=== PATIENT | male | born 1970 ===

== ENCOUNTER 2020-06-19 08:18 | Outpatient (REF) | payer OTHER, SELFPAY ==
[2020-06-19 12:02] LABS: Estimated Average Glucose 192 mg/dL; Hemoglobin A1c % 8.3 %
[2020-06-19 12:18] LABS: Microalbum/Creatinine Ratio Ur 29.4 ug/mg cr
[2020-06-19 12:20] LABS: Alanine Aminotransferase 21 U/L (0-40); Albumin Level 4.4 g/dL (3.5-5.0); Alkaline Phosphatase 92 U/L (39-117); Anion Gap 10 (12-20); Aspartate Amino Transferase 16 U/L (5-37); Bilirubin Total 0.7 mg/dL (0.0-1.0); Blood Urea Nitrogen 13 mg/dL (9-16); Calcium 9.4 mg/dL (8.4-10.2); Carbon Dioxide 29 mmol/L (22-29); Chloride 102 mmol/L (96-108); Cholesterol 131 mg/dL; Estimated Glomerular Filt Rate > 60; Glucose Fasting 188 mg/dL (60-99); HDL Cholesterol 41 mg/dL; LDL Cholesterol Calculated 80 mg/dl; Potassium 4.4 mmol/L (3.3-5.1); Sodium 137 mmol/L (135-145); Total Protein 7.8 g/dL (6.5-8.0); Triglycerides 52 mg/dL
[2020-06-20 05:42] LABS: LDL Cholesterol Direct 79 mg/dL (<100)
== END 2020-06-19 08:19 | disposition home or self-care (01) ==
LOC: HO.LAB 08:18
PROVIDERS: Visit Provider Nurse Practitioner Gerontology
DX: E11.65 Type 2 diabetes mellitus with hyperglycemia (principal); E11.42 Type 2 diabetes mellitus with diabetic polyneuropathy; Z79.4 Long term (current) use of insulin; I10 Essential (primary) hypertension; E78.5 Hyperlipidemia, unspecified; E66.09 Other obesity due to excess calories
CPT/HCPCS: 36415; 80053; 80061; 82043; 83036; 83721

== ENCOUNTER → 2020-07-11 12:35 | Outpatient (BNVA) | payer OTHER, SELFPAY | PROVIDERS: PCP Internal Medicine; Visit Provider Internal Medicine Cardiovascular Disease | DX: G47.30 Sleep apnea, unspecified (principal); I25.5 Ischemic cardiomyopathy | CPT/HCPCS: 93005; 99212 ==

== ENCOUNTER → 2020-08-08 10:16 | Outpatient (REF) | payer OTHER, SELFPAY | LOC: HO.SL 10:16 | PROVIDERS: PCP Internal Medicine; Visit Provider Internal Medicine Cardiovascular Disease | DX: G47.30 Sleep apnea, unspecified (principal) | CPT/HCPCS: 95806 ==

== ENCOUNTER → 2020-10-04 13:03 | Outpatient (BNVA) | payer OTHER, SELFPAY | PROVIDERS: PCP Internal Medicine; Visit Provider Nurse Practitioner Gerontology ==

== ENCOUNTER 2021-03-11 12:40 | Outpatient (REF) | payer OTHER, SELFPAY ==
--- NOTE | ~2021-03-11 | XR_ITS ---
EXAMINATION: XR RIBS, LEFT CLINICAL INFORMATION: S20.219A - Contusion of unspecified front wall of thorax COMPARISON: Chest radiographs 06/22/2019 TECHNIQUE: Frontal view chest and 3 views left ribs are obtained for a total of 4 views. FINDINGS: There is no visible rib fracture or rib destructive process. The lungs are clear. There is no pneumothorax or pleural reaction, infiltrate, or effusion. The heart is normal in size. The hilar and mediastinal contours are similar to prior studies. Thoracic spine again show dextrocurvature curvature with degenerative changes. XR/XR ribs LT min 3V w CXR1V IMPRESSION: Unremarkable examination.
== END 2021-03-11 12:41 | disposition home or self-care (01) ==
LOC: HO.HMGCX 12:40
PROVIDERS: PCP Internal Medicine; Visit Provider Internal Medicine
DX: S20.212A Contusion of left front wall of thorax, initial encounter (principal)
CPT/HCPCS: 71101

== ENCOUNTER → 2021-04-23 09:12 | Outpatient (BNVA) | payer OTHER, SELFPAY | PROVIDERS: PCP Internal Medicine; Visit Provider Nurse Practitioner Gerontology ==

== ENCOUNTER 2021-07-01 11:35 | Outpatient (REF) | payer OTHER, SELFPAY ==
[2021-07-01 13:07] LABS: Alanine Aminotransferase 21 U/L (0-40); Albumin Level 4.5 g/dL (3.5-5.0); Alkaline Phosphatase 102 U/L (39-117); Anion Gap 12 (12-20); Aspartate Amino Transferase 16 U/L (5-37); Bilirubin Total 0.6 mg/dL (0.0-1.0); Blood Urea Nitrogen 16 mg/dL (9-16); Calcium 10.3 mg/dL (8.4-10.2); Carbon Dioxide 26 mmol/L (22-29); Chloride 105 mmol/L (96-108); Cholesterol 165 mg/dL; Estimated Glomerular Filt Rate > 60; Glucose Fasting 141 mg/dL (60-99); HDL Cholesterol 41 mg/dL; LDL Cholesterol Calculated 112 mg/dl; Potassium 4.3 mmol/L (3.3-5.1); Sodium 139 mmol/L (135-145); Triglycerides 62 mg/dL
[2021-07-01 14:02] LABS: Estimated Average Glucose 177 mg/dL; Hemoglobin A1c % 7.8 %
[2021-07-01 14:23] LABS: Creatinine Urine 88.02 mg/dL; Microalbum/Creatinine Ratio Ur 12.4 ug/mg cr
[2021-07-02 07:41] LABS: LDL Cholesterol Direct 114 mg/dL (<100)
== END 2021-07-01 11:36 | disposition home or self-care (01) ==
LOC: HO.LAB 11:35
PROVIDERS: PCP Internal Medicine; Visit Provider Nurse Practitioner Gerontology
DX: E11.65 Type 2 diabetes mellitus with hyperglycemia (principal); Z79.4 Long term (current) use of insulin
CPT/HCPCS: 36415; 80053; 80061; 82043; 83036; 83721

== ENCOUNTER → 2021-10-06 13:21 | Outpatient (REF) | payer OTHER, SELFPAY ==
--- NOTE | 2021-10-06 13:25 | CA_ITS ---
Transthoracic Echocardiogram Patient (Last, First, Middle): Jd Li A Gender: Male Date of : 1970 Age: 51 Procedure Date: 10/06/2021 Procedure Type: Transthoracic Echocardiogram Location: OP Height: 187.96 cm Weight: 126.1 kg BSA: 2.50 m2 Heart Rate: bpm BP: 126 / 80 mmHg Restorative Art Embalmer: BECKIE Referring MD: Reggie Guerin MD Symptoms: ISCHEMIC CARDIOMYOPATHY Study Quality: Technically Difficult/contrast Conclusions: - 1. Moderate LV systolic dysfunction with LVEF of 35-40% with regional wall motion abnormality in the LAD territory consistent with ischemic cardiomyopathy with impaired relaxation filling pattern 2. Normal cardiac valvular Dopplers 3. No gross pericardial effusion 4. Normal RV systolic pressure Findings Procedure Information Contrast agent, definity, is being given per protocol without apparent complications. Left Ventricle Normal left ventricular cavity size. There is mildly increased left ventricular wall thickness. The left ventricular systolic function is moderately decreased. The visually estimated ejection fraction is between 35 40%. Spectral Doppler is indicative of an impaired relaxation filling pattern. E/E prime ratio is between 8 and 15 consistent with indeterminate filling pressures. Wall Motion Rest Echo Findings The mid inferoseptal segment is hypokinetic. The apex, apical anterior, apical inferior, mid anterior, apical septum, and mid anteroseptal segments are akinetic. All other scored wall segments showed normal motion. Right Ventricle Normal right ventricular cavity size and systolic function. Atria The left atrium is likely dilated. Interatrial shunt cannot be excluded. The right atrium was not well visualized. Aortic Valve The aortic valve structure and function is likely normal. There is no aortic valve stenosis. There is no aortic valve regurgitation. Mitral Valve Normal mitral valve structure and function. There is trace mitral valve regurgitation. There is no mitral valve stenosis. Pulmonic Valve The pulmonic valve was not well visualized. Tricuspid Valve Likely normal tricuspid valve structure and function. There is trace tricuspid valve regurgitation. The right ventricular systolic pressure is normal. The right ventricular systolic pressure is 18 mmHg. Normal right atrial pressure. There is no evidence of pulmonary hypertension. Great Vessels All visible segments of the aorta are normal in size. The pulmonary artery was not well visualized. Venous The inferior vena cava is normal in size. Pericardium/Pleural There is no evidence of pericardial effusion. Prior Study Comparison No significant change compared to prior study dated: 01/16/2019. Measurements 2D Linear Measurements IVSd: 1.37 0.6-0.9/0.6-1.0 cm LVIDd: 4.81 3.9-5.3/4.2-5.9 cm LVIDd Index: 1.92 2.4-3.2/2.2-3.1 cm/m2 LVIDs: 3.96 2.0-3.6 cm LVPWd: 1.32 0.7-1.1 cm LA Diam: 4.10 2.7-3.8/3.0-4.0 cm LAIDs Index: 1.64 1.5-2.3 cm/m2 LV Mass: 323.01 67-162/88-224 g LV Mass Index: 129.21 43-95/49-115 g/m2 LVOT Diam: 2.60 3.0+(-)1.3 cm 2D Systolic Function EF 4C: 36.40 >55% EF 2C: 43.20 >55% EF BiP: 39.80 >55% Aortic Valve AoV Pk Marek: 1.00 AoV Mn Marek: 0.74 AoV VTI: 0.15 AoV Pk Grad: 4.00 Aov Mn Grad: 2.00 TRISHA Cont.VTI: 4.08 LVOT LVOT Pk Marek: 0.79 LVOT Mn Marek: 0.52 LVOT VTI: 0.11 LVOT Pk Grad: 2.00 LVOT Mn Grad: 1.00 LVOT Diam: 2.60 LVOT Area: 5.31 Right Ventricle TAPSE (mm): 25.70 TVS' Marek: 9.79 Tricuspid Valve TR Pk Marek: 1.95 TR Pk Grad: 15.00 RA Press: 3.00 RVSP: 18.00 Great Vessels Aorta Sinus of Valsalva: 4.41 2.0-3.[address] Ridge: 3.28 1.7-3.4 cm Ao Asc: 3.40 2.1-3.4 cm Ao Arch: 2.60 Updated in Other Vendor System with Status of Final Nikolai Weiss MD electronically signed on 10/07/2021 2:03:28 PM with status of Final
== END ==
LOC: HO.CARD 13:21
PROVIDERS: PCP Internal Medicine; Visit Provider Internal Medicine Cardiovascular Disease
DX: I25.5 Ischemic cardiomyopathy (principal)
CPT/HCPCS: 93306; Q9957

== ENCOUNTER → 2021-10-14 13:32 | Outpatient (BNVA) | payer OTHER, SELFPAY | PROVIDERS: PCP Internal Medicine; Referring Provider Internal Medicine; Visit Provider Nurse Practitioner Family | DX: I25.10 Atherosclerotic heart disease of native coronary artery without angina pectoris (principal); G47.33 Obstructive sleep apnea (adult) (pediatric); I25.5 Ischemic cardiomyopathy; I10 Essential (primary) hypertension; E78.5 Hyperlipidemia, unspecified; E66.09 Other obesity due to excess calories; Z68.36 Body mass index [BMI] 36.0-36.9, adult | CPT/HCPCS: 93005; 99212 ==

== ENCOUNTER 2022-07-29 11:16 | Outpatient (REF) | payer OTHER, SELFPAY ==
[2022-07-29 11:27] LABS: MANUAL DIFF FLAG NO
[2022-07-29 11:43] LABS: Basophils Percent Auto 0.5 % (0-2); Eosinophils Absolute Auto 0.2 X10*3/uL (0.0-0.4); Eosinophils Percent Auto 4.3 % (0-4); Hematocrit 41.1 % (42.0-52.0); Hemoglobin 13.7 g/dl (14.0-18.0); Imm Gran Abs Auto 0.03 X10*3/uL (0.00-0.03); Imm Gran Pct Auto 0.5 % (0.0-0.4); Lymphocytes Absolute Auto 1.4 X10*3/uL (1.2-4.9); Lymphocytes Percent Auto 24.3 % (20-40); Mean Corpuscular HGB Conc 33.3 g/dl (31.0-36.0); Mean Corpuscular Hemoglobin 27.3 pg (27.0-33.0); Monocytes Absolute Auto 0.5 X10*3/uL (0.1-1.2); Monocytes Percent Auto 9.6 % (2-11); Neutrophils Absolute Auto 3.4 x10*3/uL (2.0-8.3); Neutrophils Percent Auto 60.8 % (45-73); Platelet Count 190 X10*3/uL (160-400); Red Blood Count 5.01 X10*6/uL (4.60-5.80); Red Cell Distribution Width 12.8 % (11.0-16.0); White Blood Count 5.6 X10*3/uL (4.8-10.8)
[2022-07-29 12:11] LABS: Estimated Average Glucose 289 mg/dL; Hemoglobin A1c % 11.7 %
[2022-07-29 12:47] LABS: Creatinine Urine 142.23 mg/dL; Microalbum/Creatinine Ratio Ur 35.1 ug/mg cr
[2022-07-29 12:52] LABS: Alanine Aminotransferase 17 U/L (0-40); Albumin Level 4.1 g/dL (3.5-5.0); Alkaline Phosphatase 83 U/L (39-117); Anion Gap 11 (12-20); Aspartate Amino Transferase 16 U/L (5-37); Bilirubin Total 0.7 mg/dL (0.0-1.0); Blood Urea Nitrogen 13 mg/dL (9-16); Calcium 9.1 mg/dL (8.4-10.2); Carbon Dioxide 27 mmol/L (22-29); Chloride 104 mmol/L (96-108); Cholesterol 106 mg/dL; Estimated Glomerular Filt Rate > 60; Glucose Fasting 254 mg/dL (60-99); HDL Cholesterol 33 mg/dL; LDL Cholesterol Calculated 62 mg/dl; Potassium 4.7 mmol/L (3.3-5.1); Sodium 137 mmol/L (135-145); Total Protein 6.8 g/dL (6.5-8.0); Triglycerides 57 mg/dL
== END 2022-07-29 11:17 | disposition home or self-care (01) ==
LOC: HO.LAB 11:16
PROVIDERS: PCP Internal Medicine; Visit Provider Internal Medicine
DX: D64.9 Anemia, unspecified (principal); N28.9 Disorder of kidney and ureter, unspecified; E78.5 Hyperlipidemia, unspecified; E11.69 Type 2 diabetes mellitus with other specified complication; E66.01 Morbid (severe) obesity due to excess calories; E03.9 Hypothyroidism, unspecified; E11.65 Type 2 diabetes mellitus with hyperglycemia
CPT/HCPCS: 36415; 80053; 80061; 82043; 83036; 84443; 85025

== ENCOUNTER → 2022-08-13 15:48 | Outpatient (BNVA) | payer OTHER, SELFPAY | PROVIDERS: PCP Internal Medicine; Referring Provider Internal Medicine; Visit Provider Nurse Practitioner Family | DX: I21.3 ST elevation (STEMI) myocardial infarction of unspecified site (principal); I25.10 Atherosclerotic heart disease of native coronary artery without angina pectoris; I25.5 Ischemic cardiomyopathy; G47.33 Obstructive sleep apnea (adult) (pediatric); Z98.890 Other specified postprocedural states | CPT/HCPCS: 93005; 99212 ==

== ENCOUNTER → 2022-08-25 14:27 | Outpatient (BNVA) | payer OTHER, SELFPAY | PROVIDERS: PCP Internal Medicine; Visit Provider Internal Medicine | DX: G47.33 Obstructive sleep apnea (adult) (pediatric) (principal); G47.34 Idiopathic sleep related nonobstructive alveolar hypoventilation; E11.65 Type 2 diabetes mellitus with hyperglycemia; E11.42 Type 2 diabetes mellitus with diabetic polyneuropathy; I25.10 Atherosclerotic heart disease of native coronary artery without angina pectoris; I10 Essential (primary) hypertension; Z86.74 Personal history of sudden cardiac arrest; Z95.5 Presence of coronary angioplasty implant and graft; Z98.890 Other specified postprocedural states; Z79.82 Long term (current) use of aspirin; Z79.4 Long term (current) use of insulin | CPT/HCPCS: 99202 ==

== ENCOUNTER → 2022-09-03 13:08 | Outpatient (BNVA) | payer OTHER, SELFPAY | PROVIDERS: PCP Internal Medicine; Visit Provider Nurse Practitioner Family | DX: N40.0 Benign prostatic hyperplasia without lower urinary tract symptoms (principal); E11.69 Type 2 diabetes mellitus with other specified complication; N52.1 Erectile dysfunction due to diseases classified elsewhere | CPT/HCPCS: 99202 ==

== ENCOUNTER → 2022-09-15 20:30 | Outpatient (REF) | payer OTHER, SELFPAY | LOC: HO.SL 20:30 | PROVIDERS: PCP Internal Medicine; Visit Provider Internal Medicine | DX: G47.33 Obstructive sleep apnea (adult) (pediatric) (principal); G47.34 Idiopathic sleep related nonobstructive alveolar hypoventilation; Z98.890 Other specified postprocedural states | CPT/HCPCS: 95811 ==

== ENCOUNTER → 2022-09-17 12:35 | Outpatient (REF) | payer OTHER, SELFPAY ==
--- NOTE | 2022-09-17 12:38 | CA_ITS ---
Transthoracic Echocardiogram Patient (Last, First, Middle): Jd Li A Gender: Male Date of : 1970 Age: 52 Procedure Date: 09/17/2022 Procedure Type: Transthoracic Echocardiogram Location: OP Height: 187.96 cm Weight: 126.55 kg BSA: 2.50 m2 Heart Rate: 83 bpm BP: 110 / 68 mmHg Certified Bench Jeweler Technician: KAYLEY Referring MD: Allie Villa EXTRUSION PROCESS OPERATOR-Magali Base Filler: Nikolai Weiss MD Symptoms: I21.3 - ST elevation (STEMI) myocardial infarction of unspecified site Study Quality: Technically Difficult ECG Rhythm: Sinus Conclusions: - 1. Technically limited study despite use of contrast agent 2. Moderately reduced LV systolic function with LVEF of 35-40% with impaired relaxation filling pattern and underlying regional wall motion abnormality suggestive of ischemic cardiomyopathy Findings Procedure Information Contrast agent, definity, is being given per protocol without apparent complications. The quality of the study was despite the use of contrast and endocardial definition remains poor. The study quality is limited by patients body habitus. Left Ventricle Normal left ventricular cavity size. The left ventricular systolic function is moderately decreased. The visually estimated ejection fraction is between 35-40%. Spectral Doppler is indicative of an impaired relaxation filling pattern. E/E prime ratio is between 8 and 15 consistent with indeterminate filling pressures. Wall Motion Rest Echo Findings The mid anterior and apical lateral segments are hypokinetic. The apical anterior, apical inferior, apical septum, mid inferoseptal, and mid anteroseptal segments are akinetic. The apex segment is dyskinetic. All other scored wall segments showed normal motion. Prior Study Comparison No significant change compared to prior study dated: 10/06/2021. Measurements 2D Linear Measurements IVSd: 1.68 0.6-0.9/0.6-1.0 cm LVIDd: 5.24 3.9-5.3/4.2-5.9 cm LVIDd Index: 2.10 2.4-3.2/2.2-3.1 cm/m2 LVIDs: 4.13 2.0-3.6 cm LVPWd: 0.75 0.7-1.1 cm LV Mass: 320.00 67-162/88-224 g LV Mass Index: 128.00 43-95/49-115 g/m2 LVOT Diam: 2.50 3.0+(-)1.3 cm 2D Systolic Function EF 4C: 29.80 >55% Mitral Valve MV Pk E: 0.48 MV PK A: 0.66 MV Decel Time: 153.00 E/A: 0.70 E'Lateral: 3.48 E/E' Lat: 13.90 PHT: 45.00 MVA PHT: 4.89 Decel Clare: 3.17 LVOT LVOT Pk Marek: 0.70 LVOT Mn Marek: 0.51 LVOT VTI: 0.13 LVOT Pk Grad: 2.00 LVOT Mn Grad: 1.00 LVOT Diam: 2.50 LVOT Area: 4.91 Diastolic Function MV Pk E: 0.48 MV Pk A: 0.66 E/A: 0.70 E' Laterial: 3.48 E/E' Lat: 13.90 Right Ventricle TAPSE (mm): 18.40 TVS' Marek: 10.80 Tricuspid Valve RA Press: 8.00 Updated in Other Vendor System with Status of Final Nikolai Weiss MD electronically signed on 09/18/2022 2:20:30 PM with status of Final
== END ==
LOC: HO.CARD 12:35
PROVIDERS: PCP Internal Medicine; Visit Provider Nurse Practitioner Family
DX: I21.3 ST elevation (STEMI) myocardial infarction of unspecified site (principal)
CPT/HCPCS: 93308; Q9957

== ENCOUNTER 2022-11-11 13:15 | Outpatient (AMB) | payer OTHER, SELFPAY ==
--- NOTE | 2022-11-11 13:25 | A.OFFVIS_ITS ---
Intake Vital Signs 11/11/22 13:26 Height 6 ft 2 in Weight 284 lb 6.341 oz BMI 36.5 BP 118/70 Blood Pressure Location Lt brachial Position Sitting Pulse 89 Pulse Source Pulse Oximeter Pulse Oximetry (%) 98 Oxygen Delivery Method Room Air Intake Visit Reasons: Sleep Study Follow Up Intake Note: Patient here today to follow up Sleep Study Results. Supervisor Chassis Assembly Required: No Allergies metoprolol [METOPROLOL] Allergy (Unknown, Verified 11/11/22 14:00) UNKNOWN Medication List - Last Reconciled 11/11/22 by Amalia Beck MD aspirin (Adult Low Dose Aspirin) 81 mg PO DAILY atorvastatin 80 mg PO BEDTIME blood sugar diagnostic (FreeStyle Lite Strips) As directed three times a day blood-glucose meter (FreeStyle Lite Meter kit) As directed to test 3 times per day carvedilol 6.25 mg (2 x 3.125 mg) PO BID dulaglutide (Trulicity) 1.5 mg (0.5 mL) subcut QWEEK ezetimibe 10 mg PO DAILY insulin glargine (Lantus Solostar U-100 Insulin) 45 units (0.45 mL) subcut BID lancets (FreeStyle Lancets) As directed three time a day pen needle, diabetic As directed pen needle, diabetic (Comfort EZ Pen [place]) TWICE A DAY sacubitril-valsartan 24-26 mg 1 tab PO BID spironolactone 25 mg PO DAILY tadalafil (Cialis) 20 mg PO DAILY PRN 90 days ticagrelor 90 mg PO BID Do you need a note to return to daycare/school/sports/work: No HPI Sleep Study Follow Up HPI Details This 52 years old gentleman is grossly obese. His complaint of very poor sleep at night and excessive daytime sleepiness continues. He is not able to work because of this issue. He remains grossly obese. Because of his severe obstructive sleep apnea and hypoxemia he was referred for CPAP titration in the sleep lab, which was done on . He was titrated up to 12 cm, with significant improvement in his obstructive events. Also hypoxemia was corrected. Patient used nasal mask in the sleep lab, sleep was definitely improved, however he remained uncomfortable due to air leak through the mouth. He is the chronically mouth breather. [facility] Medical History CAD (coronary artery disease) Essential hypertension History of torn meniscus of right knee Hyperlipidemia LDL goal <70 Infection of penis Nocturnal hypoxemia Obesity due to excess calories Type 2 diabetes mellitus with diabetic polyneuropathy Type 2 diabetes mellitus with hyperglycemia, with long-term current use of insulin Surgical History History of lateral meniscus repair of right knee Hx of cardiac catheterization Family History Father No problems noted. Mother No problems noted. Son Diabetes mellitus type 1 Social History Household Members: Family Housing: Apartment Alcohol intake: current Alcohol intake frequency: does not drink Patient Tobacco Use Status: Never used Tobacco e-Cigarette/Vaping Use: Never Used Second Hand Smoke Exposure: No service: No Current occupational status: unemployed Cognitive needs: No Hearing needs: No Vision needs: Yes (Glasses) Review of Systems Const All systems reviewed & are unremarkable except as noted in HPI and below Eyes Reports no additional complaints ENT Reports no additional complaints Card Denies chest pain (Status post cardiac catheterization, no chest pain at present), Denies leg edema and Reports dyspnea Resp Reports no additional complaints and Reports dyspnea GI Reports no additional complaints Reports no additional complaints Musc Reports no additional complaints Skin/Breast Reports system reviewed and no additional complaints, except as documented Neuro Reports no additional complaints Physical Exam Vital Signs: Last Vital Signs Pulse 89 11/11/22 13:26 BP 118/70 11/11/22 13:26 Pulse Ox 98 11/11/22 13:26 Oxygen Delivery Method Room Air 11/11/22 13:26 BMI result Body Mass Index 36.5 Const Other: This gentleman is tall and moderately obese, with a round face. General: comfortable, no acute distress, alert and awake Orientation/consciousness: patient oriented x3 HEENT Other: He has a round face, large neck, and narrow oropharynx, Mallampati class 4. Head: Yes normal to inspection General nose exam: No nasal polyps present and No nasal discharge present Face and sinus: Yes sinuses nontender Mouth: oropharynx abnormals (Crowded and narrow Mallampati class 4) Throat: Yes posterior oropharynx normal Eyes General: appearance normal, both eyes and all related structures Neck Neck: Yes normal visual inspection, Yes no lymphadenopathy, Yes trachea midline, Yes no JVD and Yes other (Neck size 18-1/2 inch) Thyroid: Thyroid normal Chest Chest palpation & inspection: normal inspection of the chest, normal palpation of entire chest wall and no tenderness Resp Effort & Inspection: normal respiratory effort Auscultation: clear to auscultation bilaterally, no crackles and no wheezes Cardio Palpation: normal PMI Rate: regular rate Rhythm: regular rhythm Heart sounds: no gallops and no murmurs Peripheral pulses: Peripheral pulses 2+ throughout GI Palpation (GI): Soft to palpation, nontender, No hepatosplenomegaly present, no masses and Other GI palpation findings present (Abdomen is obese and slightly protuberant) Auscultation: normal bowel sounds Back/Spine/Pelvis Thoracic/Lumbar Spine: thoracic and lumbar spine normal to inspection Skin General skin exam: no rashes or lesions noted Neuro General: patient oriented x3 and no focal motor deficits Cranial nerves: Yes CN's II-XII intact bilaterally Extrem General: Yes normal to inspection, Yes no clubbing, cyanosis or edema and Yes no calf tenderness Psych Appearance: grossly normal and well kempt Speech and movement: Normal speech and movement present Results Reviewed Results Reviewed: CPAP TITRATION RESULTS ARE REVIEWED OPTIMAL RESULTS WERE OBTAINED WITH PRESSURE OF 12 CM USING NASAL MASK A FIT-20 Assessment & Plan Assessment & Plan (1) Obstructive sleep apnea: Comment: THIS GENTLEMAN SEEMS TO HAVE LONGSTANDING HISTORY OF OBSTRUCTIVE SLEEP APNEA, DIAGNOSED BY SLEEP STUDY IN JULY 2020, BUT SOMEHOW OR OTHER IT HAS GONE UN- TREATED. PATIENT WAS EDUCATED THOROUGHLY, THE RISKS OF UN-TREATED CAT EXPLAINED. CPAP titration in the sleep lab is completed. DISCUSSED WITH HIM VARIOUS TYPES OF INTERFACES AND MODE OF TREATMENT. 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 A FULLFACE MASK AFIT-30 IS THE ORDERED WITH HUMIDIFICATION, AND PRESSURE OF 12 CM. PATIENT WAS EDUCATED AND ENCOURAGED TO START USING THE CPAP ON A REGULAR BASIS. NOTE GIVEN TO HIM THAT UNTIL HIS SLEEP APNEA IS COMPLETELY TREATED HE SHOULD NOT DRIVE ON THE HIGHWAYS OF OR DRIVE ANY COMMERCIAL VEHICLES. Code(s): G47.33 - Obstructive sleep apnea (adult) (pediatric) (2) Nocturnal hypoxemia: Comment: HIS NOCTURNAL HYPOXEMIA IS PART ALL OF UNTREATED CAT AND NOCTURNAL HYPOVENTILATION. WITH CPAP TITRATION AND PRESSURE OF 12 CM THERE WAS NO RESIDUAL HYPOXEMIA. Code(s): G47.34 - Idiopathic sleep related nonobstructive alveolar hypoventilation (3) Obesity due to excess calories: Comment: PATIENT REMAINS GROSSLY OBESE. DISCUSSED WITH HIM THE NEED TO LOSE WEIGHT. I RECOMMENDED A WEIGHT LOSS OF 10% OF THE CURRENT WEIGHT WHICH WILL BE AROUND 28-30 LB S Code(s): E66.09 - Other obesity due to excess calories Coding Level of Care Code Est Pt Level 4 (87568) Diagnoses Obstructive sleep apnea G47.33 Nocturnal hypoxemia G47.34 Obesity due to excess calories E66.09
[2022-11-11 13:26] VITALS: BP 118/70; PULSE 89; O2SAT 98; BMI 36.5
== END 2022-11-11 13:52 | disposition home or self-care (01) ==
PROVIDERS: PCP Internal Medicine; Visit Provider Internal Medicine
DX: G47.33 Obstructive sleep apnea (adult) (pediatric) (principal); G47.34 Idiopathic sleep related nonobstructive alveolar hypoventilation; E66.09 Other obesity due to excess calories
CPT/HCPCS: 99214

== ENCOUNTER → 2022-11-11 13:15 | Outpatient (BNVA) | payer OTHER, SELFPAY | PROVIDERS: PCP Internal Medicine; Visit Provider Internal Medicine | DX: G47.33 Obstructive sleep apnea (adult) (pediatric) (principal); G47.34 Idiopathic sleep related nonobstructive alveolar hypoventilation; E66.09 Other obesity due to excess calories; Z68.36 Body mass index [BMI] 36.0-36.9, adult | CPT/HCPCS: 99212 ==

== ENCOUNTER 2022-11-16 14:40 | Outpatient (AMB) | payer OTHER, SELFPAY ==
[2022-11-16 15:37] VITALS: BP 120/70; PULSE 90; BMI 36.5
--- NOTE | 2022-11-16 15:37 | MHC.OFFVIS ---
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 Allergies metoprolol [METOPROLOL] Allergy (Unknown, Verified 11/16/22 15:43) UNKNOWN Medication List - Last Reconciled 11/16/22 by JAMESON Quinteros aspirin (Adult Low Dose Aspirin) 81 mg PO DAILY atorvastatin 80 mg PO BEDTIME blood sugar diagnostic (FreeStyle Lite Strips) As directed three times a day blood-glucose meter (FreeStyle Lite Meter kit) As directed to test 3 times per day carvedilol 6.25 mg (2 x 3.125 mg) PO BID 90 days dulaglutide (Trulicity) 1.5 mg (0.5 mL) subcut QWEEK ezetimibe 10 mg PO DAILY insulin glargine (Lantus Solostar U-100 Insulin) 45 units (0.45 mL) subcut BID lancets (FreeStyle Lancets) As directed three time a day pen needle, diabetic As directed pen needle, diabetic (Comfort EZ Pen [place]) TWICE A DAY sacubitril-valsartan 24-26 mg 1 tab PO BID 90 days spironolactone 25 mg PO DAILY tadalafil (Cialis) 20 mg PO DAILY PRN 90 days ticagrelor 90 mg PO BID 90 days HPI 3 MON FUP KM PT HPI Details Jd is a 52-year-old male with past medical history of obesity, hypertension, hyperlipidemia, diabetes, anterior wall NH, ischemic cardiomyopathy who recently presented to [facility] with chest discomfort and found to have anterior STEMI.? He underwent cardiac catheterization and had 3 stents placed to the proximal and mid LAD. On last visit it was noted that he had an abnormal sleep study in the past however not addressed. He was referred to pulmonology. A recent echo was done to evaluate his EF. Today he reports that he has seen the masseur/masseuse and is waiting on a new type of mask for treatment of his severe sleep apnea. He has not had any recurrent chest discomfort at rest or with activity. He has no shortness of breath during the day. No PND, orthopnea or edema. No dizziness, presyncope, syncope, falls. With his multi health issues he is asking about disability. He is taking his meds as directed. [facility] Medical History CAD (coronary artery disease) Essential hypertension History of torn meniscus of right knee Hyperlipidemia LDL goal <70 Infection of penis Nocturnal hypoxemia Obesity due to excess calories Type 2 diabetes mellitus with diabetic polyneuropathy Type 2 diabetes mellitus with hyperglycemia, with long-term current use of insulin Surgical History History of lateral meniscus repair of right knee Hx of cardiac catheterization Family History Father No problems noted. Mother No problems noted. Son Diabetes mellitus type 1 Social History Household Members: Family Housing: Apartment Alcohol intake: current Alcohol intake frequency: does not drink Patient Tobacco Use Status: Never used Tobacco e-Cigarette/Vaping Use: Never Used Second Hand Smoke Exposure: No service: No Current occupational status: unemployed Cognitive needs: No Hearing needs: No Vision needs: Yes (Glasses) Review of Systems Const Details: Fatigue Not sleeping at night All systems reviewed & are unremarkable except as noted in HPI and below Reports daytime sleepiness and Reports stops breathing during sleep ENT Reports dizziness Card Denies chest pain, Denies chest pain at rest, Denies chest pain with activity, Denies rapid heart rate, Denies pedal edema, Denies edema, Denies leg edema, Denies lightheadedness, Denies palpitations, Denies dyspnea, Denies dyspnea on exertion and Denies orthopnea Resp Denies cough, Denies dyspnea and Denies dyspnea on exertion GI Denies hematochezia and Denies change in stool character Musc Denies abnormal gait, Reports limited range of motion, Reports muscle cramps, Denies muscle weakness, Denies numbness, Denies radiating pain into limb, Denies stiffness and Denies tingling Neuro Denies abnormal gait, Reports dizziness, Denies numbness and Denies tingling Endo Denies palpitations Physical Exam Vital Signs: Last Vital Signs Pulse 90 11/16/22 15:37 BP 120/70 11/16/22 15:37 BMI result Body Mass Index 36.5 Const General: cooperative, healthy appearing, comfortable and no acute distress Orientation/consciousness: patient oriented x3 Neck Neck: Yes normal visual inspection Resp Effort & Inspection: normal respiratory effort Auscultation: clear to auscultation bilaterally, no crackles, no rales, no rhonchi and no wheezes Cardio Jugular venous distension: no JVD Rate: regular rate Rhythm: regular rhythm Heart sounds: S1 normal heart sound present, S2 normal heart sound present, no murmurs and no rubs Neuro General: patient oriented x3 Extrem General: Yes normal to inspection and No no pedal edema Psych Appearance: grossly normal Mental Status: mental status grossly normal Speech and movement: Normal speech and movement present Assessment & Plan Assessment & Plan (1) STEMI (ST elevation myocardial infarction): Code(s): I21.3 - ST elevation (STEMI) myocardial infarction of unspecified site Plan: Presented to [facility] on 07/23/2022 with report of chest discomfort. EKG showed anterior ST elevations. Troponins positive for ACS. He underwent cardiac catheterization showing culprit lesion in the LAD. Three MAYRA placed. History of anterior NH with prior LAD stent. Now with ISR. Echocardiogram showed EF 25-30%, anterior septal wall is akinetic, RV apex is hypokinetic. He was continued on aspirin 81 mg daily indefinitely. Ticagrelor 90 mg b.i.d. uninterrupted for at least 1 year. He was continued on carvedilol. His rosuvastatin was changed to high-dose atorvastatin and Zetia was added. His losartan was stopped and changed to Entresto. EKG last visit showed normal sinus rhythm, anterior septal Q-waves and lateral T-wave inversions as seen on prior EKG, rate 95. Echocardiogram done 09/17/2022 shows EF 35-40%, wall motion abnormality consistent with ischemic cardiomyopathy. Today he reports feeling well with the exception ongoing fear and anxiety over his heart condition and health in general. He tells me he is now working on getting his diabetes well controlled. Taking care of his sleep apnea and going to work on weight loss. He has no recurrent anginal symptoms. Reviewed cardiac risk factors and need for ongoing risk factor modification. Signs and symptoms of angina reviewed. Emergency care if ever needed for symptoms. Limited echo in few weeks to reassess EF and wall motion. Cardiology office visit in 3 months, sooner if needed (2) S/P cardiac catheterization: Comment: 07/23/2022, anterior STEMI, mid LAD 95% stenosis, proximal LAD 95% stenosis, severe ISR, 1st diagonal 90% stenosis, left circumflex 70% stenosis, RCA mid 70% stenosis. Three drug-eluting stents placed to the LAD Code(s): Z98.890 - Other specified postprocedural states (3) CAD (coronary artery disease): Code(s): I25.10 - Atherosclerotic heart disease of [place] coronary artery without angina pectoris (4) Ischemic cardiomyopathy: Code(s): I25.5 - Ischemic cardiomyopathy Plan: History of ischemic cardiomyopathy from his original NH with prior known EF 35-40%. Recent echo from [facility] as above with EF 25-30%. Echo done 09/17/2022 shows EF 35-40%. He does not appear fluid overloaded on exam. Denies PND, orthopnea or edema. He is on carvedilol and Entresto for neurohormonal modulation. Signs and symptoms of heart failure reviewed with him. Mechanism of ischemic cardiomyopathy discussed. (5) Obstructive sleep apnea: Comment: THIS GENTLEMAN SEEMS TO HAVE LONGSTANDING HISTORY OF OBSTRUCTIVE SLEEP APNEA, DIAGNOSED BY SLEEP STUDY IN JULY 2020, BUT SOMEHOW OR OTHER IT HAS GONE UN-TREATED. PATIENT WAS EDUCATED THOROUGHLY, THE RISKS OF UN-TREATED CAT EXPLAINED. CPAP titration in the sleep lab is completed. DISCUSSED WITH HIM VARIOUS TYPES OF INTERFACES AND MODE OF TREATMENT. 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 A FULLFACE MASK AFIT-30 IS THE ORDERED WITH HUMIDIFICATION, AND PRESSURE OF 12 CM. PATIENT WAS EDUCATED AND ENCOURAGED TO START USING THE CPAP ON A REGULAR BASIS. NOTE GIVEN TO HIM THAT UNTIL HIS SLEEP APNEA IS COMPLETELY TREATED HE SHOULD NOT DRIVE ON THE HIGHWAYS OF OR DRIVE ANY COMMERCIAL VEHICLES. Code(s): G47.33 - Obstructive sleep apnea (adult) (pediatric) Plan: Sleep study done 08/08/2020 showing severe obstructive sleep apnea. On last visit he told me he was not aware of this result. He admits to echo ongoing issues with sleep and now has fatigue in the daytime with activities. He was referred to pulmonology and has seen Dr. Beck. He has tried nasal pillows for CPAP and is now waiting to try a full face mask. The importance of sleep apnea treatment has been reviewed with him. (6) Essential hypertension: Code(s): I10 - Essential (primary) hypertension Plan: Well controlled presently. Continue current med manage (7) Hyperlipidemia LDL goal <70: Code(s): E78.5 - Hyperlipidemia, unspecified Plan: Labs at [facility] recently show LDL of 77. He was taken off rosuvastatin and put on high-dose atorvastatin as well as Zetia. Plan for fasting lipid profile at next visit (8) Obesity due to excess calories: Comment: PATIENT REMAINS GROSSLY OBESE. DISCUSSED WITH HIM THE NEED TO LOSE WEIGHT. I RECOMMENDED A WEIGHT LOSS OF 10% OF THE CURRENT WEIGHT WHICH WILL BE AROUND 28-30 LB S Code(s): E66.09 - Other obesity due to excess calories Plan: Discussed benefits of weight loss increase increasing his activity as tolerated. Coding Level of Care Code Est Pt Level 4 (92315) Diagnoses STEMI (ST elevation myocardial infarction) I21.3 S/P cardiac catheterization Z98.890 CAD (coronary artery disease) I25.10 Ischemic cardiomyopathy I25.5 Obstructive sleep apnea G47.33 Essential hypertension I10 Hyperlipidemia LDL goal <70 E78.5 Obesity due to excess calories E66.09 Time Spent (min) 28 Comment Chart review, documentation, interview, assess
== END 2022-11-16 16:17 | disposition home or self-care (01) ==
PROVIDERS: PCP Internal Medicine; Visit Provider Nurse Practitioner Family
DX: I21.3 ST elevation (STEMI) myocardial infarction of unspecified site (principal); Z98.890 Other specified postprocedural states; I25.10 Atherosclerotic heart disease of native coronary artery without angina pectoris; I25.5 Ischemic cardiomyopathy; G47.33 Obstructive sleep apnea (adult) (pediatric); I10 Essential (primary) hypertension; E78.5 Hyperlipidemia, unspecified; E66.09 Other obesity due to excess calories
CPT/HCPCS: 99214

== ENCOUNTER → 2022-11-16 14:40 | Outpatient (BNVA) | payer OTHER, SELFPAY | PROVIDERS: PCP Internal Medicine; Visit Provider Nurse Practitioner Family | DX: I21.3 ST elevation (STEMI) myocardial infarction of unspecified site (principal); I25.10 Atherosclerotic heart disease of native coronary artery without angina pectoris; I25.5 Ischemic cardiomyopathy; I10 Essential (primary) hypertension; G47.33 Obstructive sleep apnea (adult) (pediatric); E78.5 Hyperlipidemia, unspecified; E66.09 Other obesity due to excess calories; Z98.890 Other specified postprocedural states | CPT/HCPCS: 99212 ==

== ENCOUNTER 2022-12-15 12:06 | Outpatient (REF) | payer OTHER, SELFPAY ==
[2022-12-15 15:05] LABS: Prostate Specific Antigen 0.17 ng/mL (<0.05-4.0)
== END 2022-12-15 12:07 | disposition home or self-care (01) ==
LOC: HO.LAB 12:06
PROVIDERS: PCP Physician Assistant; Visit Provider Nurse Practitioner Family
DX: Z12.5 Encounter for screening for malignant neoplasm of prostate (principal); N40.0 Benign prostatic hyperplasia without lower urinary tract symptoms
CPT/HCPCS: 36415; 84153

== ENCOUNTER 2022-12-16 10:53 | Outpatient (AMB) | payer OTHER, SELFPAY ==
--- NOTE | 2022-12-16 10:54 | A.OFFVIS_ITS ---
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 Accompanied by: Self / Same As Patient Allergies metoprolol [METOPROLOL] Allergy (Unknown, Verified 12/16/22 22:15) UNKNOWN Medication List - Last Reconciled 12/16/22 by ANGIE Davis- aspirin (Adult Low Dose Aspirin) 81 mg PO DAILY atorvastatin 80 mg PO BEDTIME blood sugar diagnostic (FreeStyle Lite Strips) As directed three times a day blood-glucose meter (FreeStyle Lite Meter kit) As directed to test 3 times per day carvedilol 6.25 mg (2 x 3.125 mg) PO BID 90 days dulaglutide (Trulicity) 1.5 mg (0.5 mL) subcut QWEEK ezetimibe 10 mg PO DAILY insulin glargine (Lantus Solostar U-100 Insulin) 45 units (0.45 mL) subcut BID lancets (FreeStyle Lancets) As directed three time a day pen needle, diabetic As directed pen needle, diabetic (Comfort EZ Pen [place]) TWICE A DAY sacubitril-valsartan 24-26 mg 1 tab PO BID 90 days sildenafil (Viagra) 100 mg PO DAILY PRN 90 days spironolactone 25 mg PO DAILY ticagrelor 90 mg PO BID 90 days HPI HPI Comments History of Present Illness Details Jd is a pleasant 52-year-old male patient of Dr. Yates. He has a past medical history of obesity, hyperlipidemia, hypertension, type 2 diabetes with polyneuropathy, CAD, and CAT. He presents to the office today for a follow up. Of note, patient was seen approximately 3 months ago as a new patient for erectile dysfunction at which time he was started on PRN Cialis for ED and a PSA was ordered for further assessment and evaluation. PSA 12/09--0.2. In discussion with the patient today he reports no improvement in erectile dysfunction with as needed Cialis 1 hour prior to sexual activity. He discusses continuing to work on his uncontrolled diabetes. He also reports just starting to be compliant with CPAP machine. Discussed at length sleep, healthy diet, weight loss, and exercise in relation to erections as well as overall health and well-being. Discussed uncontrolled diabetes and noncompliance with CPAP machine in relation to erectile dysfunction. Patient otherwise denies any urological issues or concerns. When asked he denies urinary urgency, urinary frequency, incontinence, nocturia, hematuria, dysuria, foul smelling urine, changes to urinary stream, flank pain, fever, and or chills. He is happy with his current voiding parameters. Discussed obtaining testosterone free and total for further assessment and evaluation as patient also reports fatigue however could be likely related to poor compliance with CPAP machine. However will assess. He otherwise offers no issues or concerns at this time. [facility] Medical History CAD (coronary artery disease) Essential hypertension History of torn meniscus of right knee Hyperlipidemia LDL goal <70 Infection of penis Nocturnal hypoxemia Obesity due to excess calories Type 2 diabetes mellitus with diabetic polyneuropathy Type 2 diabetes mellitus with hyperglycemia, with long-term current use of insulin Surgical History History of lateral meniscus repair of right knee Hx of cardiac catheterization Family History Father No problems noted. Mother No problems noted. Son Diabetes mellitus type 1 Social History Household Members: Family Housing: Apartment Alcohol intake: current Alcohol intake frequency: does not drink Patient Tobacco Use Status: Never used Tobacco e-Cigarette/Vaping Use: Never Used Second Hand Smoke Exposure: No service: No Current occupational status: unemployed Cognitive needs: No Hearing needs: No Vision needs: Yes (Glasses) Review of Systems Const Reports as per HPI Eyes Reports no additional complaints ENT Reports as per HPI Card Reports as per HPI Resp Reports as per HPI GI Reports no additional complaints Reports as per HPI Neuro Reports no additional complaints Psych Reports no additional complaints Endo Reports as per HPI Physical Exam Const General: cooperative, healthy appearing, comfortable, no acute distress, well developed, alert and awake Orientation/consciousness: patient oriented x3 Limitations: no limitations HEENT Head: Yes normal to inspection, Yes normocephalic and Yes atraumatic Ears: hearing grossly normal bilaterally Eyes General: appearance normal, both eyes and all related structures Neck Neck: Yes normal visual inspection and Yes trachea midline Chest Chest palpation & inspection: normal inspection of the chest Resp Effort & Inspection: normal respiratory effort and able to speak in complete sentences Cardio Rate: regular rate GI Inspection: Yes normal to inspection General: Yes no CVA tenderness Back/Spine/Pelvis Back: no CVA tenderness Skin General skin exam: no rashes or lesions noted Neuro General: patient oriented x3 Extrem General: Yes normal to inspection Psych Appearance: grossly normal and well kempt Mental Status: mental status grossly normal Speech and movement: Normal speech and movement present and Clear speech present Affect: normal affect Attitude: cooperative Thought process: Normal thought process present Thought content: Normal thought content present Insight: Fair insight present (Psych) Judgement: Fair judgement present (Psych) Results AMB Urinalysis, Automated UA Leukoctes 0 Madhu/uL Last Edit by [employer] on 12/16/22 11:14 UA Nitrite Last Edit by [facility] [employer] on 12/16/22 11:14 UA Urobilinogen 0.2 mg/dL Last Edit by [employer] on 12/16/22 11:14 UA Protein 30 mg/dL Last Edit by [facility] on 12/16/22 11:14 UA pH 5.5 Last Edit by [facility] on 12/16/22 11:14 UA Blood 0 Hugh/uL Last Edit by [employer] on 12/16/22 11:14 UA Specific [place] 1.030 Last Edit by [facility] on 12/16/22 11:14 UA Ketone Positive Last Edit by [employer] on 12/16/22 11:14 UA Bilirubin 1 mg/dL Last Edit by [facility] on 12/16/22 11:14 UA Glucose 0 mg/dL Last Edit by [facility] on 12/16/22 11:14 Results Reviewed Results Reviewed: Laboratory Last Values Urine pH (Auto) 5.5 12/16/22 11:13 Specific [place] (Auto) 1.030 12/16/22 11:13 Urine Protein (Auto) 30 mg/dL 12/16/22 11:13 Glucose (UA)(Auto) 0 mg/dL 12/16/22 11:13 Urine Ketones (Auto) Positive 12/16/22 11:13 Urine Blood (Auto) 0 Hugh/uL 12/16/22 11:13 Urine Bilirubin (Auto) 1 mg/dL 12/16/22 11:13 Urine Urobilinogen (Auto) 0.2 mg/dL 12/16/22 11:13 Leukocyte Esterase (Auto) 0 Madhu/uL 12/16/22 11:13 Assessment & Plan Assessment & Plan (1) Erectile dysfunction associated with type 2 diabetes mellitus: Code(s): E11.69 - Type 2 diabetes mellitus with other specified complication; N52.1 - Erectile dysfunction due to diseases classified elsewhere Plan In office urinalysis results reviewed with the patient today. Recent PSA results reviewed with the patient today; as noted above. Will obtain testosterone free and total for further assessment evaluation; discussed importance of obtaining labs two hours upon awakening. Discussed and stressed the importance of managing diabetes and compliance with CPAP machine for improvement erectile dysfunction as well as overall health and well-being. Start Viagra as prescribed and discussed. Discussed at length potential injectable treatment for erectile dysfunction if failing oral medications Follow-up in 3 months with lab to be completed prior; or sooner with any issues, concerns, and or questions. Orders: Orders Testosterone, Free/Total Today E11.69 - Type 2 diabetes mellitus with other specified complication, N52.1 - Erectile dysfunction due to diseases classified elsewhere, R53.83 - Other fatigue, R68.82 - Decreased libido AMB Urinalysis Automated Today Z13.9 - Encounter for screening, unspecified Medications: New sildenafil (Viagra) administer 30 minutes to 4 hours before activity [id number] [facility] [id number] Member [id number] 100 mg PO DAILY 90 days PRN 30 tabs 0RF sexual activity Discontinued tadalafil (Cialis) [id number] [facility] [id number] Member [id number] Discontinued Reason: Doctor's Order 20 mg PO DAILY 90 days PRN 30 tabs 3RF sexual activity Patient Instructions: The patient had an opportunity to ask questions regarding the treatment plan. All questions were answered. Physical exam, labs, and imaging were discussed and reviewed in detail. As well as risks, benefits, and discussion of treatment choices. No major barriers to understanding were identified. The patient expressed understanding and agreement with the above treatment plan. The patient was made aware they should contact our office by phone for worsening of their current condition, the appearance of new symptoms, or with any questions or concerns. Compliance is encouraged with any medications and follow up testing that is ordered. It is a privilege to be allowed the opportunity to participate in? your urological care.? Again, if you have any questions or concerns If you have any questions or concerns please do not hesitate to contact me. The office is [phone]. This note is constructed using voice recognition software. While every effort has been made to ensure accuracy filtration plant mechanic errors may have been included. Yours sincerely, MEGHNA Davis Coding Level of Care Code Est Pt Level 4 (54750) Diagnoses Erectile dysfunction associated with type 2 diabetes mellitus E11.69; N52.1
== END 2022-12-16 12:08 | disposition home or self-care (01) ==
PROVIDERS: PCP Physician Assistant; Visit Provider Nurse Practitioner Family
DX: E11.69 Type 2 diabetes mellitus with other specified complication (principal); N52.1 Erectile dysfunction due to diseases classified elsewhere
CPT/HCPCS: 99214

== ENCOUNTER → 2022-12-16 10:53 | Outpatient (BNVA) | payer OTHER, SELFPAY | PROVIDERS: Visit Provider Nurse Practitioner Family | DX: E11.69 Type 2 diabetes mellitus with other specified complication (principal); E11.65 Type 2 diabetes mellitus with hyperglycemia; E11.42 Type 2 diabetes mellitus with diabetic polyneuropathy; N52.1 Erectile dysfunction due to diseases classified elsewhere; R68.82 Decreased libido; R53.83 Other fatigue; Z79.4 Long term (current) use of insulin; Z79.82 Long term (current) use of aspirin; Z79.899 Other long term (current) drug therapy | CPT/HCPCS: 81003; 99212 ==

== ENCOUNTER 2022-12-25 08:21 | Outpatient (REF) | payer OTHER, SELFPAY ==
[2022-12-25 09:43] LABS: Hematocrit 40.5 % (42.0-52.0); Hemoglobin 13.7 g/dl (14.0-18.0); Mean Corpuscular HGB Conc 33.8 g/dl (31.0-36.0); Mean Corpuscular Hemoglobin 28.2 pg (27.0-33.0); Mean Corpuscular Volume 83.5 fL (80.0-98.0); Mean Platelet Volume 9.6 fL (9.4-12.4); Platelet Count 200 X10*3/uL (160-400); Red Blood Count 4.85 X10*6/uL (4.60-5.80); White Blood Count 5.5 X10*3/uL (4.8-10.8)
[2022-12-25 10:18] LABS: Alanine Aminotransferase 22 U/L (0-40); Albumin Level 4.2 g/dL (3.5-5.0); Alkaline Phosphatase 93 U/L (39-117); Anion Gap 10 (12-20); Aspartate Amino Transferase 14 U/L (5-37); Bilirubin Total 0.7 mg/dL (0.0-1.0); Blood Urea Nitrogen 15 mg/dL (9-16); Carbon Dioxide 25 mmol/L (22-29); Chloride 106 mmol/L (96-108); Cholesterol 93 mg/dL (<200); Estimated Glomerular Filt Rate > 60; Glucose Fasting 243 mg/dL (60-99); HDL Cholesterol 33 mg/dL (>40); LDL Cholesterol Calculated 45 mg/dL (<100); Sodium 137 mmol/L (135-145); Total Protein 7.4 g/dL (6.5-8.0); Triglycerides 79 mg/dL (<150)
[2022-12-30 15:08] LABS: Testosterone, Free 52.8 pg/mL (35.0-155.0); Testosterone, Total 388 ng/dL (250-1100)
== END 2022-12-25 08:22 | disposition home or self-care (01) ==
LOC: HO.LAB 08:21
PROVIDERS: Absent Provider Nurse Practitioner Family; PCP Physician Assistant; Visit Provider Physician Assistant
DX: I21.3 ST elevation (STEMI) myocardial infarction of unspecified site (principal); E11.42 Type 2 diabetes mellitus with diabetic polyneuropathy; E11.69 Type 2 diabetes mellitus with other specified complication; N52.1 Erectile dysfunction due to diseases classified elsewhere; R68.82 Decreased libido; R53.83 Other fatigue
CPT/HCPCS: 36415; 80053; 80061; 84402; 84403; 85027

== ENCOUNTER 2023-01-13 08:54 | Outpatient (AMB) | payer OTHER, SELFPAY ==
--- NOTE | 2023-01-13 09:14 | A.OFFPC_ITS ---
Vital Signs 01/13/23 09:16 Height 6 ft 2 in Weight 282 lb BMI 36.2 BP 112/74 Blood Pressure Location Lt brachial Position Sitting Respiration 17 Pulse 85 Pulse Source Pulse Oximeter Pulse Oximetry (%) 99 Oxygen Delivery Method Room Air Intake Visit Reasons: Transfer of care from Dr. Yates Intake Note: Pt is here to transfer care from Dr. Yates. F/U on DMII, pt requesting endocrinology referral. Sales Account Manager Required: No Accompanied by: Self / Same As Patient Allergies metoprolol [METOPROLOL] Allergy (Unknown, Verified 01/13/23 10:45) UNKNOWN Medication List - Last Reconciled 01/13/23 by Will De La Torre PA-C aspirin (Adult Low Dose Aspirin) 81 mg PO DAILY atorvastatin 80 mg PO BEDTIME blood sugar diagnostic (FreeStyle Lite Strips) As directed three times a day blood-glucose meter (FreeStyle Lite Meter kit) As directed to test 3 times per day carvedilol 6.25 mg (2 x 3.125 mg) PO BID 90 days dulaglutide (Trulicity) 3 mg (0.5 mL) subcut QWEEK 4 weeks ezetimibe 10 mg PO DAILY insulin glargine (Lantus Solostar U-100 Insulin) 45 units (0.45 mL) subcut BID lancets (FreeStyle Lancets) As directed three time a day pen needle, diabetic As directed pen needle, diabetic (Comfort EZ Pen [place]) TWICE A DAY sacubitril-valsartan 24-26 mg 1 tab PO BID 90 days sildenafil (Viagra) 100 mg PO DAILY PRN 90 days spironolactone 25 mg PO DAILY ticagrelor 90 mg PO BID 90 days Tobacco use date assessed: 07/29/22 Dental Screening Dental Screen Date: 01/13/23 Did you have a dental visit in the last 12 months?: Yes Did you have a dental problem in the last 6 months where you did not have access to dental care?: No Was dental information given to patient?: Patient has dentist HPI Transfer of care from Dr. Yates HPI Details Patient is a 52-year-old male here today for transfer of care visit. Patient has a past medical history significant for type 2 diabetes, coronary artery disease with stent x3, ischemic cardiomyopathy, hypertension, hyperlipidemia, morbid obesity, obstructive sleep apnea. Concerns--> reports having some knumbess in his hands and weaker sap ppm consultant strength. PLAN: Will try to order him an EMG to evaluate for his neuropathy in his upper extremities . Coronary artery disease: Recently had stents placed in his coronary arteries this past summer. Continues to follow cardiology. Also does have heart failure and does managed with spironolactone. .. Type 2 diabetes: Patient's type 2 diabetes has not been well controlled as of late. We he recently increased his Trulicity to 3 mg. Today's A1c much improved at 7.5 from 11.7. Has been working on following a diabetic diet since his cardiac stent placement. PLAN: Will try to set him up with an interest in assist to help follow a diabetic diet. .. Obstructive sleep apnea ( severe): Followed by pulmonology ( Dr Mckeon). Tries to be compliant with daily use of his CPAP machine though does not like his mask. [facility]LY [facility], LATER [facility] Medical History Nocturnal hypoxemia Infection of penis History of torn meniscus of right knee CAD (coronary artery disease) Type 2 diabetes mellitus with hyperglycemia, with long-term current use of insulin Type 2 diabetes mellitus with diabetic polyneuropathy Essential hypertension Hyperlipidemia LDL goal <70 Obesity due to excess calories Surgical History Hx of cardiac catheterization History of lateral meniscus repair of right knee Family History Father No problems noted. Mother No problems noted. Son Diabetes mellitus type 1 Social History Household Members: Family Housing: Apartment Alcohol intake: current Alcohol intake frequency: does not drink Patient Tobacco Use Status: Never used Tobacco e-Cigarette/Vaping Use: Never Used Second Hand Smoke Exposure: No service: No Current occupational status: unemployed Cognitive needs: No Hearing needs: No Vision needs: Yes (Glasses) Questionnaire Thrive Questionnaire Date Thrive assessed: 07/29/22 LLOYD-7 AMB Questionnaire LLOYD-7 Date LLOYD - 7 assessed: 07/29/22 Source: Developed by Drs. David Celis, Jazmin Christensen, Clif Oconnell and colleagues, with an educational keyanna from [employer] Review of Systems Const Denies headache(s) Eyes Denies loss of vision ENT Denies vertigo, Denies dizziness, Denies headache(s) and Denies sore throat Card Denies chest pain, Denies leg edema and Denies lightheadedness Resp Denies cough, Denies hemoptysis and Denies wheezing GI Denies abdominal pain, Denies melena, Denies constipation, Denies diarrhea and Denies vomiting Denies dysuria, Denies urinary frequency and Denies urinary urgency Musc Details: + bilateral upper extremity numbness, tingling and decreased ring Denies arthralgias, Denies joint swelling, Denies numbness and Denies tingling Neuro Denies Abnormal speech present, Denies behavioral changes, Denies vertigo, Denies dizziness, Denies headache(s), Denies loss of vision, Denies memory loss, Denies numbness and Denies tingling Psych Denies anxiety, Denies behavioral changes, Denies depression, Denies memory loss and Denies panic attacks Timmy/Lymph Denies easy bleeding and Denies easy bruising Aller/Immun Denies wheezing Physical exam (Primary Care) Vital Signs: Last Vital Signs Pulse 85 01/13/23 09:16 Resp 17 01/13/23 09:16 BP 112/74 01/13/23 09:16 Pulse Ox 99 01/13/23 09:16 Oxygen Delivery Method Room Air 01/13/23 09:16 BMI result Body Mass Index 36.2 BMI Assessment/Plan discussion: High Tobacco/Smoking Status: Tobacco use Status Tobacco use date assessed 07/29/22 01/13/23 09:15 Patient Tobacco Use Status Never used Tobacco 01/13/23 09:15 e-Cigarette/Vaping Use Never Used 01/13/23 09:15 Thrive Assessment: Date of Thrive Assessment Date Thrive assessed 07/29/22 01/13/23 09:15 Const Other: Morbidly obese General: healthy appearing, no acute distress, alert and awake Nutritional Appearance: well nourished Orientation/consciousness: oriented to person, oriented to place and oriented to time HENMT Ears: TM's normal bilaterally General nose exam: Normal nasal mucous membranes and turbinates present Eyes Conjunctivae: conjunctivae normal Sclerae: sclerae normal Pupils: Equal, round and reactive pupils present Neck Neck: Yes no lymphadenopathy and Yes no JVD Thyroid: Thyroid normal Carotids: no bruits Resp Effort & Inspection: normal respiratory effort and not tachypneic Auscultation: no crackles, no rales, no rhonchi and no wheezes Cardio Rate: regular rate Rhythm: regular rhythm Heart sounds: no murmurs and normal S1 and S2 GI Palpation (GI): Soft to palpation, nontender, no hepatomegaly and no splenomegaly Auscultation: normal bowel sounds Skin General skin exam: no rashes or lesions noted and dry skin Neuro General: oriented to person, oriented to place and oriented to time Cranial nerves: Yes Equal, round and reactive pupils present Speech: No Abnormal speech present Gait exam (Neuro): Normal gait present Motor exam (neuro): no tremor noted Extrem Right upper extremity: full ROM Left upper extremity: full ROM Right lower extremity: full ROM; no edema Left lower extremity: full ROM; no edema Psych Mental Status: mental status grossly normal Speech and movement: Normal speech and movement present Affect: normal affect Attitude: cooperative Thought process: Normal thought process present Results AMB Hemoglobin A1c AMB Hemoglobin A1c 7.5 % Last Edit by LEONORA Lino on 01/13/23 09:34 Results Reviewed Results Reviewed: Laboratory Last Values Hgb A1c (Clinic) 7.5 % (4.0-6.0) H 01/13/23 09:13 Assessment and Plan Assessment & Plan (1) CAD (coronary artery disease): Code(s): I25.10 - Atherosclerotic heart disease of [place] coronary artery without angina pectoris Qualifiers: Associated angina: with stable angina Coronary Disease-Associated Artery/Lesion type: [place] artery [place] vs. transplanted heart: [place] heart Qualified Code(s): I25.118 - Atherosclerotic heart disease of [place] coronary artery with other forms of angina pectoris Plan: As per HPI patient is followed by Cardiology. Continues on high-dose statin therapy and dual anti-platelet therapy. Recently had stents placed in his coronary arteries. (2) Type 2 diabetes mellitus with hyperglycemia, with long-term current use of insulin: Code(s): E11.65 - Type 2 diabetes mellitus with hyperglycemia; Z79.4 - assistant terminal manager (current) use of insulin Plan: Patient's type 2 diabetes suboptimally controlled. Since starting higher dose of Trulicity and being more consistent with a diabetic diet his A1c is much improved during her goal A1c is to be below 7.0 Will try to set him up with press loader to help him work on diabetic diet and portion control. (3) Hyperlipidemia LDL goal <70: Code(s): E78.5 - Hyperlipidemia, unspecified Plan: Patient's goal LDL to be below 70 due to his cardiovascular risk. (4) Essential hypertension: Code(s): I10 - Essential (primary) hypertension Plan: Patient's blood pressure acceptable today in office. Will continue him on his current dose of antihypertensive medication with goal blood pressure to be below 140/90 (5) Erectile dysfunction associated with type 2 diabetes mellitus: Code(s): E11.69 - Type 2 diabetes mellitus with other specified complication; N52.1 - Erectile dysfunction due to diseases classified elsewhere Plan: Continues to follow urology. Does use high-dose sildenafil on a p.r.n. basis for sexual activity for (6) Paresthesia of upper extremity: Code(s): R20.2 - Paresthesia of skin Plan: As per HPI patient reports upper extremity numbness and tingling likely related to diabetic neuropathy in his upper extremities. Will send for EMG test as to confirm suspicions of the neuropathy in his upper extremities spring (7) Ischemic cardiomyopathy: Code(s): I25.5 - Ischemic cardiomyopathy Plan: Patient has only history of ischemic cardiomyopathy, echocardiogram on [facility] showing reduced ejection fraction. He now continues on Entresto and spironolactone and seems to be euvolemic on physical exam today. Orders: Orders AMB Hemoglobin A1c 01/13/23 E11.69 - Type 2 diabetes mellitus with other specified complication, N52.1 - Erectile dysfunction due to diseases classified elsewhere NE electromyogram (EMG) 01/13/23 R20.2 - Paresthesia of skin Lipid Panel 01/13/23 I25.118 - Atherosclerotic heart disease of [place] coronary artery with other forms of angina pectoris Comprehensive [place]. Panel Fast 01/13/23 I25.118 - Atherosclerotic heart disease of [place] coronary artery with other forms of angina pectoris Complete Blood Count no Diff 01/13/23 I25.118 - Atherosclerotic heart disease of [place] coronary artery with other forms of angina pectoris Referrals Nutrition/Dietitian Referral E11.65 - Type 2 diabetes mellitus with hyperglycemia, Z79.4 - assistant terminal manager (current) use of insulin Coding Level of Care Code Est Pt Level 4 (61970) Diagnoses Coronary artery disease of [place] artery of [place] heart with stable angina pectoris I25.118 Associated angina: with stable angina Coronary Disease-Associated Artery/Lesion type: [place] artery [place] vs. transplanted heart: [place] heart Type 2 diabetes mellitus with hyperglycemia, with long-term current use of insulin E11.65; Z79.4 Hyperlipidemia LDL goal <70 E78.5 Essential hypertension I10 Erectile dysfunction associated with type 2 diabetes mellitus E11.69; N52.1 Paresthesia of upper extremity R20.2 Ischemic cardiomyopathy I25.5
[2023-01-13 09:16] VITALS: BP 112/74; PULSE 85; RESP 17; O2SAT 99; BMI 36.2
== END 2023-01-13 10:05 | disposition home or self-care (01) ==
PROVIDERS: PCP Physician Assistant; Visit Provider Physician Assistant
DX: E11.69 Type 2 diabetes mellitus with other specified complication (principal); N52.1 Erectile dysfunction due to diseases classified elsewhere
CPT/HCPCS: 83036; 99214

== ENCOUNTER 2023-01-13 10:17 | Outpatient (AMB) | payer OTHER, SELFPAY ==
[2023-01-13 10:24] VITALS: BP 100/72; PULSE 87; O2SAT 96; BMI 36.2
--- NOTE | 2023-01-13 10:24 | A.OFFVIS_ITS ---
Intake Vital Signs 01/13/23 10:24 Height 6 ft 2 in Weight 282 lb BMI 36.2 BP 100/72 Blood Pressure Location Lt brachial Position Sitting Pulse 87 Pulse Source Pulse Oximeter Pulse Oximetry (%) 96 Oxygen Delivery Method Room Air Intake Visit Reasons: Sleep Study Follow Up Intake Note: pt is here for follow up and says he received his cpap but needs new instructions on using his cpap and will take this to [facility] for reteaching and starting this up. Handling Tech Required: No Allergies metoprolol [METOPROLOL] Allergy (Unknown, Verified 01/13/23 10:45) UNKNOWN Medication List - Last Reconciled 01/13/23 by Amalia Beck MD aspirin (Adult Low Dose Aspirin) 81 mg PO DAILY atorvastatin 80 mg PO BEDTIME blood sugar diagnostic (FreeStyle Lite Strips) As directed three times a day blood-glucose meter (FreeStyle Lite Meter kit) As directed to test 3 times per day carvedilol 6.25 mg (2 x 3.125 mg) PO BID 90 days dulaglutide (Trulicity) 3 mg (0.5 mL) subcut QWEEK 4 weeks ezetimibe 10 mg PO DAILY insulin glargine (Lantus Solostar U-100 Insulin) 45 units (0.45 mL) subcut BID lancets (FreeStyle Lancets) As directed three time a day pen needle, diabetic As directed pen needle, diabetic (Comfort EZ Pen [place]) TWICE A DAY sacubitril-valsartan 24-26 mg 1 tab PO BID 90 days sildenafil (Viagra) 100 mg PO DAILY PRN 90 days spironolactone 25 mg PO DAILY ticagrelor 90 mg PO BID 90 days Do you need a note to return to daycare/school/sports/work: No HPI Sleep Study Follow Up HPI Details This 52 years old gentleman is here for follow-up, after he had CPAP titration. Study in the sleep lab. He has been prescribed the CPAP , equipment but has not had a chance to use. For his excuse he states that he was sick with a upper respiratory viral infection and then he was sick with some GI bug, so could not start using the CPAP. We have given him instructions to go to the open clinic of his the supplier, ( [facility] ) and get the instructions for proper use, and start using the CPAP regularly. In the meantime he still has difficulty in is sleeping at night with frequent awakenings and still remains tired. And sleepy during the daytime [facility] Medical History Nocturnal hypoxemia Infection of penis History of torn meniscus of right knee CAD (coronary artery disease) Type 2 diabetes mellitus with hyperglycemia, with long-term current use of insulin Type 2 diabetes mellitus with diabetic polyneuropathy Essential hypertension Hyperlipidemia LDL goal <70 Obesity due to excess calories Surgical History Hx of cardiac catheterization History of lateral meniscus repair of right knee Family History Father No problems noted. Mother No problems noted. Son Diabetes mellitus type 1 Social History (Reviewed 01/13/23 @ 10:28 by Laurel Villeda [facility]) Household Members: Family Housing: Apartment Alcohol intake: current Alcohol intake frequency: does not drink Patient Tobacco Use Status: Never used Tobacco e-Cigarette/Vaping Use: Never Used Second Hand Smoke Exposure: No service: No Current occupational status: unemployed Cognitive needs: No Hearing needs: No Vision needs: Yes (Glasses) Review of Systems Const All systems reviewed & are unremarkable except as noted in HPI and below Eyes Reports no additional complaints ENT Reports no additional complaints Card Denies chest pain (Status post cardiac catheterization, no chest pain at p resent), Denies leg edema and Reports dyspnea Resp Reports no additional complaints and Reports dyspnea GI Reports no additional complaints Reports no additional complaints Musc Reports no additional complaints Skin/Breast Reports system reviewed and no additional complaints, except as documented Neuro Reports no additional complaints Physical Exam Vital Signs: Last Vital Signs Pulse 87 01/13/23 10:24 BP 100/72 01/13/23 10:24 Pulse Ox 96 01/13/23 10:24 Oxygen Delivery Method Room Air 01/13/23 10:24 BMI result Body Mass Index 36.2 Const Other: This gentleman is tall and moderately obese, with a round face. General: comfortable, no acute distress, alert and awake Orientation/consciousness: patient oriented x3 HEENT Other: He has a round face, large neck, and narrow oropharynx, Mallampati class 4. Head: Yes normal to inspection General nose exam: No nasal polyps present and No nasal discharge present Face and sinus: Yes sinuses nontender Mouth: oropharynx abnormals (Crowded and narrow Mallampati class 4) Throat: Yes posterior oropharynx normal Eyes General: appearance normal, both eyes and all related structures Neck Neck: Yes normal visual inspection, Yes no lymphadenopathy, Yes trachea midline, Yes no JVD and Yes other (Neck size 18-1/2 inch) Thyroid: Thyroid normal Chest Chest palpation & inspection: normal inspection of the chest, normal palpation of entire chest wall and no tenderness Resp Effort & Inspection: normal respiratory effort Auscultation: clear to auscultation bilaterally, no crackles and no wheezes Cardio Palpation: normal PMI Rate: regular rate Rhythm: regular rhythm Heart sounds: no gallops and no murmurs Peripheral pulses: Peripheral pulses 2+ throughout GI Palpation (GI): Soft to palpation, nontender, No hepatosplenomegaly present, no masses and Other GI palpation findings present (Abdomen is obese and slightly protuberant) Auscultation: normal bowel sounds Back/Spine/Pelvis Thoracic/Lumbar Spine: thoracic and lumbar spine normal to inspection Skin General skin exam: no rashes or lesions noted Neuro General: patient oriented x3 and no focal motor deficits Cranial nerves: Yes CN's II-XII intact bilaterally Extrem General: Yes normal to inspection, Yes no clubbing, cyanosis or edema and Yes no calf tenderness Psych Appearance: grossly normal and well kempt Speech and movement: Normal speech and movement present Results AMB Hemoglobin A1c AMB Hemoglobin A1c 7.5 % Last Edit by LEONORA Lino on 01/13/23 09:34 Assessment & Plan Assessment & Plan (1) Obstructive sleep apnea: Comment: THIS GENTLEMAN HAS LONGSTANDING HISTORY OF OBSTRUCTIVE SLEEP APNEA, DIAGNOSED BY SLEEP STUDY IN JULY 2020, BUT SOMEHOW OR OTHER IT HAS GONE UN- TREATED. PATIENT WAS EDUCATED THOROUGHLY, THE RISKS OF UN-TREATED CAT EXPLAINED. HE DID UNDERGO CPAP TITRATION STUDY IN THE SLEEP LAB, AND USE OF FULLFACE MASK WITH PRESSURE SETTING OF 12 CM, WAS EFFECTIVE. HEAT ELIMINATED THE OBSTRUCTIVE EVENTS WELL HYPOXEMIA. PATIENT HAS THE CPAP AT HOME BUT HAS NOT STARTED USING IT. WE GAVE HIM INSTRUCTIONS FOR THE USAGE ONCE AGAIN, ALSO INSTRUCTED HIM TO HAVE A SESSION OF INITIAL TRAINING WITH THE CPAP SUPPLIER. AND START USING IT VERY REGULARLY. BENEFITS OF USING CPAP WAS EXPLAINED TO HIM AND HE SEEMS TO BE WELL MOTIVATED TO START USING THE CPAP. Code(s): G47.33 - Obstructive sleep apnea (adult) (pediatric) (2) Nocturnal hypoxemia: Comment: HIS NOCTURNAL HYPOXEMIA IS PART ALL OF UNTREATED CAT AND NOCTURNAL HYPOVENTILATION. WITH CPAP TITRATION AND PRESSURE OF 12 CM THERE WAS NO RESIDUAL HYPOXEMIA. Code(s): G47.34 - Idiopathic sleep related nonobstructive alveolar hypoventilation (3) Obesity due to excess calories: Comment: PATIENT REMAINS GROSSLY OBESE. DISCUSSED WITH HIM THE NEED TO LOSE WEIGHT. IT IS DIFFICULT FOR HIM TO LOSE WEIGHT THE, BECAUSE HE IS NOT ABLE TO DO MUCH EXERCISE. Code(s): E66.09 - Other obesity due to excess calories Coding Level of Care Code Est Pt Level 3 (84978) Diagnoses Obstructive sleep apnea G47.33 Nocturnal hypoxemia G47.34 Obesity due to excess calories E66.09
== END 2023-01-13 10:45 | disposition home or self-care (01) ==
PROVIDERS: PCP Physician Assistant; Visit Provider Internal Medicine
DX: G47.33 Obstructive sleep apnea (adult) (pediatric) (principal); G47.34 Idiopathic sleep related nonobstructive alveolar hypoventilation; E66.09 Other obesity due to excess calories
CPT/HCPCS: 99213

== ENCOUNTER → 2023-01-13 10:17 | Outpatient (BNVA) | payer OTHER, SELFPAY | PROVIDERS: PCP Physician Assistant; Visit Provider Internal Medicine | DX: G47.33 Obstructive sleep apnea (adult) (pediatric) (principal); G47.34 Idiopathic sleep related nonobstructive alveolar hypoventilation; E66.09 Other obesity due to excess calories; Z68.36 Body mass index [BMI] 36.0-36.9, adult | CPT/HCPCS: 99212 ==

== ENCOUNTER 2023-01-20 09:09 | Outpatient (REF) | payer OTHER, SELFPAY ==
--- NOTE | 2023-01-20 09:11 | EMG_ITS ---
Please see scanned EMG / Nerve Conduction Report. MTDD
== END 2023-01-20 09:10 | disposition home or self-care (01) ==
LOC: HO.NEURO 09:09
PROVIDERS: Visit Provider Physician Assistant
DX: R20.2 Paresthesia of skin (principal)
CPT/HCPCS: 95885; 95913

== ENCOUNTER 2023-03-03 10:08 | Outpatient (AMB) | payer OTHER, SELFPAY ==
[2023-03-03 10:19] VITALS: BMI 37.1
--- NOTE | 2023-03-03 10:19 | A.OFFVIS_ITS ---
Intake VS Expanded 03/03/23 10:19 03/09/23 11:21 Height 6 ft 2 in 6 ft 2 in Weight 288 lb 12.889 oz 289 lb BMI 37.1 37.1 Intake Visit Reasons: Nutrition Allergies metoprolol [METOPROLOL] Allergy (Unknown, Verified 03/03/23 13:31) UNKNOWN HPI Nutrition Presentation Details Pt presents for MNT for T2DM. Pt was referred by primary care provider. Eri Wil AQQ-Xliaxbx-Dt.Jeor Equation Height 6 ft 2 in Weight 289 lb Resting Metabolic Rate 2223.64 Calculated Activity Level Sedentary Calories Needed to Maintain Weight 2668.37 Diagnosis Nutrition problem #1 food nutri know defi As related to (etiology) #1 diagnosis As evidenced by (sign/symptom) #1 no prior educ - nutri rec Monitoring/Goals Nutrition problem monitoring level of knowledge/skill Nutrition goal/outcome list 3 diab diet goals and list 3 high fiber foods Outcome progress verbalized understanding Learning/Education Readiness to learn good Stages of change action Educational materials provided Yes (meal planning) Most Recent Diabetes Results: Cholesterol 93 mg/dL (<200) 12/25/22 HDL Cholesterol 33 mg/dL (>40) L 12/25/22 Triglycerides 79 mg/dL (<150) 12/25/22 Creatinine 1.16 mg/dL (0.5-1.4) 12/25/22 Blood Urea Nitrogen 15 mg/dL (9-16) 12/25/22 Sodium 137 mmol/L (135-145) 12/25/22 Potassium 4.0 mmol/L (3.3-5.1) 12/25/22 Chloride 106 mmol/L (96-108) 12/25/22 Carbon Dioxide 25 mmol/L (22-29) 12/25/22 Calcium 9.0 mg/dL (8.4-10.2) 12/25/22 AST 14 U/L (5-37) 12/25/22 ALT 22 U/L (0-40) 12/25/22 Total Protein 7.4 g/dL (6.5-8.0) 12/25/22 Albumin 4.2 g/dL (3.5-5.0) 12/25/22 REPLACED BY [facility] Medical History Nocturnal hypoxemia Infection of penis History of torn meniscus of right knee CAD (coronary artery disease) Type 2 diabetes mellitus with hyperglycemia, with long-term current use of insulin Type 2 diabetes mellitus with diabetic polyneuropathy Essential hypertension Hyperlipidemia LDL goal <70 Obesity due to excess calories Surgical History Hx of cardiac catheterization History of lateral meniscus repair of right knee Family History Father No problems noted. Mother No problems noted. Son Diabetes mellitus type 1 Household Members: Family Housing: Apartment Alcohol intake: current Alcohol intake frequency: does not drink Patient Tobacco Use Status: Never used Tobacco e-Cigarette/Vaping Use: Never Used Second Hand Smoke Exposure: No service: No Current occupational status: unemployed Cognitive needs: No Hearing needs: No Vision needs: Yes (Glasses) Assessment & Plan Assessment & Plan (1) Type 2 diabetes mellitus with diabetic polyneuropathy: Code(s): E11.42 - Type 2 diabetes mellitus with diabetic polyneuropathy Plan: wt: 131 kg (02/2023) Est kcal needs as per MSJ: 2700 (40% carb, 30% protein/fat) Est fluid needs as per 25-30 ml/d: 3275- 3930 Est prot per day as per 1 g/kg bw: 131 Recommend fiber intake : 8-10 g per day and gradually increase to 25-28 g per day for women and 35-38 g for men or as tolerated Recommend sodium intake per day : less than 2000 mg Educated patient on: ( R = reviewed V = verbalizes understanding N/R = needs review N/A = not applicable * Food sources of carbohydrate, adequate serving sizes and its role in various health conditions: R * Differences between complex carbohydrates a simple carbohydrates, role of fiber in diet: R * Differences between types of fats and role in diet (mono on saturated fat fatty acids, saturated fatty acids, trans fats): N R * Food sources of sodium in salt and healthy modifications for heart health in kidney health: NR * Vitamins and minerals: NR * Healthy plate method concept: R * Physical activity: Benefits a precaution: NR * Hypoglycemia protocol (rule of 15): R * Dietary prevention of Hyperglycemia: R * Blood glucose goal as per ADA guidelines : R, monitor blood sugars 4 times a day, fasting, pre meals and 2hours after a meal Medications: Discontinued omeprazole Discontinued Reason: Doctor's Order 20 mg PO DAILY 15 days 15 caps 3RF K21.9 - Gastro-esophageal reflux disease without esophagitis Patient Instructions: Follow healthy plate method, reduce total carbohydrate to 75-90 g at meal, choosing high fiber sources of foods (legumes, whole grains, vegetables, fruits) monitor your blood sugar fasting, pre meals and 2 hours after a meal Coding Level of Care Code Nutr Indiv Intake (58302) Diagnoses Type 2 diabetes mellitus with diabetic polyneuropathy E11.42 Time Spent (min) 30
[2023-03-09 11:21] VITALS: BMI 37.1
== END 2023-03-03 11:07 | disposition home or self-care (01) ==
PROVIDERS: PCP Physician Assistant; Visit Provider Dietitian, Registered
DX: E11.42 Type 2 diabetes mellitus with diabetic polyneuropathy (principal)

== ENCOUNTER → 2023-03-03 10:08 | Outpatient (BNVA) | payer OTHER, SELFPAY | PROVIDERS: PCP Physician Assistant; Visit Provider Dietitian, Registered | DX: I25.118 Atherosclerotic heart disease of native coronary artery with other forms of angina pectoris (principal); I25.5 Ischemic cardiomyopathy; I10 Essential (primary) hypertension; E11.42 Type 2 diabetes mellitus with diabetic polyneuropathy; E11.65 Type 2 diabetes mellitus with hyperglycemia; E66.09 Other obesity due to excess calories; G47.33 Obstructive sleep apnea (adult) (pediatric); G47.34 Idiopathic sleep related nonobstructive alveolar hypoventilation; Z68.36 Body mass index [BMI] 36.0-36.9, adult; Z79.85 Long-term (current) use of injectable non-insulin antidiabetic drugs; Z99.89 Dependence on other enabling machines and devices; Z71.3 Dietary counseling and surveillance | CPT/HCPCS: 97802; 99212 ==

== ENCOUNTER 2023-03-03 13:07 | Outpatient (AMB) | payer OTHER, SELFPAY ==
--- NOTE | 2023-03-03 13:14 | A.OFFVIS_ITS ---
Intake Vital Signs 03/03/23 13:16 Height 6 ft 2 in Weight 286 lb BMI 36.7 BP 110/70 Blood Pressure Location Lt brachial Position Sitting Pulse 95 Pulse Source Pulse Oximeter Pulse Oximetry (%) 98 Oxygen Delivery Method Room Air Intake Visit Reasons: Sleep Study Follow Up Intake Note: pt is here for follow up and is using his machine but it is not sending his transmission. But he feels better, but is taking much better care of himself now. 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 Allergies metoprolol [METOPROLOL] Allergy (Unknown, Verified 03/03/23 13:31) UNKNOWN Medication List - Last Reconciled 03/03/23 by Amalia Beck MD aspirin (Adult Low Dose Aspirin) 81 mg PO DAILY atorvastatin 80 mg PO BEDTIME blood sugar diagnostic (FreeStyle Lite Strips) As directed three times a day blood-glucose meter (FreeStyle Lite Meter kit) As directed to test 3 times per day carvedilol 6.25 mg (2 x 3.125 mg) PO BID 90 days dulaglutide (Trulicity) 3 mg (0.5 mL) subcut QWEEK 4 weeks ezetimibe 10 mg PO DAILY insulin glargine (Lantus Solostar U-100 Insulin) 45 units (0.45 mL) subcut BID lancets (FreeStyle Lancets) As directed three time a day omeprazole 20 mg PO DAILY 15 days pen needle, diabetic As directed pen needle, diabetic (Comfort EZ Pen [place]) TWICE A DAY sacubitril-valsartan 24-26 mg 1 tab PO BID 90 days sildenafil (Viagra) 100 mg PO DAILY PRN 90 days spironolactone 25 mg PO DAILY ticagrelor 90 mg PO BID 90 days Do you need a note to return to daycare/school/sports/work: No HPI Sleep Study Follow Up HPI Details This 52 years old gentleman is here for follow-up for his sleep apnea. Since his last visit he has been using his CPAP very regularly. Sleeps good and wakes up much more refreshed. He is more energetic and is trying to control his diet much better than before. Has lost a few lb of weight. His machine is not set up for transmitting the compliance data. He has good work with the DME supplier and see if that can be set up. Because but according to his statement he is very compliant and benefiting. HE HAS ALSO QUIT SMOKING AND NOW HE DOES NOT HAVE ANY COUGH OR WHEEZING. [facility] Medical History Nocturnal hypoxemia Infection of penis History of torn meniscus of right knee CAD (coronary artery disease) Type 2 diabetes mellitus with hyperglycemia, with long-term current use of insulin Type 2 diabetes mellitus with diabetic polyneuropathy Essential hypertension Hyperlipidemia LDL goal <70 Obesity due to excess calories Surgical History Hx of cardiac catheterization History of lateral meniscus repair of right knee Family History Father No problems noted. Mother No problems noted. Son Diabetes mellitus type 1 Social History Household Members: Family Housing: Apartment Alcohol intake: current Alcohol intake frequency: does not drink Patient Tobacco Use Status: Never used Tobacco e-Cigarette/Vaping Use: Never Used Second Hand Smoke Exposure: No service: No Current occupational status: unemployed Cognitive needs: No Hearing needs: No Vision needs: Yes (Glasses) Review of Systems Const All systems reviewed & are unremarkable except as noted in HPI and below Eyes Reports no additional complaints ENT Reports no additional complaints Card Denies chest pain (Status post cardiac catheterization, no chest pain at present), Denies leg edema and Reports dyspnea Resp Reports no additional complaints and Reports dyspnea GI Reports no additional complaints Reports no additional complaints Musc Reports no additional complaints Skin/Breast Reports system reviewed and no additional complaints, except as documented Neuro Reports no additional complaints Physical Exam Vital Signs: Last Vital Signs Pulse 95 03/03/23 13:16 BP 110/70 03/03/23 13:16 Pulse Ox 98 03/03/23 13:16 Oxygen Delivery Method Room Air 03/03/23 13:16 BMI result Body Mass Index 36.7 Const Other: This gentleman is tall and moderately obese, with a round face. General: comfortable, no acute distress, alert and awake Orientation/consciousness: patient oriented x3 HEENT Other: He has a round face, large neck, and narrow oropharynx, Mallampati class 4. Head: Yes normal to inspection General nose exam: No nasal polyps present and No nasal discharge present Face and sinus: Yes sinuses nontender Mouth: oropharynx abnormals (Crowded and narrow Mallampati class 4) Throat: Yes posterior oropharynx normal Eyes General: appearance normal, both eyes and all related structures Neck Neck: Yes normal visual inspection, Yes no lymphadenopathy, Yes trachea midline, Yes no JVD and Yes other (Neck size 18-1/2 inch) Thyroid: Thyroid normal Chest Chest palpation & inspection: normal inspection of the chest, normal palpation of entire chest wall and no tenderness Resp Effort & Inspection: normal respiratory effort Auscultation: clear to auscultation bilaterally, no crackles and no wheezes Cardio Palpation: normal PMI Rate: regular rate Rhythm: regular rhythm Heart sounds: no gallops and no murmurs Peripheral pulses: Peripheral pulses 2+ throughout GI Palpation (GI): Soft to palpation, nontender, No hepatosplenomegaly present, no masses and Other GI palpation findings present (Abdomen is obese and slightly protuberant) Auscultation: normal bowel sounds Back/Spine/Pelvis Thoracic/Lumbar Spine: thoracic and lumbar spine normal to inspection Skin General skin exam: no rashes or lesions noted Neuro General: patient oriented x3 and no focal motor deficits Cranial nerves: Yes CN's II-XII intact bilaterally Extrem General: Yes normal to inspection, Yes no clubbing, cyanosis or edema and Yes no calf tenderness Psych Appearance: grossly normal and well kempt Speech and movement: Normal speech and movement present Assessment & Plan Assessment & Plan (1) Obstructive sleep apnea: Comment: THIS GENTLEMAN HAS LONGSTANDING HISTORY OF OBSTRUCTIVE SLEEP APNEA, SINCE LAST VISIT 2 MONTHS AGO, HE HAS BEEN USING CPAP VERY REGULARLY EVERY NIGHT. NOW HE HIMSELF REALIZES THE BENEFIT OF USING THE CPAP, CLAIMING THAT HIS SLEEP IS MUCH BETTER AND HE WAKES MUCH MORE REFRESHED. ( CPAP, ,FULLFACE MASK PRESSURE 15 CM ) COMPLIANCE DATA NOT AVAILABLE, HIS CPAP DEVICE NEEDS TO BE SET UP FOR TRANSMITTING THE COMPLIANCE DATA. Code(s): G47.33 - Obstructive sleep apnea (adult) (pediatric) (2) Nocturnal hypoxemia: Comment: HE DID HAVE NOCTURNAL HYPOXEMIA ALONG WITH OBSTRUCTIVE SLEEP APNEA. BUT WITH CPAP TITRATION AND A PRESSURE OF 12 CM THE HYPOXEMIA WAS COMPLETELY RESOLVED. Code(s): G47.34 - Idiopathic sleep related nonobstructive alveolar hypoventilation Coding Level of Care Code Est Pt Level 3 (57368) Diagnoses Obstructive sleep apnea G47.33 Nocturnal hypoxemia G47.34
[2023-03-03 13:16] VITALS: BP 110/70; PULSE 95; O2SAT 98; BMI 36.7
== END 2023-03-03 13:32 | disposition home or self-care (01) ==
PROVIDERS: PCP Physician Assistant; Visit Provider Internal Medicine
DX: G47.33 Obstructive sleep apnea (adult) (pediatric) (principal); G47.34 Idiopathic sleep related nonobstructive alveolar hypoventilation
CPT/HCPCS: 99213

== ENCOUNTER 2023-03-03 13:34 | Outpatient (AMB) | payer OTHER, SELFPAY ==
[2023-03-03 13:50] VITALS: BP 118/76; PULSE 92; BMI 36.5
--- NOTE | 2023-03-03 13:50 | A.OFFVIS_ITS ---
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: No Allergies metoprolol [METOPROLOL] Allergy (Unknown, Verified 03/03/23 13:31) UNKNOWN Medication List - Last Reconciled 03/03/23 by Reggie Guerin MD aspirin (Adult Low Dose Aspirin) 81 mg PO DAILY atorvastatin 80 mg PO BEDTIME blood sugar diagnostic (FreeStyle Lite Strips) As directed three times a day blood-glucose meter (FreeStyle Lite Meter kit) As directed to test 3 times per day carvedilol 3.125 mg PO BID dulaglutide (Trulicity) 3 mg (0.5 mL) subcut QWEEK 4 weeks ezetimibe 10 mg PO DAILY insulin glargine (Lantus Solostar U-100 Insulin) 45 units (0.45 mL) subcut BID lancets (FreeStyle Lancets) As directed three time a day omeprazole 20 mg PO DAILY 15 days pen needle, diabetic As directed pen needle, diabetic (Comfort EZ Pen [place]) TWICE A DAY sacubitril-valsartan 24-26 mg 1 tab PO BID 90 days sildenafil (Viagra) 100 mg PO DAILY PRN 90 days spironolactone 25 mg PO DAILY ticagrelor 90 mg PO BID 90 days HPI HPI Comments History of Present Illness Details Pleasant 52-year-old gentleman who had anterior wall MO while he was in [place] 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 Based on echocardiography performed in September 2022 his ejection fraction is 35- 40%. He has been on guideline directed medical therapy. He has been doing well. Clinically euvolemic and asymptomatic at this point. No anginal symptoms. No bleeding concerns with medications that he is using regularly. He is taking Trulicity. He is currently not on Jardiance or Farxiga. [facility] Medical History Nocturnal hypoxemia Infection of penis History of torn meniscus of right knee CAD (coronary artery disease) Type 2 diabetes mellitus with hyperglycemia, with long-term current use of insulin Type 2 diabetes mellitus with diabetic polyneuropathy Essential hypertension Hyperlipidemia LDL goal <70 Obesity due to excess calories Surgical History Hx of cardiac catheterization History of lateral meniscus repair of right knee Family History Father No problems noted. Mother No problems noted. Son Diabetes mellitus type 1 Social History Household Members: Family Housing: Apartment Alcohol intake: current Alcohol intake frequency: does not drink Patient Tobacco Use Status: Never used Tobacco e-Cigarette/Vaping Use: Never Used Second Hand Smoke Exposure: No service: No Current occupational status: unemployed Cognitive needs: No Hearing needs: No Vision needs: Yes (Glasses) Review of Systems Const Denies chills, Denies fatigue, Denies fever(s), Denies frequent falls, Denies weakness, Denies weight gain and Denies weight loss ENT Denies dizziness Card Denies chest pain, Denies leg edema, Denies lightheadedness, Denies palpitations, Denies dyspnea, Denies dyspnea on exertion, Denies orthopnea and Denies other (loss of consciousness) Resp Denies cough, Denies dyspnea and Denies dyspnea on exertion GI Denies hematochezia and Denies change in stool character Musc Denies abnormal gait, Denies muscle weakness, Denies numbness, Denies radiating pain into limb and Denies tingling Neuro Denies abnormal gait, Denies dizziness, Denies frequent falls, Denies numbness, Denies tingling and Denies weakness Endo Denies fatigue and Denies palpitations Physical Exam Vital Signs: Last Vital Signs Pulse 92 03/03/23 13:50 BP 118/76 03/03/23 13:50 BMI result Body Mass Index 36.5 GENERAL APPEARANCE: in no acute distress, pleasant. NECK: no carotid bruit, no jugular venous distention. SKIN: no suspicious lesions, warm and dry. HEART: no murmurs, regular rate and rhythm. LUNGS: clear to auscultation bilaterally. ABDOMEN: soft, nontender. EXTREMITIES: no edema. PERIPHERAL PULSES: equal. NEUROLOGIC: No gross deficits, AAO X 3 Assessment & Plan Assessment & Plan (1) Essential hypertension: Code(s): I10 - Essential (primary) hypertension (2) CAD (coronary artery disease): Code(s): I25.10 - Atherosclerotic heart disease of [place] coronary artery without angina pectoris Qualifiers: Coronary Disease-Associated Artery/Lesion type: [place] artery [place] vs. transplanted heart: [place] heart Associated angina: with stable angina Qualified Code(s): I25.118 - Atherosclerotic heart disease of [place] coronary artery with other forms of angina pectoris (3) Ischemic cardiomyopathy: Code(s): I25.5 - Ischemic cardiomyopathy Plan Pleasant 52-year-old gentleman who is here for follow-up. Blood pressure control is good. He has ischemic cardiomyopathy with EF of 35-40%. He had PCI performed in September 2022 when he presented with anterior wall MO again. He is on aspirin and ticagrelor. The should be continued at least for 1 year. After that I will favor Plavix monotherapy. Will discuss with Medicine whether adding Farxiga or Jardiance with Trulicity is possible. That would be helpful for his cardiomyopathy. Will repeat echocardiography and see him back in few months. If ejection fraction is 30-35% then he needs primary prevention ICD. Thank you for allowing me to participate in the care of your patient. Please feel free to contact me if you have any questions. Orders: Orders CA echo transthoracic complete Today I25.5 - Ischemic cardiomyopathy Medications: Changed From carvedilol must administer with a meal/food 6.25 mg (2 x 3.125 mg) PO BID 90 days 360 tabs 1RF I25.5 - Ischemic cardiomyopathy To carvedilol must administer with a meal/food 3.125 mg PO BID I25.5 - Ischemic cardiomyopathy Coding Level of Care Code Est Pt Level 4 (43555) Diagnoses Essential hypertension I10 Coronary artery disease of [place] artery of [place] heart with stable angina pectoris I25.118 Coronary Disease-Associated Artery/Lesion type: [place] artery [place] vs. transplanted heart: [place] heart Associated angina: with stable angina Ischemic cardiomyopathy I25.5
== END 2023-03-03 14:30 | disposition home or self-care (01) ==
PROVIDERS: PCP Internal Medicine; Visit Provider Internal Medicine Cardiovascular Disease
DX: I10 Essential (primary) hypertension (principal); I25.118 Atherosclerotic heart disease of native coronary artery with other forms of angina pectoris; I25.5 Ischemic cardiomyopathy
CPT/HCPCS: 99214

== ENCOUNTER 2023-06-22 10:52 | Outpatient (REF) | payer OTHER, SELFPAY ==
[2023-06-22 11:55] LABS: Hematocrit 43.5 % (42.0-52.0); Hemoglobin 14.8 g/dl (14.0-18.0); Mean Corpuscular Hemoglobin 28.3 pg (27.0-33.0); Mean Corpuscular Volume 83.2 fL (80.0-98.0); Mean Platelet Volume 9.3 fL (9.4-12.4); Platelet Count 218 X10*3/uL (160-400); Red Blood Count 5.23 X10*6/uL (4.60-5.80); Red Cell Distribution Width 13.3 % (11.0-16.0); White Blood Count 6.5 X10*3/uL (4.8-10.8)
[2023-06-22 12:33] LABS: Alanine Aminotransferase 19 U/L (0-40); Albumin Level 4.3 g/dL (3.5-5.0); Alkaline Phosphatase 88 U/L (39-117); Anion Gap 10 (12-20); Aspartate Amino Transferase 20 U/L (5-37); Bilirubin Total 0.7 mg/dL (0.0-1.0); Blood Urea Nitrogen 23 mg/dL (9-16); Calcium 9.3 mg/dL (8.4-10.2); Carbon Dioxide 24 mmol/L (22-29); Chloride 107 mmol/L (96-108); Cholesterol 90 mg/dL (<200); Estimated Glomerular Filt Rate > 60; Glucose Fasting 113 mg/dL (60-99); HDL Cholesterol 34 mg/dL (>40); LDL Cholesterol Calculated 47 mg/dL (<100); Potassium 3.6 mmol/L (3.3-5.1); Sodium 137 mmol/L (135-145); Total Protein 7.8 g/dL (6.5-8.0); Triglycerides 47 mg/dL (<150)
== END 2023-06-22 10:53 | disposition home or self-care (01) ==
LOC: HO.LAB 10:52
PROVIDERS: Visit Provider Physician Assistant
DX: I25.118 Atherosclerotic heart disease of native coronary artery with other forms of angina pectoris (principal); I10 Essential (primary) hypertension; E78.5 Hyperlipidemia, unspecified; E11.42 Type 2 diabetes mellitus with diabetic polyneuropathy
CPT/HCPCS: 36415; 80053; 80061; 85027

== ENCOUNTER 2023-06-22 13:53 | Outpatient (AMB) | payer OTHER, SELFPAY ==
[2023-06-22 14:00] VITALS: BP 124/76; PULSE 80; O2SAT 99; BMI 35.7
--- NOTE | 2023-06-22 14:00 | MHC.PC.OV ---
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 Accompanied by: Self / Same As Patient Allergies metoprolol [METOPROLOL] Allergy (Unknown, Verified 06/22/23 14:25) UNKNOWN Medication List - Last Reconciled 06/22/23 by Will De La Torre PA-C aspirin (Adult Low Dose Aspirin) 81 mg PO DAILY atorvastatin 80 mg PO BEDTIME blood sugar diagnostic (FreeStyle Lite Strips) As directed three times a day blood-glucose meter (FreeStyle Lite Meter kit) As directed to test 3 times per day carvedilol 3.125 mg PO BID dulaglutide (Trulicity) 3 mg (0.5 mL) subcut QWEEK 4 weeks empagliflozin (Jardiance) 10 mg PO DAILY 90 days ezetimibe 10 mg PO DAILY insulin glargine (Lantus Solostar U-100 Insulin) 45 units (0.45 mL) subcut BID lancets (FreeStyle Lancets) As directed three time a day omeprazole 40 mg PO DAILY 30 days pen needle, diabetic As directed pen needle, diabetic (Comfort EZ Pen [place]) TWICE A DAY sacubitril-valsartan 24-26 mg 1 tab PO BID 90 days sildenafil (Viagra) 100 mg PO DAILY PRN 90 days spironolactone 25 mg PO DAILY ticagrelor 90 mg PO BID 90 days Tobacco use date assessed: 06/22/23 Dental Screening Dental Screen Date: 06/22/23 Did you have a dental visit in the last 12 months?: Yes Did you have a dental problem in the last 6 months where you did not have access to dental care?: No Was dental information given to patient?: Patient has dentist HPI F/U- CAD/ DMII HPI Details Patient is a 52-year-old male here today for a follow-up visit. Patient has a past medical history significant for type 2 diabetes, coronary artery disease with stent x3, ischemic cardiomyopathy, hypertension, hyperlipidemia, morbid obesity, obstructive sleep apnea. Concerns--> continues to have bilateral hand weakness, has gotten EMG testing of his upper extremities that did show mild median neuropathy. He is willing to do OT and be referred to orthopedics . Coronary artery disease: Recently had stents placed in his coronary arteries in 2022. Continues to follow cardiology. Also does have heart failure and does managed with spironolactone. His heart failure seems well compensated and has lost a few lb since last office visit. .. Type 2 diabetes: Today's A1c is 6.8. Patient's most recent fasting blood sugar much improved.. He continues on Trulicity 3 mg and long-acting insulin 45 units b.i.d. . Has been working on following a diabetic diet since his cardiac stent placement. PLAN: Will try to set him up with a continues glucose monitor for better glucose control/monitoring for any hypoglycemia.. .. Obstructive sleep apnea ( severe): Followed by pulmonology ( Dr Mckeon). Tries to be compliant with daily use of his CPAP machine though does not like his mask.--> reports recently traveling and his blockage was lost with his CPAP machine and glucometer. Would like a new script for CPAP machine. Laboratory Tests 07/29/22 07/29/22 12/25/22 11:26 11:26 08:53 RBC Hgb 13.7 L 13.7 L Creatinine Fasting Glucose Hemoglobin A1c % 11.7 Cholesterol LDL Cholesterol, C alc Total Testosterone 12/25/22 12/25/22 12/25/22 08:53 08:53 08:53 RBC 4.85 Hgb Creatinine Fasting Glucose 243 H Hemoglobin A1c % Cholesterol LDL Cholesterol, C alc 45 Total Testosterone 12/25/22 06/22/23 06/22/23 09:11 11:10 11:10 RBC 5.23 Hgb 14.8 Creatinine 1.03 Fasting Glucose 113 H Hemoglobin A1c % Cholesterol 90 LDL Cholesterol, C alc 47 Total Testosterone 388 [facility] History Nocturnal hypoxemia Infection of penis History of torn meniscus of right knee CAD (coronary artery disease) Type 2 diabetes mellitus with hyperglycemia, with long-term current use of insulin Type 2 diabetes mellitus with diabetic polyneuropathy Essential hypertension Hyperlipidemia LDL goal <70 Obesity due to excess calories Surgical History Hx of cardiac catheterization History of lateral meniscus repair of right knee Family History Father No problems noted. Mother No problems noted. Son Diabetes mellitus type 1 Social History Household Members: Family Housing: Apartment Alcohol intake: current Alcohol intake frequency: does not drink Patient Tobacco Use Status: Never used Tobacco e-Cigarette/Vaping Use: Never Used Second Hand Smoke Exposure: No service: No Current occupational status: unemployed Cognitive needs: No Hearing needs: No Vision needs: Yes (Glasses) Questionnaire Thrive Questionnaire Date Thrive assessed: 07/29/22 LLOYD-7 AMB Questionnaire LLOYD-7 Date LLOYD - 7 assessed: 07/29/22 Source: Developed by Drs. David Celis, Jazmin Christensen, Clif Oconnell and colleagues, with an educational keyanna from [employer]. Review of Systems Const Denies headache(s) Eyes Denies loss of vision ENT Denies vertigo, Denies dizziness, Denies headache(s) and Denies sore throat Card Denies chest pain, Denies leg edema and Denies lightheadedness Resp Denies cough, Denies hemoptysis and Denies wheezing GI Denies abdominal pain, Denies melena, Denies constipation, Denies diarrhea and Denies vomiting Denies dysuria, Denies urinary frequency and Denies urinary urgency Musc Denies arthralgias, Denies joint swelling, Denies numbness and Denies tingling Neuro Denies Abnormal speech present, Denies behavioral changes, Denies vertigo, Denies dizziness, Denies headache(s), Denies loss of vision, Denies memory loss, Denies numbness and Denies tingling Psych Denies anxiety, Denies behavioral changes, Denies depression, Denies memory loss and Denies panic attacks Timmy/Lymph Denies easy bleeding and Denies easy bruising Aller/Immun Denies wheezing Physical exam (Primary Care) Vital Signs: Last Vital Signs Pulse 80 06/22/23 14:00 BP 124/76 06/22/23 14:00 Pulse Ox 99 06/22/23 14:00 Oxygen Delivery Method Room Air 06/22/23 14:00 BMI result Body Mass Index 35.7 BMI Assessment/Plan discussion: High Tobacco/Smoking Status: Tobacco use Status Tobacco use date assessed 06/22/23 06/22/23 14:11 Patient Tobacco Use Status Never used Tobacco 06/22/23 14:00 e-Cigarette/Vaping Use Never Used 06/22/23 14:00 Thrive Assessment: Date of Thrive Assessment Date Thrive assessed 07/29/22 06/22/23 14:00 Const Other: Morbidly obese General: healthy appearing, no acute distress, alert and awake Nutritional Appearance: well nourished Orientation/consciousness: oriented to person, oriented to place and oriented to time HENMT Ears: TM's normal bilaterally General nose exam: Normal nasal mucous membranes and turbinates present Eyes Conjunctivae: conjunctivae normal Sclerae: sclerae normal Pupils: Equal, round and reactive pupils present Neck Neck: Yes no lymphadenopathy and Yes no JVD Thyroid: Thyroid normal Carotids: no bruits Resp Effort & Inspection: normal respiratory effort and not tachypneic Auscultation: no crackles, no rales, no rhonchi and no wheezes Cardio Rate: regular rate Rhythm: regular rhythm Heart sounds: no murmurs and normal S1 and S2 GI Palpation (GI): Soft to palpation, nontender, no hepatomegaly and no splenomegaly Auscultation: normal bowel sounds Skin General skin exam: no rashes or lesions noted and dry skin Neuro General: oriented to person, oriented to place and oriented to time Cranial nerves: Yes Equal, round and reactive pupils present Speech: No Abnormal speech present Gait exam (Neuro): Normal gait present Motor exam (neuro): no tremor noted Extrem Right upper extremity: full ROM Left upper extremity: full ROM Right lower extremity: full ROM; no edema Left lower extremity: full ROM; no edema Psych Mental Status: mental status grossly normal Speech and movement: Normal speech and movement present Affect: normal affect Attitude: cooperative Thought process: Normal thought process present Results AMB Hemoglobin A1c AMB Hemoglobin A1c 6.7 % Last Edit by LEONORA Lino on 06/22/23 14:48 Results Reviewed Results Reviewed: Laboratory Last Values Hgb A1c (Clinic) 6.7 % (4.0-6.0) H 06/22/23 14:01 Assessment and Plan Assessment & Plan (1) CAD (coronary artery disease): Code(s): I25.10 - Atherosclerotic heart disease of [place] coronary artery without angina pectoris Qualifiers: Associated angina: with stable angina Coronary Disease-Associated Artery/Lesion type: [place] artery [place] vs. transplanted heart: [place] heart Qualified Code(s): I25.118 - Atherosclerotic heart disease of [place] coronary artery with other forms of angina pectoris Plan: As per HPI patient is followed by Cardiology. Continues on high-dose statin therapy and dual anti-platelet therapy. Recently had stents placed in his coronary arteries in 2022. He otherwise denies any shortness of breath, chest pain, dizziness. Will continue to follow cardiology. Most recent lipid panel showing excellent control of his LDL (2) Type 2 diabetes mellitus with hyperglycemia, with long-term current use of insulin: Code(s): E11.65 - Type 2 diabetes mellitus with hyperglycemia; Z79.4 - shelter (current) use of insulin Plan: Patient's type 2 diabetes now controlled. Today's A1c is 6.8.. Since starting higher dose of Trulicity and being more consistent with a diabetic diet his A1c is much improved Will try to set him up with a continues glucose monitor for better glucose management and control. Goal A1c is to remain below 7. (3) Hyperlipidemia LDL goal <70: Code(s): E78.5 - Hyperlipidemia, unspecified Plan: Patient's most recent lipid panel showing excellent control of his total cholesterol and LDL.. Patient's goal LDL to be below 70 due to his cardiovascular risk. (4) Essential hypertension: Code(s): I10 - Essential (primary) hypertension Plan: Patient's blood pressure acceptable today in office. Will continue him on his current dose of antihypertensive medication with goal blood pressure to be below 140/90 (5) Erectile dysfunction associated with type 2 diabetes mellitus: Code(s): E11.69 - Type 2 diabetes mellitus with other specified complication; N52.1 - Erectile dysfunction due to diseases classified elsewhere Plan: Continues to follow urology. Does use high-dose sildenafil on a p.r.n. basis for sexual activity for (6) Paresthesia of upper extremity: Code(s): R20.2 - Paresthesia of skin Plan: As per HPI patient reports upper extremity numbness and tingling likely related to diabetic neuropathy in his upper extremities. Will send for EMG test as to confirm suspicions of the neuropathy in his upper extremities spring (7) Right median nerve neuropathy: Code(s): G56.11 - Other lesions of median nerve, right upper limb (8) Obstructive sleep apnea: Comment: THIS GENTLEMAN HAS LONGSTANDING HISTORY OF OBSTRUCTIVE SLEEP APNEA, SINCE LAST VISIT 2 MONTHS AGO, HE HAS BEEN USING CPAP VERY REGULARLY EVERY NIGHT. NOW HE HIMSELF REALIZES THE BENEFIT OF USING THE CPAP, CLAIMING THAT HIS SLEEP IS MUCH BETTER AND HE WAKES MUCH MORE REFRESHED. ( CPAP, ,FULLFACE MASK PRESSURE 15 CM ) COMPLIANCE DATA NOT AVAILABLE, HIS CPAP DEVICE NEEDS TO BE SET UP FOR TRANSMITTING THE COMPLIANCE DATA. Code(s): G47.33 - Obstructive sleep apnea (adult) (pediatric) Plan: As above Orders: Orders AMB Hemoglobin A1c 06/22/23 E11.42 - Type 2 diabetes mellitus with diabetic polyneuropathy OT Evaluation and Treatment 06/22/23 G56.11 - Other lesions of median nerve, right upper limb Lipid Panel 06/22/23 E78.5 - Hyperlipidemia, unspecified Microalbumin, Random (w Creat) 06/22/23 I10 - Essential (primary) hypertension Comprehensive [place]. Panel Fast 06/22/23 I10 - Essential (primary) hypertension Prostate Specific Antigen Scr 06/22/23 I10 - Essential (primary) hypertension, Z12.5 - Encounter for screening for malignant neoplasm of prostate Referrals Orthopedics Referral G56.11 - Other lesions of median nerve, right upper limb Medications: New blood-glucose sensor (FreeStyle Rod 3 Sensor device) As directed 1 ea 3RF E11.65 - Type 2 diabetes mellitus with hyperglycemia, Z79.4 - terminologist (current) use of insulin blood-glucose meter,continuous (FreeStyle Rod 3 [place]) As directed 1 ea 1RF E11.65 - Type 2 diabetes mellitus with hyperglycemia, Z79.4 - shelter (current) use of insulin CPAP (CPAP Machine/Device) As directed 1 ea 0RF G47.33 - Obstructive sleep apnea (adult) (pediatric) Coding Level of Care Code Est Pt Level 4 (68900) Diagnoses Coronary artery disease of [place] artery of [place] heart with stable angina pectoris I25.118 Associated angina: with stable angina Coronary Disease-Associated Artery/Lesion type: [place] artery [place] vs. transplanted heart: [place] heart Type 2 diabetes mellitus with hyperglycemia, with long-term current use of insulin E11.65; Z79.4 Hyperlipidemia LDL goal <70 E78.5 Essential hypertension I10 Erectile dysfunction associated with type 2 diabetes mellitus E11.69; N52.1 Paresthesia of upper extremity R20.2 Right median nerve neuropathy G56.11 Obstructive sleep apnea G47.33
== END 2023-06-22 14:54 | disposition home or self-care (01) ==
PROVIDERS: PCP Physician Assistant; Visit Provider Physician Assistant
DX: E11.42 Type 2 diabetes mellitus with diabetic polyneuropathy (principal)
CPT/HCPCS: 83036; 99214

== ENCOUNTER 2023-06-24 08:03 | Outpatient (AMB) | payer OTHER, SELFPAY ==
[2023-06-24 08:20] VITALS: BP 120/62; PULSE 97; BMI 37.1
--- NOTE | 2023-06-24 08:20 | MHC.OFFVIS ---
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 Allergies metoprolol [METOPROLOL] Allergy (Unknown, Verified 06/24/23 08:22) UNKNOWN Medication List - Last Reconciled 06/24/23 by JAMESON Quinteros aspirin (Adult Low Dose Aspirin) 81 mg PO DAILY atorvastatin 80 mg PO BEDTIME blood sugar diagnostic (FreeStyle Lite Strips) As directed three times a day blood-glucose meter (FreeStyle Lite Meter kit) As directed to test 3 times per day blood-glucose meter,continuous (FreeStyle Rod 3 [place]) As directed blood-glucose sensor (FreeStyle Rod 3 Sensor device) As directed carvedilol 3.125 mg PO BID CPAP (CPAP Machine/Device) As directed dulaglutide (Trulicity) 3 mg (0.5 mL) subcut QWEEK 4 weeks empagliflozin (Jardiance) 10 mg PO DAILY 90 days ezetimibe 10 mg PO DAILY insulin glargine (Lantus Solostar U-100 Insulin) 45 units (0.45 mL) subcut BID lancets (FreeStyle Lancets) As directed three time a day omeprazole 40 mg PO DAILY 30 days pen needle, diabetic As directed pen needle, diabetic (Comfort EZ Pen [place]) TWICE A DAY sacubitril-valsartan 24-26 mg 1 tab PO BID 90 days sildenafil (Viagra) 100 mg PO DAILY PRN 90 days spironolactone 25 mg PO DAILY ticagrelor 90 mg PO BID 90 days HPI 3 mth pt wanted june HPI Details Jd is a 52-year-old male with past medical history of hypertension, hyperlipidemia, diabetes, CAD, prior anterior ID, recurrent anterior ID 07/2022 with severe in stent stenosis to the LAD, 3 MAYRA placed, ischemic cardiomyopathy who presents for follow-up. Today he reports that he has been doing well since his last visit in February. Has been improving his diabetic control and tells me that his hemoglobin A1c is down in the sixes. He walks routinely for exercise. He will get some shortness of breath if climbing over 1 flight of stairs. No chest discomfort at rest or with activity. No heart palpitations, lightheadedness, presyncope, syncope, PND, orthopnea or edema. Believes he has lost about 10 lb. Taking all meds as directed. [facility] Medical History Nocturnal hypoxemia Infection of penis History of torn meniscus of right knee CAD (coronary artery disease) Type 2 diabetes mellitus with hyperglycemia, with long-term current use of insulin Type 2 diabetes mellitus with diabetic polyneuropathy Essential hypertension Hyperlipidemia LDL goal <70 Obesity due to excess calories Surgical History Hx of cardiac catheterization History of lateral meniscus repair of right knee Family History Father No problems noted. Mother No problems noted. Son Diabetes mellitus type 1 Social History Household Members: Family Housing: Apartment Alcohol intake: current Alcohol intake frequency: does not drink Patient Tobacco Use Status: Never used Tobacco e-Cigarette/Vaping Use: Never Used Second Hand Smoke Exposure: No service: No Current occupational status: unemployed Cognitive needs: No Hearing needs: No Vision needs: Yes (Glasses) Review of Systems Const All systems reviewed & are unremarkable except as noted in HPI and below ENT Denies dizziness Card Denies chest pain, Denies chest pain at rest, Denies chest pain with activity, Denies rapid heart rate, Denies pedal edema, Denies edema, Denies leg edema, Denies lightheadedness, Denies palpitations, Denies dyspnea, Reports dyspnea on exertion and Denies orthopnea Resp Denies cough, Denies dyspnea and Reports dyspnea on exertion GI Denies hematochezia and Denies change in stool character Musc Denies abnormal gait, Denies limited range of motion, Denies muscle cramps, Denies muscle weakness, Denies numbness, Denies radiating pain into limb, Denies stiffness and Denies tingling Neuro Denies abnormal gait, Denies dizziness, Denies numbness and Denies tingling Endo Denies palpitations Physical Exam Vital Signs: BMI result Body Mass Index 37.1 Const General: cooperative, healthy appearing, comfortable and no acute distress Orientation/consciousness: patient oriented x3 Neck Neck: Yes normal visual inspection Resp Effort & Inspection: normal respiratory effort Auscultation: clear to auscultation bilaterally, no crackles, no rales, no rhonchi and no wheezes Cardio Jugular venous distension: no JVD Rate: regular rate Rhythm: regular rhythm Heart sounds: S1 normal heart sound present, S2 normal heart sound present, no murmurs and no rubs Neuro General: patient oriented x3 Extrem General: Yes normal to inspection and No no pedal edema Psych Appearance: grossly normal Mental Status: mental status grossly normal Speech and movement: Normal speech and movement present Assessment & Plan Assessment & Plan (1) CAD (coronary artery disease): Code(s): I25.10 - Atherosclerotic heart disease of [place] coronary artery without angina pectoris Qualifiers: Coronary Disease-Associated Artery/Lesion type: [place] artery [place] vs. transplanted heart: [place] heart Associated angina: with stable angina Qualified Code(s): I25.118 - Atherosclerotic heart disease of [place] coronary artery with other forms of angina pectoris Plan: History of anterior ID, MAYRA placed. Had recurrent anterior STEMI, 07/2022 with cardiac catheterization showing three-vessel coronary artery disease with severe in stent stenosis, 3 MAYRA placed. Residual ischemic cardiomyopathy with EF 35-40%. Today he reports no anginal sounding symptoms. Tells me he is working on weight loss and has his hemoglobin A1c down into the 6s. Encouraged to increase physical activity and continue to work on weight loss and diabetic control. Continue current med management including aspirin, Brilinta, atorvastatin, Zetia, carvedilol. Signs and symptoms of angina reviewed with him. Cardiology follow-up 4 months, sooner if needed. Anticipate coming off Brilinta and aspirin at that time and changing to Plavix. (2) S/P cardiac catheterization: Comment: 07/23/2022, anterior STEMI, mid LAD 95% stenosis, proximal LAD 95% stenosis, severe ISR, 1st diagonal 90% stenosis, left circumflex 70% stenosis, RCA mid 70% stenosis. Three drug-eluting stents placed to the LAD Code(s): Z98.890 - Other specified postprocedural states Plan: As above (3) Ischemic cardiomyopathy: Code(s): I25.5 - Ischemic cardiomyopathy Plan: Last echo done 09/17/2022 showing EF 35-40%. Echocardiogram done in 2021 also showed EF 35-40%. He is on appropriate med management for neurohormonal modulation including Entresto, carvedilol, Jardiance, Aldactone. Labs done 06/22/2023 show potassium 3.6, creatinine 1.03, fasting glucose 113. No signs of heart failure on examination. Continue carvedilol, Entresto, Jardiance and Aldactone for neurohormonal modulation. Signs and symptoms of heart failure reviewed with him. (4) Essential hypertension: Code(s): I10 - Essential (primary) hypertension Plan: Raymond blood pressure less than 130/85. Well controlled at this time. No medication changes made. (5) Hyperlipidemia LDL goal <70: Code(s): E78.5 - Hyperlipidemia, unspecified Plan: [place] LDL goal less than 70. Labs done on 06/22/2023 shows LDL 47. Continue high-dose atorvastatin and Zetia. (6) Type 2 diabetes mellitus with hyperglycemia, with long-term current use of insulin: Code(s): E11.65 - Type 2 diabetes mellitus with hyperglycemia; Z79.4 - longterm (current) use of insulin Plan: Hemoglobin A1c goal less than 7. Last level in our system 07/29/2022 shows hemoglobin A1c 11.7. Today patient states his most recent hemoglobin A1c was in the 6s, as done in his PCP office. Followed by his PCP. Plan Time spent on chart review, documentation, interview and assessment Coding Level of Care Code Est Pt Level 4 (81334) Diagnoses Coronary artery disease of [place] artery of [place] heart with stable angina pectoris I25.118 Coronary Disease-Associated Artery/Lesion type: [place] artery [place] vs. transplanted heart: [place] heart Associated angina: with stable angina S/P cardiac catheterization Z98.890 Ischemic cardiomyopathy I25.5 Essential hypertension I10 Hyperlipidemia LDL goal <70 E78.5 Type 2 diabetes mellitus with hyperglycemia, with long-term current use of insulin E11.65; Z79.4 Time Spent (min) 28
== END 2023-06-24 08:48 | disposition home or self-care (01) ==
PROVIDERS: PCP Physician Assistant; Visit Provider Nurse Practitioner Family
DX: I25.118 Atherosclerotic heart disease of native coronary artery with other forms of angina pectoris (principal); Z98.890 Other specified postprocedural states; I25.5 Ischemic cardiomyopathy; I10 Essential (primary) hypertension; E78.5 Hyperlipidemia, unspecified; E11.65 Type 2 diabetes mellitus with hyperglycemia; Z79.4 Long term (current) use of insulin
CPT/HCPCS: 99214

== ENCOUNTER → 2023-06-24 08:03 | Outpatient (BNVA) | payer OTHER, SELFPAY | PROVIDERS: PCP Physician Assistant; Visit Provider Nurse Practitioner Family | DX: G47.33 Obstructive sleep apnea (adult) (pediatric) (principal); G47.34 Idiopathic sleep related nonobstructive alveolar hypoventilation; E66.09 Other obesity due to excess calories; Z68.36 Body mass index [BMI] 36.0-36.9, adult; I25.118 Atherosclerotic heart disease of native coronary artery with other forms of angina pectoris; I25.5 Ischemic cardiomyopathy; I10 Essential (primary) hypertension; E78.5 Hyperlipidemia, unspecified; E11.65 Type 2 diabetes mellitus with hyperglycemia; Z79.4 Long term (current) use of insulin; Z98.890 Other specified postprocedural states | CPT/HCPCS: 99212 ==

== ENCOUNTER 2023-06-24 10:27 | Outpatient (AMB) | payer OTHER, SELFPAY ==
[2023-06-24 10:36] VITALS: BP 111/62; PULSE 93; O2SAT 96; BMI 36.2
--- NOTE | 2023-06-24 10:36 | A.OFFVIS_ITS ---
Intake Vital Signs 06/24/23 10:36 Height 6 ft 2 in Weight 282 lb BMI 36.2 BP 111/62 Blood Pressure Location Lt brachial Position Sitting Pulse 93 Pulse Source Doppler Pulse Oximetry (%) 96 Oxygen Delivery Method Room Air Intake Visit Reasons: Obstructive sleep apnea Intake Note: Patient is here for a follow up on CAT, patient stated he lost his CPAP machine while traveling and would like to know how to get a new machine Allergies metoprolol [METOPROLOL] Allergy (Unknown, Verified 06/24/23 10:50) UNKNOWN Medication List - Last Reconciled 06/24/23 by Amalia Beck MD aspirin (Adult Low Dose Aspirin) 81 mg PO DAILY atorvastatin 80 mg PO BEDTIME blood sugar diagnostic (FreeStyle Lite Strips) As directed three times a day blood-glucose meter (FreeStyle Lite Meter kit) As directed to test 3 times per day blood-glucose meter,continuous (FreeStyle Rod 3 [place]) As directed blood-glucose sensor (FreeStyle Rod 3 Sensor device) As directed carvedilol 3.125 mg PO BID CPAP (CPAP Machine/Device) As directed dulaglutide (Trulicity) 3 mg (0.5 mL) subcut QWEEK 4 weeks empagliflozin (Jardiance) 10 mg PO DAILY 90 days ezetimibe 10 mg PO DAILY insulin glargine (Lantus Solostar U-100 Insulin) 45 units (0.45 mL) subcut BID lancets (FreeStyle Lancets) As directed three time a day omeprazole 40 mg PO DAILY 30 days pen needle, diabetic As directed pen needle, diabetic (Comfort EZ Pen [place]) TWICE A DAY sacubitril-valsartan 24-26 mg 1 tab PO BID 90 days sildenafil (Viagra) 100 mg PO DAILY PRN 90 days spironolactone 25 mg PO DAILY ticagrelor 90 mg PO BID 90 days Do you need a note to return to daycare/school/sports/work: No HPI Obstructive sleep apnea HPI Details This 52 years old gentleman is here for follow-up. For his sleep apnea He was using CPAP with pressure of 15 cm, very regularly and sleeping much better. He claims that he was feeling more energetic, He is also working on weight reduction and has lost about 10 lb of weight. Unfortunately he lost his CPAP machine in his luggage while traveling back from [place] to [facility] He has not been able to get his luggage yet. So he can not use the CPAP and it is starting to wake up frequently during. The night He admits that when he was using CPAP he was feeling much better. [facility] Medical History Nocturnal hypoxemia Infection of penis History of torn meniscus of right knee CAD (coronary artery disease) Type 2 diabetes mellitus with hyperglycemia, with long-term current use of insulin Type 2 diabetes mellitus with diabetic polyneuropathy Essential hypertension Hyperlipidemia LDL goal <70 Obesity due to excess calories Surgical History Hx of cardiac catheterization History of lateral meniscus repair of right knee Family History Father No problems noted. Mother No problems noted. Son Diabetes mellitus type 1 Social History Household Members: Family Housing: Apartment Alcohol intake: current Alcohol intake frequency: does not drink Patient Tobacco Use Status: Never used Tobacco e-Cigarette/Vaping Use: Never Used Second Hand Smoke Exposure: No service: No Current occupational status: unemployed Cognitive needs: No Hearing needs: No Vision needs: Yes (Glasses) Review of Systems Const All systems reviewed & are unremarkable except as noted in HPI and below Eyes Reports no additional complaints ENT Reports no additional complaints Card Denies chest pain (Status post cardiac catheterization, no chest pain at present), Denies leg edema and Reports dyspnea Resp Reports no additional complaints and Reports dyspnea GI Reports no additional complaints Reports no additional complaints Musc Reports no additional complaints Skin/Breast Reports system reviewed and no additional complaints, except as documented Neuro Reports no additional complaints Physical Exam Vital Signs: Last Vital Signs Pulse 93 06/24/23 10:36 BP 111/62 06/24/23 10:36 Pulse Ox 96 06/24/23 10:36 Oxygen Delivery Method Room Air 06/24/23 10:36 BMI result Body Mass Index 36.2 Const Other: This gentleman is tall and moderately obese, with a round face. General: comfortable, no acute distress, alert and awake Orientation/consciousness: patient oriented x3 HEENT Other: He has a round face, large neck, and narrow oropharynx, Mallampati class 4. Head: Yes normal to inspection General nose exam: No nasal polyps present and No nasal discharge present Face and sinus: Yes sinuses nontender Mouth: oropharynx abnormals (Crowded and narrow Mallampati class 4) Throat: Yes posterior oropharynx normal Eyes General: appearance normal, both eyes and all related structures Neck Neck: Yes normal visual inspection, Yes no lymphadenopathy, Yes trachea midline, Yes no JVD and Yes other (Neck size 18-1/2 inch) Thyroid: Thyroid normal Chest Chest palpation & inspection: normal inspection of the chest, normal palpation of entire chest wall and no tenderness Resp Effort & Inspection: normal respiratory effort Auscultation: clear to auscultation bilaterally, no crackles and no wheezes Cardio Palpation: normal PMI Rate: regular rate Rhythm: regular rhythm Heart sounds: no gallops and no murmurs Peripheral pulses: Peripheral pulses 2+ throughout GI Palpation (GI): Soft to palpation, nontender, No hepatosplenomegaly present, no masses and Other GI palpation findings present (Abdomen is obese and slightly protuberant) Auscultation: normal bowel sounds Back/Spine/Pelvis Thoracic/Lumbar Spine: thoracic and lumbar spine normal to inspection Skin General skin exam: no rashes or lesions noted Neuro General: patient oriented x3 and no focal motor deficits Cranial nerves: Yes CN's II-XII intact bilaterally Extrem General: Yes normal to inspection, Yes no clubbing, cyanosis or edema and Yes no calf tenderness Psych Appearance: grossly normal and well kempt Speech and movement: Normal speech and movement present Assessment & Plan Assessment & Plan (1) Obesity due to excess calories: Comment: PATIENT REMAINS GROSSLY OBESE. BUT HAS LOST ABOUT 10 LBs OF WEIGHT, AND FEELS BETTER . Code(s): E66.09 - Other obesity due to excess calories Plan: COMMENDED FOR LOSING SOME WEIGHT AND IS ENCOURAGED TO KEEP ON LOSING MORE, BY CUTTING DOWN THE CALORIES INTAKE. (2) Obstructive sleep apnea: Comment: THIS GENTLEMAN HAS LONGSTANDING HISTORY OF OBSTRUCTIVE SLEEP APNEA, SINCE LAST VISIT 2 MONTHS AGO, HE HAS BEEN USING CPAP VERY REGULARLY EVERY NIGHT. HE FULLY REALIZES THE BENEFIT OF USING THE CPAP, CLAIMING THAT HIS SLEEP IS MUCH BETTER AND HE WAKES MUCH MORE REFRESHED. ( CPAP, ,FULLFACE MASK PRESSURE 15 CM ) LOST HIS CPAP DEVICE IN THE LUGGAGE, STILL WAITING. TO GET HIS LUGGAGE. Code(s): G47.33 - Obstructive sleep apnea (adult) (pediatric) Plan: HE IS ADVISE THAT SOON HE GETS HIS LUGGAGE HE SHOULD GET HIS CPAP DEVICE OUT AND START USING IT EVERY NIGHT. IF HE DOES NOT, GET HIS LUGGAGE HE WILL HAVE TO GET THE NEW CPAP DEVICE, WE WILL WORK WITH HIM AND THE DME SUPPLIER COMPANY. (3) Nocturnal hypoxemia: Comment: HE DID HAVE NOCTURNAL HYPOXEMIA ALONG WITH OBSTRUCTIVE SLEEP APNEA. BUT WITH CPAP TITRATION AND A PRESSURE OF 12 CM THE HYPOXEMIA WAS COMPLETELY RESOLVED. Code(s): G47.34 - Idiopathic sleep related nonobstructive alveolar hypoventilation Plan: DOES NOT NEED ANY OXYGEN SUPPLEMENT WITH CPAP. Coding Level of Care Code Est Pt Level 3 (23595) Diagnoses Obesity due to excess calories E66.09 Obstructive sleep apnea G47.33 Nocturnal hypoxemia G47.34
== END 2023-06-24 11:00 | disposition home or self-care (01) ==
PROVIDERS: PCP Physician Assistant; Visit Provider Internal Medicine
DX: E66.09 Other obesity due to excess calories (principal); G47.33 Obstructive sleep apnea (adult) (pediatric); G47.34 Idiopathic sleep related nonobstructive alveolar hypoventilation
CPT/HCPCS: 99213

== ENCOUNTER → 2023-07-22 12:58 | Outpatient (REF) | payer OTHER, SELFPAY ==
--- NOTE | 2023-07-22 14:25 | CA_ITS ---
Transthoracic Echocardiogram Patient (Last, First, Middle): Jd Li A Gender: Male Date of : 1970 Age: 53 Procedure Date: 07/22/2023 Procedure Type: Transthoracic Echocardiogram Location: OP Height: 187.96 cm Weight: 126.1 kg BSA: 2.50 m2 Heart Rate: bpm BP: 124 / 82 mmHg Surgical Endoscopist: DAISY Referring MD: Reggie Guerin MD Circuit Board Repair Technician: Nikolai Weiss MD Symptoms: I25.5 - Ischemic cardiomyopathy Study Quality: Technically Difficult, contrast ECG Rhythm: Sinus Conclusions: - 1. Moderately reduced LV ejection fraction of 35-40% with impaired relaxation filling pattern with underlying regional wall motion abnormality consistent with ischemic cardiomyopathy 2. Normal cardiac valve with the Doppler 3. Upper limits of normal ascending aortic size 4. No gross pericardial effusion Findings Procedure Information Contrast agent, definity, is being given per protocol without apparent complications. Left Ventricle Normal left ventricular cavity size. There is normal left ventricular wall thickness. The left ventricular systolic function is moderately decreased. The visually estimated ejection fraction is between 35-40%. Spectral Doppler is indicative of an impaired relaxation filling pattern. E/E prime ratio is between 8 and 15 consistent with indeterminate filling pressures. Wall Motion Rest Echo Findings The inferoseptal wall, the apical anterior, apical lateral, and mid anteroseptal segments are hypokinetic. The apex, apical inferior, and apical septum segments are akinetic. All other scored wall segments showed normal motion. Right Ventricle Normal right ventricular cavity size. Atria The left atrium is likely dilated. Interatrial shunt cannot be excluded. The right atrium was not well visualized. Aortic Valve The aortic valve structure and function is likely normal. There is no aortic valve stenosis. There is no aortic valve regurgitation. Mitral Valve Normal mitral valve structure and function. There is trace mitral valve regurgitation. There is no mitral valve stenosis. Pulmonic Valve The pulmonic valve is likely normal. Tricuspid Valve Likely normal tricuspid valve structure and function. Tricuspid regurgitation envelope is inadequate for calculation of right ventricular systolic pressure. Normal right atrial pressure. Great Vessels All visible segments of the aorta are normal in size. The pulmonary artery was not well visualized. Venous The inferior vena cava is normal in size and collapses greater than 50% with inspiration. Pericardium/Pleural There is no evidence of pericardial effusion. Prior Study Comparison No significant change compared to prior study dated: 09/17/2022. Measurements 2D Linear Measurements IVSd: 1.23 0.6-0.9/0.6-1.0 cm LVIDd: 5.08 3.9-5.3/4.2-5.9 cm LVIDd Index: 2.03 2.4-3.2/2.2-3.1 cm/m2 LVIDs: 4.16 2.0-3.6 cm LVPWd: 1.02 0.7-1.1 cm LA Diam: 4.20 2.7-3.8/3.0-4.0 cm LAIDs Index: 1.68 1.5-2.3 cm/m2 LV Mass: 273.25 67-162/88-224 g LV Mass Index: 109.30 43-95/49-115 g/m2 LVOT Diam: 2.10 3.0+(-)1.3 cm 2D Systolic Function EF 4C: 39.70 >55% EF 2C: 37.10 >55% EF BiP: 37.40 >55% Mitral Valve MV Pk E: 0.57 MV PK A: 0.74 MV Decel Time: 187.00 E/A: 0.80 E'Lateral: 5.33 E'Medial: 5.55 E/E' Med: 10.20 E/E' Lat: 10.60 PHT: 55.00 MVA PHT: 4.00 Decel [place]: 3.02 Aortic Valve AoV Pk Marek: 0.87 AoV Mn Marek: 0.63 AoV VTI: 0.16 AoV Pk Grad: 3.00 Aov Mn Grad: 2.00 TRIHSA Cont.VTI: 3.37 LVOT LVOT Pk Marek: 0.80 LVOT Mn Marek: 0.55 LVOT VTI: 0.16 LVOT Pk Grad: 3.00 LVOT Mn Grad: 1.00 LVOT Diam: 2.10 LVOT Area: 3.46 Diastolic Function MV Pk E: 0.57 MV Pk A: 0.74 E/A: 0.80 E'Medial: 5.55 E/E' Med: 10.20 E' Laterial: 5.33 E/E' Lat: 10.60 Right Ventricle TAPSE (mm): 20.90 TVS' Marek: 10.10 Tricuspid Valve RA Press: 8.00 Great Vessels Aorta Sinus of Valsalva: 4.44 2.0-3.[address] [place]: 3.12 1.7-3.4 cm Ao Asc: 3.50 2.1-3.4 cm Updated in Other Vendor System with Status of Final Nikolai Weiss MD electronically signed on 07/23/2023 2:20:14 PM with status of Final
== END ==
LOC: HO.CARD 12:58
PROVIDERS: PCP Physician Assistant; Visit Provider Internal Medicine Cardiovascular Disease
DX: I25.5 Ischemic cardiomyopathy (principal)
CPT/HCPCS: 93306; Q9957

== ENCOUNTER → 2023-07-22 14:25 | Outpatient (BNV) | payer OTHER, SELFPAY | PROVIDERS: PCP Physician Assistant; Visit Provider Internal Medicine Cardiovascular Disease | DX: I25.5 Ischemic cardiomyopathy (principal) | CPT/HCPCS: 93306 ==

== ENCOUNTER 2023-09-28 09:48 | Outpatient (AMB) | payer OTHER, SELFPAY ==
--- NOTE | 2023-09-28 09:52 | A.OFFVIS_ITS ---
Vital Signs 09/28/23 09:55 Height 6 ft 2 in Weight 282 lb BMI 36.2 Handedness Right Intake Visit Reasons: New Pt - B/L hand numbness, EMG done 01/20/23 Intake Note: Jd is a 53 year old right hand dominant male who presents today as a new patient for a evaluation of his bilateral hand numbness/tingling, EMG done on 01/20/23. Patient reports that his right hand is worse than the left. He expresses that his numbness in constant through out the day. He states that he is having pain on the dorsal aspect of the right hand, with numbness all over his fingers. numbness Patient would like to discuss having surgery vs other treatment options. Allergies metoprolol [METOPROLOL] Allergy (Unknown, Verified 09/28/23 09:54) UNKNOWN HPI HPI New Pt - B/L hand numbness, EMG done 01/20/23: Details: 53-year-old right hand dominant male who presents in the office today, as a new patient, for an evaluation of bilateral hand numbness. The patient was seen by Internal Medicine on 06/22/2023 with a complaint of bilateral hand weakness. EMG study was obtained. He was referred to occupational therapy. While in the office today the patient reports bilateral hand numbness and tingling. He states his right hand is worse than his left hand. He reports the numbness is constant throughout the day. He claims to have pain on the dorsal aspect of the right hand with numbness in all his digits. The patient is interested in discussing conservative versus surgical intervention. Patient has a significant medical history of diabetes mellitus. A1c on 06/22/2023 was 6.7. [facility] Medical History Nocturnal hypoxemia Infection of penis History of torn meniscus of right knee CAD (coronary artery disease) Type 2 diabetes mellitus with hyperglycemia, with long-term current use of insulin Type 2 diabetes mellitus with diabetic polyneuropathy Essential hypertension Hyperlipidemia LDL goal <70 Obesity due to excess calories Surgical History Hx of cardiac catheterization History of lateral meniscus repair of right knee Family History Father No problems noted. Mother No problems noted. Son Diabetes mellitus type 1 Social History Household Members: Family Housing: Apartment Alcohol intake: current Alcohol intake frequency: does not drink Patient Tobacco Use Status: Never used Tobacco e-Cigarette/Vaping Use: Never Used Second Hand Smoke Exposure: No service: No Current occupational status: unemployed Cognitive needs: No Hearing needs: No Vision needs: Yes (Glasses) Review of Systems Const All systems reviewed & are unremarkable except as noted in HPI and below Physical Exam Vital Signs: BMI result Body Mass Index 36.2 Const General: cooperative and no acute distress Orientation/consciousness: patient oriented x3 Resp Effort & Inspection: normal respiratory effort and able to speak in complete sentences Cardio Peripheral pulses: Peripheral pulses 2+ throughout Skin General skin exam: no rashes or lesions noted Neuro General: patient oriented x3 Extrem Other: Right hand: Normal to inspection. No ecchymosis, erythema, or edema. Able to perform full finger flexion, extension, abduction, adduction, and thumbs up without deficit. Flat okay sign and difficulty with finger cross. Able to make a closed fist with weakness. Positive Tinel's? at the carpal tunnel. Sensation intact. Capillary refill is brisk. Radial pulse intact. Assessment & Plan Assessment & Plan (1) Right carpal tunnel syndrome: Code(s): G56.01 - Carpal tunnel syndrome, right upper limb Category: Medical (2) Left carpal tunnel syndrome: Code(s): G56.02 - Carpal tunnel syndrome, left upper limb Category: Medical Plan Mr. Li is a 53-year-old right hand dominant male who presents in the office today, as a new patient, for an evaluation of bilateral hand numbness. The patient was seen by Internal Medicine on 06/22/2023 with a complaint of bilateral hand weakness. EMG study was obtained. He was referred to occupational therapy. While in the office today the patient reports bilateral hand numbness and tingling. He states his right hand is worse than his left hand. He reports the numbness is constant throughout the day. He claims to have pain on the dorsal aspect of the right hand with numbness in all his digits. The patient is interested in discussing conservative versus surgical intervention. Patient has a significant medical history of diabetes mellitus. A1c on 06/22/2023 was 6.7. The patient was given bilateral velcro wrist splints, off the shelf, to be worn at night only. A booking sheet was created and given to the surgical services coordinator to begin obtaining authorization for a right carpal tunnel release. Follow-up will be pending surgery, or sooner if needed. EMG study of the right upper extremity, obtained on 01/20/2023, revealed: Mild compression palsy of the median nerve at the wrist on the right consistent with mild carpal tunnel syndrome superimposed on sensory neuropathy. Patient Instructions: Scribed by Waleska Florian medical assistant per diem, for Macy Manning PA-C on 09/28/2023 at 9:54 am, EST. Coding Level of Care Code New Pt Level 4 (11794) Diagnoses Right carpal tunnel syndrome G56.01 Left carpal tunnel syndrome G56.02
[2023-09-28 09:55] VITALS: BMI 36.2
== END 2023-09-28 10:47 | disposition home or self-care (01) ==
PROVIDERS: PCP Physician Assistant; Visit Provider Physician Assistant
DX: G56.03 Carpal tunnel syndrome, bilateral upper limbs (principal)
CPT/HCPCS: 99204

== ENCOUNTER → 2023-09-28 09:48 | Outpatient (BNVA) | payer OTHER, SELFPAY | PROVIDERS: PCP Physician Assistant; Visit Provider Physician Assistant | DX: G56.03 Carpal tunnel syndrome, bilateral upper limbs (principal) | CPT/HCPCS: 99202 ==

== ENCOUNTER 2023-10-06 11:02 | Outpatient (AMB) | payer OTHER, SELFPAY ==
--- NOTE | 2023-10-06 11:04 | MHC.OFFVIS ---
Intake Visit Reasons: follow up. 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 Accompanied by: Self / Same As Patient Allergies metoprolol [METOPROLOL] Allergy (Unknown, Verified 10/06/23 11:36) UNKNOWN Medication List - Last Reconciled 10/06/23 by ANGIE Davis- aspirin (Adult Low Dose Aspirin) 81 mg PO DAILY atorvastatin 80 mg PO BEDTIME blood sugar diagnostic (FreeStyle Lite Strips) As directed three times a day blood-glucose meter (FreeStyle Lite Meter kit) As directed to test 3 times per day blood-glucose meter,continuous (FreeStyle Rod 3 [place]) As directed blood-glucose sensor (FreeStyle Rod 3 Sensor device) As directed carvedilol 3.125 mg PO BID CPAP (CPAP Machine/Device) As directed dulaglutide (Trulicity) 3 mg (0.5 mL) subcut QWEEK 4 weeks empagliflozin (Jardiance) 10 mg PO DAILY 90 days ezetimibe 10 mg PO DAILY insulin glargine (Lantus Solostar U-100 Insulin) 45 units (0.45 mL) subcut BID lancets (FreeStyle Lancets) As directed three time a day omeprazole 40 mg PO DAILY pen needle, diabetic As directed pen needle, diabetic (Comfort EZ Pen [place]) TWICE A DAY sacubitril-valsartan 24-26 mg 1 tab PO BID 90 days spironolactone 25 mg PO DAILY tadalafil 5 mg PO DAILY 90 days tadalafil (Cialis) 20 mg PO DAILY PRN 90 days ticagrelor 90 mg PO BID 90 days HPI Comments Details: Jd is a pleasant 53 year-old male patient of Dr. Yates. He has a past medical history of obesity, hyperlipidemia, hypertension, type 2 diabetes with polyneuropathy, CAD, and CAT. He presents to the office today for a follow up of his erectile dysfunction. In discussion with the patient today reports to be doing and feeling well. He reports noting significant headaches with p.r.n. Viagra. He does report noting significant improvement in his erections with Viagra however is experiencing headaches even 1-2 days after p.r.n. dosing. He otherwise denies any bothersome urinary issues or concerns. He discusses following up with his PCP and his A1c is down to 07/10 6.7. In office urinalysis results reviewed with the patient today. PSAs are as follows PSA 12/09 0.2 Testosterone 01/09 388 Free testosterone 01/09 52.8 He discusses his continuation on working with his diabetes. He discusses being more compliant with his CPAP machine. When asked he denies urinary urgency, urinary frequency, incontinence, nocturia, hematuria, dysuria, foul smelling urine, changes to urinary stream, flank pain, fever, and or chills. He is happy with his current voiding parameters. He otherwise offers no issues or concerns at this time. [facility] Medical History Nocturnal hypoxemia Infection of penis History of torn meniscus of right knee CAD (coronary artery disease) Type 2 diabetes mellitus with hyperglycemia, with long-term current use of insulin Type 2 diabetes mellitus with diabetic polyneuropathy Essential hypertension Hyperlipidemia LDL goal <70 Obesity due to excess calories Surgical History Hx of cardiac catheterization History of lateral meniscus repair of right knee Family History Father No problems noted. Mother No problems noted. Son Diabetes mellitus type 1 Social History Household Members: Family Housing: Apartment Alcohol intake: current Alcohol intake frequency: does not drink Patient Tobacco Use Status: Never used Tobacco e-Cigarette/Vaping Use: Never Used Second Hand Smoke Exposure: No service: No Current occupational status: unemployed Cognitive needs: No Hearing needs: No Vision needs: Yes (Glasses) Review of Systems Const Reports as per HPI Eyes Reports no additional complaints ENT Reports as per HPI Card Reports as per HPI Resp Reports as per HPI GI Reports no additional complaints Reports as per HPI Neuro Reports no additional complaints Psych Reports no additional complaints Endo Reports as per HPI Physical Exam Const General: cooperative, healthy appearing, comfortable, no acute distress, well developed, alert and awake Nutritional Appearance: overweight Orientation/consciousness: patient oriented x3 Limitations: no limitations HEENT Head: Yes normal to inspection, Yes normocephalic and Yes atraumatic Ears: hearing grossly normal bilaterally Eyes General: appearance normal, both eyes and all related structures Neck Neck: Yes normal visual inspection and Yes trachea midline Chest Chest palpation & inspection: normal inspection of the chest Resp Effort & Inspection: normal respiratory effort and able to speak in complete sentences Cardio Rate: regular rate GI Inspection: Yes normal to inspection General: Yes no CVA tenderness Back/Spine/Pelvis Back: no CVA tenderness Skin General skin exam: no rashes or lesions noted Neuro General: patient oriented x3 Extrem General: Yes normal to inspection Psych Appearance: grossly normal and well kempt Mental Status: mental status grossly normal Speech and movement: Normal speech and movement present and Clear speech present Affect: normal affect Attitude: cooperative Thought process: Normal thought process present Thought content: Normal thought content present Insight: Fair insight present (Psych) Judgement: Fair judgement present (Psych) Results AMB Urinalysis, Automated UA Leukoctes 0 Madhu/uL Last Edit by [employer] on 10/06/23 11:22 UA Nitrite Negative Last Edit by [employer] on 10/06/23 11:22 UA Urobilinogen 0.2 mg/dL Last Edit by [employer] on 10/06/23 11:22 UA Protein 0 mg/dL Last Edit by [employer] on 10/06/23 11:22 UA pH 5.5 Last Edit by [employer] on 10/06/23 11:22 UA Blood 0 Hugh/uL Last Edit by [employer] on 10/06/23 11:22 UA Specific [place] 1.010 Last Edit by [employer] on 10/06/23 11:22 UA Ketone Negative Last Edit by [employer] on 10/06/23 11:22 UA Bilirubin 0 mg/dL Last Edit by [employer] on 10/06/23 11:22 UA Glucose 1000 mg/dL Last Edit by [employer] on 10/06/23 11:22 Results Reviewed Results Reviewed: Laboratory Last Values Urine pH (Auto) 5.5 10/06/23 11:09 Specific [place] (Auto) 1.010 10/06/23 11:09 Urine Protein (Auto) 0 mg/dL 10/06/23 11:09 Glucose (UA)(Auto) 1000 mg/dL 10/06/23 11:09 Urine Ketones (Auto) Negative 10/06/23 11:09 Urine Blood (Auto) 0 Hugh/uL 10/06/23 11:09 Urine Nitrite (Auto) Negative 10/06/23 11:09 Urine Bilirubin (Auto) 0 mg/dL 10/06/23 11:09 Urine Urobilinogen (Auto) 0.2 mg/dL 10/06/23 11:09 Leukocyte Esterase (Auto) 0 Madhu/uL 10/06/23 11:09 Assessment & Plan Assessment & Plan (1) Erectile dysfunction associated with type 2 diabetes mellitus: Code(s): E11.69 - Type 2 diabetes mellitus with other specified complication; N52.1 - Erectile dysfunction due to diseases classified elsewhere Category: Medical Plan In office urinalysis results reviewed with the patient today; as noted above. Patient currently denies any bothersome urinary issues or concerns. He reports be happy with current voiding parameters. Stop p.r.n. Viagra Start tadalafil 5 mg daily. Prescription provided for p.r.n. tadalafil as needed prior to sexual activity. Discussed, educated, and stressed the importance of continuing to manage diabetes as well as compliance with CPAP machine for improvement overall health and well-being as well as urologically. PSA and testosterone results reviewed with the patient today; as noted above. Discussed lifestyle modifications to assist with ED Will obtain PSA in 6 months. Follow-up in 6 months with lab to be completed prior; or sooner with any issues, concerns, and or questions. Orders: Orders AMB Urinalysis Automated Today Z13.9 - Encounter for screening, unspecified Medications: New tadalafil [id number] [facility] [id number] Member [id number] 5 mg PO DAILY 90 days 90 tabs 2RF sexual activity E11.69 - Type 2 diabetes mellitus with other specified complication, N52.01 - Erectile dysfunction due to arterial insufficiency, N52.1 - Erectile dysfunction due to diseases classified elsewhere, N52.9 - Male erectile dysfunction, unspecified Patient Instructions: The patient had an opportunity to ask questions regarding the treatment plan. All questions were answered. Physical exam, labs, and imaging were discussed and reviewed in detail. As well as risks, benefits, and discussion of treatment choices. No major barriers to understanding were identified. The patient expressed understanding and agreement with the above treatment plan. The patient was made aware they should contact our office by phone for worsening of their current condition, the appearance of new symptoms, or with any questions or concerns. Compliance is encouraged with any medications and follow up testing that is ordered. It is a privilege to be allowed the opportunity to participate in? your urological care.? Again, if you have any questions or concerns If you have any questions or concerns please do not hesitate to contact me. The office is [phone]. This note is constructed using voice recognition software. While every effort has been made to ensure accuracy public finance specialist errors may have been included. Yours sincerely, MEGHNA Davis Coding Level of Care Code Est Pt Level 4 (90231) Diagnoses Erectile dysfunction associated with type 2 diabetes mellitus E11.69; N52.1
== END 2023-10-06 11:40 | disposition home or self-care (01) ==
PROVIDERS: PCP Physician Assistant; Visit Provider Nurse Practitioner Family
DX: E11.69 Type 2 diabetes mellitus with other specified complication (principal); N52.1 Erectile dysfunction due to diseases classified elsewhere; Z13.9 Encounter for screening, unspecified
CPT/HCPCS: 99214

== ENCOUNTER → 2023-10-06 11:02 | Outpatient (BNVA) | payer OTHER, SELFPAY | PROVIDERS: PCP Physician Assistant; Visit Provider Nurse Practitioner Family | DX: E11.69 Type 2 diabetes mellitus with other specified complication (principal); N52.1 Erectile dysfunction due to diseases classified elsewhere | CPT/HCPCS: 81003; 99212 ==

== ENCOUNTER 2023-11-08 10:26 | Outpatient (AMB) | payer OTHER, SELFPAY ==
[2023-11-08 10:28] VITALS: BP 130/70; PULSE 93; BMI 36.6
--- NOTE | 2023-11-08 10:28 | MHC.OFFVIS ---
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 Accompanied by: Self / Same As Patient Allergies metoprolol [METOPROLOL] Allergy (Unknown, Verified 10/06/23 11:36) UNKNOWN Medication List - Last Reconciled 11/08/23 by Reggie Guerin MD aspirin (Adult Low Dose Aspirin) 81 mg PO DAILY atorvastatin 80 mg PO BEDTIME blood sugar diagnostic (FreeStyle Lite Strips) As directed three times a day blood-glucose meter (FreeStyle Lite Meter kit) As directed to test 3 times per day blood-glucose meter,continuous (FreeStyle Rod 3 [place]) As directed blood-glucose sensor (FreeStyle Rod 3 Sensor device) As directed carvedilol 3.125 mg PO BID CPAP (CPAP Machine/Device) As directed dulaglutide (Trulicity) 3 mg (0.5 mL) subcut QWEEK 4 weeks dulaglutide (Trulicity) 1.5 mg (0.5 mL) subcut QWEEK 4 weeks empagliflozin (Jardiance) 10 mg PO DAILY 90 days ezetimibe 10 mg PO DAILY insulin glargine (Lantus Solostar U-100 Insulin) 45 units (0.45 mL) subcut BID lancets (FreeStyle Lancets) As directed three time a day omeprazole 40 mg PO DAILY pen needle, diabetic As directed pen needle, diabetic (Comfort EZ Pen [place]) TWICE A DAY sacubitril-valsartan 24-26 mg 1 tab PO BID 90 days spironolactone 25 mg PO DAILY tadalafil 5 mg PO DAILY 90 days tadalafil (Cialis) 20 mg PO DAILY PRN 90 days ticagrelor 90 mg PO BID 90 days HPI Comments Details: Pleasant 53-year-old gentleman who had anterior wall AR while he was in [place] 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 Based on echocardiography performed in September 2022 his ejection fraction is 35-40%. He has been on guideline directed medical therapy. He has been doing well. Clinically euvolemic and asymptomatic at this point. No anginal symptoms. No bleeding concerns with medications that he is using regularly. 11/08/2023: He is here for follow-up. Repeat echocardiography in 08/07/2023 has shown EF 35-40% again. No significant worsening or improvement in the EF. Clinically has been euvolemic and doing well. No chest discomfort shortness of breath. He has carpal tunnel syndrome and may pursue surgery. No bleeding concerns. [facility] Medical History Nocturnal hypoxemia Infection of penis History of torn meniscus of right knee CAD (coronary artery disease) Type 2 diabetes mellitus with hyperglycemia, with long-term current use of insulin Type 2 diabetes mellitus with diabetic polyneuropathy Essential hypertension Hyperlipidemia LDL goal <70 Obesity due to excess calories Surgical History Hx of cardiac catheterization History of lateral meniscus repair of right knee Family History Father No problems noted. Mother No problems noted. Son Diabetes mellitus type 1 Social History Household Members: Family Housing: Apartment Alcohol intake: current Alcohol intake frequency: does not drink Patient Tobacco Use Status: Never used Tobacco e-Cigarette/Vaping Use: Never Used Second Hand Smoke Exposure: No service: No Current occupational status: unemployed Cognitive needs: No Hearing needs: No Vision needs: Yes (Glasses) Review of Systems Const Denies chills, Denies fatigue, Denies fever(s), Denies frequent falls, Denies weakness, Denies weight gain and Denies weight loss ENT Denies dizziness Card Denies chest pain, Denies leg edema, Denies lightheadedness, Denies palpitations, Denies dyspnea and Denies dyspnea on exertion Resp Denies cough, Denies dyspnea and Denies dyspnea on exertion GI Denies hematochezia Musc Denies abnormal gait, Denies muscle weakness, Denies numbness, Denies radiating pain into limb and Denies tingling Neuro Denies abnormal gait, Denies dizziness, Denies frequent falls, Denies numbness, Denies tingling and Denies weakness Endo Denies fatigue and Denies palpitations Physical Exam Vital Signs: Last Vital Signs Pulse 93 07/22/24 10:28 BP 130/70 11/08/23 10:28 BMI result Body Mass Index 36.6 GENERAL APPEARANCE: in no acute distress, pleasant. NECK: no carotid bruit, no jugular venous distention. SKIN: no suspicious lesions, warm and dry. HEART: no murmurs, regular rate and rhythm. LUNGS: clear to auscultation bilaterally. ABDOMEN: soft, nontender. EXTREMITIES: no edema. PERIPHERAL PULSES: equal. NEUROLOGIC: No gross deficits, AAO X 3 Office Procedures EKG Details: Sinus rhythm 93 beats per minute, normal axis, anteroseptal infarct, lateral T-wave inversions. [id number], Complete Assessment & Plan Assessment & Plan (1) Essential hypertension: Code(s): I10 - Essential (primary) hypertension Category: Medical (2) Hyperlipidemia LDL goal <70: Code(s): E78.5 - Hyperlipidemia, unspecified Category: Medical (3) Ischemic cardiomyopathy: Code(s): I25.5 - Ischemic cardiomyopathy Category: Medical Plan Pleasant 53-year-old gentleman who is here for follow-up. He has previous history of anterior wall AR with EF 35-40%. Clinically euvolemic currently. He is on aspirin and ticagrelor. He may go for carpal tunnel surgery. He can stop ticagrelor at that time but aspirin should not be stopped. He is intermediate risk for perioperative complications. He is on low-dose Entresto. His blood pressure is 130/70 and we can increase the Entresto dose. We will see him back in 8 weeks and will increase the carvedilol at that time. He is on Jardiance 10 mg daily. No indication for ICD currently. We will closely monitor him. His last LDL cholesterol is 47, total cholesterol 90, triglyceride 47 and HDL 34. Thank you for allowing me to participate in the care of your patient. Please feel free to contact me if you have any questions. Medications: New sacubitril-valsartan 49-51 mg 1 tab PO BID 120 tabs 4RF Discontinued sacubitril-valsartan 24-26 mg Discontinued Reason: None 1 tab PO BID 90 days 180 tabs 3RF I25.5 - Ischemic cardiomyopathy Coding Level of Care Code Est Pt Level 4 (69773) Diagnoses Essential hypertension I10 Hyperlipidemia LDL goal <70 E78.5 Ischemic cardiomyopathy I25.5 CPT Codes EKG - CPT: 06387-[id number], Complete ([id number])
== END 2023-11-08 10:58 | disposition home or self-care (01) ==
PROVIDERS: PCP Physician Assistant; Visit Provider Internal Medicine Cardiovascular Disease
DX: I10 Essential (primary) hypertension (principal); E78.5 Hyperlipidemia, unspecified; I25.5 Ischemic cardiomyopathy
CPT/HCPCS: 93010; 99214

== ENCOUNTER → 2023-11-08 10:26 | Outpatient (BNVA) | payer OTHER, SELFPAY | PROVIDERS: PCP Physician Assistant; Visit Provider Internal Medicine Cardiovascular Disease | DX: I10 Essential (primary) hypertension (principal); I25.5 Ischemic cardiomyopathy; E78.5 Hyperlipidemia, unspecified; R94.31 Abnormal electrocardiogram [ECG] [EKG] | CPT/HCPCS: 93005; 99212 ==

== ENCOUNTER 2023-11-18 10:25 | Outpatient (REF) | payer OTHER, SELFPAY ==
[2023-11-18 12:03] LABS: Creatinine Urine 271.47 mg/dL
[2023-11-18 12:05] LABS: Alanine Aminotransferase 17 U/L (0-40); Albumin Level 4.2 g/dL (3.5-5.0); Alkaline Phosphatase 90 U/L (39-117); Anion Gap 12 (12-20); Aspartate Amino Transferase 24 U/L (5-37); Bilirubin Total 0.8 mg/dL (0.0-1.0); Blood Urea Nitrogen 14 mg/dL (9-16); Calcium 9.6 mg/dL (8.4-10.2); Carbon Dioxide 28 mmol/L (22-29); Chloride 105 mmol/L (96-108); Cholesterol 101 mg/dL (<200); Estimated Glomerular Filt Rate > 60; Glucose Fasting 109 mg/dL (60-99); HDL Cholesterol 35 mg/dL (>40); LDL Cholesterol Calculated 53 mg/dL (<100); Potassium 3.9 mmol/L (3.3-5.1); Sodium 141 mmol/L (135-145); Total Protein 7.5 g/dL (6.5-8.0); Triglycerides 66 mg/dL (<150)
[2023-11-18 12:23] LABS: Prostate Specific Antigen Scr 0.37 ng/mL (<0.05-4.0)
== END 2023-11-18 10:26 | disposition home or self-care (01) ==
LOC: HO.LAB 10:25
PROVIDERS: PCP Physician Assistant; Visit Provider Physician Assistant
DX: I10 Essential (primary) hypertension (principal); Z12.5 Encounter for screening for malignant neoplasm of prostate; E78.5 Hyperlipidemia, unspecified
CPT/HCPCS: 36415; 80053; 80061; 82043; 82570; 84153

== ENCOUNTER 2023-11-18 10:45 | Outpatient (AMB) | payer OTHER, SELFPAY ==
[2023-11-18 11:00] VITALS: BP 100/66; PULSE 90; O2SAT 95; BMI 36.3
--- NOTE | 2023-11-18 11:00 | MHC.PC.OV ---
Vital Signs 11/18/23 11:00 Height 6 ft 2 in Weight 283 lb BMI 36.3 BP 100/66 Blood Pressure Location Lt brachial Position Sitting Pulse 90 Pulse Source Pulse Oximeter Pulse Oximetry (%) 95 Oxygen Delivery Method Room Air Intake Visit Reasons: 5mth f/u Russian Teacher Required: No Accompanied by: Self / Same As Patient Allergies metoprolol [METOPROLOL] Allergy (Unknown, Verified 11/18/23 11:17) UNKNOWN Medication List - Last Reconciled 11/18/23 by Will De La Torre PA-C aspirin (Adult Low Dose Aspirin) 81 mg PO DAILY atorvastatin 80 mg PO BEDTIME blood sugar diagnostic (FreeStyle Lite Strips) As directed three times a day blood-glucose meter (FreeStyle Lite Meter kit) As directed to test 3 times per day blood-glucose meter,continuous (FreeStyle Rod 3 [place]) As directed blood-glucose sensor (FreeStyle Rod 3 Sensor device) As directed carvedilol 3.125 mg PO BID CPAP (CPAP Machine/Device) As directed dulaglutide (Trulicity) 3 mg (0.5 mL) subcut QWEEK 4 weeks dulaglutide (Trulicity) 1.5 mg (0.5 mL) subcut QWEEK 4 weeks empagliflozin (Jardiance) 10 mg PO DAILY 90 days ezetimibe 10 mg PO DAILY insulin glargine (Lantus Solostar U-100 Insulin) 45 units (0.45 mL) subcut BID lancets (FreeStyle Lancets) As directed three time a day omeprazole 40 mg PO DAILY pen needle, diabetic As directed pen needle, diabetic (Comfort EZ Pen [place]) TWICE A DAY sacubitril-valsartan 49-51 mg 1 tab PO BID spironolactone 25 mg PO DAILY tadalafil 5 mg PO DAILY 90 days tadalafil (Cialis) 20 mg PO DAILY PRN 90 days ticagrelor 90 mg PO BID 90 days Tobacco use date assessed: 06/22/23 Dental Screening Dental Screen Date: 06/22/23 HPI 5mt f/u HPI Details Patient is a 53-year-old male here today for a follow-up visit. Patient has a past medical history significant for type 2 diabetes, coronary artery disease with stent x3, ischemic cardiomyopathy, hypertension, hyperlipidemia, morbid obesity, obstructive sleep apnea. Median nerve neuropathy: Has followed up with Orthopedics here in [place] and is considering carpal tunnel release surgery. He is concerned with the success rate for this surgery. . Coronary artery disease/ heart failure with reduced ejection fraction: Recently had stents placed in his coronary arteries in 2022. Continues to follow cardiology. Also does have heart failure and does managed with spironolactone an entresto. His heart failure seems well compensated Recently had his interested though increased for better blood pressure control. As far as his heart failure has been well controlled. Most recent echocardiogram does have slightly reduced ejection fraction at 35-40%. .. Type 2 diabetes: Most recent A1c elevated at 7.9 from 6.7. Has been having some difficulty receiving Trulicity due to availability at pharmacy. He does admit to dietary indiscretion as of late due to stress. Patient's most recent fasting blood sugar much improved.. He continues on Trulicity 3 mg and long-acting insulin 45 units b.i.d. . PLAN: Will follow more strict diabetic diet to get his hyperglycemia better controlled .. Obstructive sleep apnea ( severe): Followed by pulmonology ( Dr Mckeon). Tries to be compliant with daily use of his CPAP machine [facility] Medical History Nocturnal hypoxemia Infection of penis History of torn meniscus of right knee CAD (coronary artery disease) Type 2 diabetes mellitus with hyperglycemia, with long-term current use of insulin Type 2 diabetes mellitus with diabetic polyneuropathy Essential hypertension Hyperlipidemia LDL goal <70 Obesity due to excess calories Surgical History Hx of cardiac catheterization History of lateral meniscus repair of right knee Family History Father No problems noted. Mother No problems noted. Son Diabetes mellitus type 1 Social History Household Members: Family Housing: Apartment Alcohol intake: current Alcohol intake frequency: does not drink Patient Tobacco Use Status: Never used Tobacco e-Cigarette/Vaping Use: Never Used Second Hand Smoke Exposure: No service: No Current occupational status: unemployed Cognitive needs: No Hearing needs: No Vision needs: Yes (Glasses) Questionnaire Thrive Questionnaire Date Thrive assessed: 07/29/22 LLOYD-7 AMB Questionnaire LLOYD-7 Date LLOYD - 7 assessed: 07/29/22 Source: Developed by Drs. David Celis, Jazmin Christensen, Clif Oconnell and colleagues, with an educational keyanna from [employer]. Review of Systems Const Denies headache(s) Eyes Denies loss of vision ENT Denies vertigo, Denies dizziness, Denies headache(s) and Denies sore throat Card Denies chest pain, Denies leg edema and Denies lightheadedness Resp Denies cough, Denies hemoptysis and Denies wheezing GI Denies abdominal pain, Denies melena, Denies constipation, Denies diarrhea and Denies vomiting Denies dysuria, Denies urinary frequency and Denies urinary urgency Musc Denies arthralgias, Denies joint swelling, Denies numbness and Denies tingling Neuro Denies Abnormal speech present, Denies behavioral changes, Denies vertigo, Denies dizziness, Denies headache(s), Denies loss of vision, Denies memory loss, Denies numbness and Denies tingling Psych Denies anxiety, Denies behavioral changes, Denies depression, Denies memory loss and Denies panic attacks Timmy/Lymph Denies easy bleeding and Denies easy bruising Aller/Immun Denies wheezing Physical exam (Primary Care) Vital Signs: Last Vital Signs Pulse 90 11/18/23 11:00 BP 100/66 11/18/23 11:00 Pulse Ox 95 11/18/23 11:00 Oxygen Delivery Method Room Air 11/18/23 11:00 BMI result Body Mass Index 36.3 Tobacco/Smoking Status: Tobacco use Status Tobacco use date assessed 06/22/23 11/18/23 11:01 Patient Tobacco Use Status Never used Tobacco 11/18/23 11:01 e-Cigarette/Vaping Use Never Used 11/18/23 11:01 Thrive Assessment: Date of Thrive Assessment Date Thrive assessed 07/29/22 11/18/23 11:01 Const General: healthy appearing, no acute distress, alert and awake Nutritional Appearance: well nourished Orientation/consciousness: oriented to person, oriented to place and oriented to time HENMT Ears: TM's normal bilaterally General nose exam: Normal nasal mucous membranes and turbinates present Eyes Conjunctivae: conjunctivae normal Sclerae: sclerae normal Pupils: Equal, round and reactive pupils present Neck Neck: Yes no lymphadenopathy and Yes no JVD Thyroid: Thyroid normal Carotids: no bruits Resp Effort & Inspection: normal respiratory effort and not tachypneic Auscultation: no crackles, no rales, no rhonchi and no wheezes Cardio Rate: regular rate Rhythm: regular rhythm Heart sounds: no murmurs and normal S1 and S2 GI Palpation (GI): Soft to palpation, nontender, no hepatomegaly and no splenomegaly Auscultation: normal bowel sounds Skin General skin exam: no rashes or lesions noted and dry skin Neuro General: oriented to person, oriented to place and oriented to time Cranial nerves: Yes Equal, round and reactive pupils present Speech: No Abnormal speech present Gait exam (Neuro): Normal gait present Motor exam (neuro): no tremor noted Extrem Right upper extremity: full ROM Left upper extremity: full ROM Right lower extremity: full ROM; no edema Left lower extremity: full ROM; no edema Psych Mental Status: mental status grossly normal Speech and movement: Normal speech and movement present Affect: normal affect Attitude: cooperative Thought process: Normal thought process present Results AMB Hemoglobin A1c AMB Hemoglobin A1c 7.9 % Last Edit by LEONORA Lino on 11/18/23 11:12 Results Reviewed Results Reviewed: Laboratory Last Values Hgb A1c (Clinic) 7.9 % (4.0-6.0) H 11/18/23 11:11 Assessment and Plan Assessment & Plan (1) CAD (coronary artery disease): Code(s): I25.10 - Atherosclerotic heart disease of [place] coronary artery without angina pectoris Qualifiers: Associated angina: with stable angina Coronary Disease-Associated Artery/Lesion type: [place] artery [place] vs. transplanted heart: [place] heart Qualified Code(s): I25.118 - Atherosclerotic heart disease of [place] coronary artery with other forms of angina pectoris Plan: As per HPI patient is followed by Cardiology. Continues on high-dose statin therapy and dual anti-platelet therapy. Recently had stents placed in his coronary arteries in 2022. He otherwise denies any shortness of breath, chest pain, dizziness. Will continue to follow cardiology. Most recent lipid panel showing excellent control of his LDL (2) Type 2 diabetes mellitus with hyperglycemia, with long-term current use of insulin: Code(s): E11.65 - Type 2 diabetes mellitus with hyperglycemia; Z79.4 - termite inspector (current) use of insulin Plan: Patient's type 2 diabetes now controlled. Today's A1c is 7.9 .. He does admit to dietary indiscretion as he has been a bit stressed as of late. He will reestablish a good diabetic diet. He continues on Trulicity 3 mg it has been more available at the pharmacy Goal A1c is to remain below 7. (3) Hyperlipidemia LDL goal <70: Code(s): E78.5 - Hyperlipidemia, unspecified Plan: Patient's most recent lipid panel showing excellent control of his total cholesterol and LDL.. Patient's goal LDL to be below 70 due to his cardiovascular risk. (4) Essential hypertension: Code(s): I10 - Essential (primary) hypertension Plan: Patient's blood pressure acceptable today in office. Will continue him on his current dose of antihypertensive medication with goal blood pressure to be below 140/90 (5) Right median nerve neuropathy: Code(s): G56.11 - Other lesions of median nerve, right upper limb (6) Obstructive sleep apnea: Comment: THIS GENTLEMAN HAS LONGSTANDING HISTORY OF OBSTRUCTIVE SLEEP APNEA, SINCE LAST VISIT 2 MONTHS AGO, HE HAS BEEN USING CPAP VERY REGULARLY EVERY NIGHT. HE FULLY REALIZES THE BENEFIT OF USING THE CPAP, CLAIMING THAT HIS SLEEP IS MUCH BETTER AND HE WAKES MUCH MORE REFRESHED. ( CPAP, ,FULLFACE MASK PRESSURE 15 CM ) LOST HIS CPAP DEVICE IN THE LUGGAGE, STILL WAITING. TO GET HIS LUGGAGE. Code(s): G47.33 - Obstructive sleep apnea (adult) (pediatric) Plan: As above Orders: Orders AMB Hemoglobin A1c Today E11.65 - Type 2 diabetes mellitus with hyperglycemia, Z79.4 - termite inspector (current) use of insulin Medications: Discontinued dulaglutide (Trulicity) Discontinued Reason: Doctor's Order 1.5 mg (0.5 mL) subcut QWEEK 4 weeks 2 mL 2RF E11.65 - Type 2 diabetes mellitus with hyperglycemia, Z79.4 - termite inspector (current) use of insulin Resumed dulaglutide (Trulicity) 3 mg (0.5 mL) subcut QWEEK 4 weeks 2 mL 1RF E11.65 - Type 2 diabetes mellitus with hyperglycemia, Z79.4 - termite inspector (current) use of insulin Patient Instructions: Goal: A1c to be below 7.0, blood pressure to remain below 140/90 Barriers: Adherence to physical activity and healthy eating habits Coding Level of Care Code Est Pt Level 4 (24804) Diagnoses Coronary artery disease of [place] artery of [place] heart with stable angina pectoris I25.118 Associated angina: with stable angina Coronary Disease-Associated Artery/Lesion type: [place] artery [place] vs. transplanted heart: [place] heart Type 2 diabetes mellitus with hyperglycemia, with long-term current use of insulin E11.65; Z79.4 Hyperlipidemia LDL goal <70 E78.5 Essential hypertension I10 Right median nerve neuropathy G56.11 Obstructive sleep apnea G47.33
== END 2023-11-18 11:37 | disposition home or self-care (01) ==
PROVIDERS: PCP Physician Assistant; Visit Provider Physician Assistant
DX: I25.118 Atherosclerotic heart disease of native coronary artery with other forms of angina pectoris (principal); E11.65 Type 2 diabetes mellitus with hyperglycemia; Z79.4 Long term (current) use of insulin; E78.5 Hyperlipidemia, unspecified; I10 Essential (primary) hypertension; G56.11 Other lesions of median nerve, right upper limb; G47.33 Obstructive sleep apnea (adult) (pediatric)
CPT/HCPCS: 83036; 99214

== ENCOUNTER 2023-12-27 08:52 | Outpatient (AMB) | payer OTHER, SELFPAY ==
--- NOTE | 2023-12-27 08:57 | A.OFFVIS_ITS ---
Vital Signs 12/27/23 08:58 Height 6 ft 2 in Weight 291 lb 0.163 oz BMI 37.4 BP 114/62 Blood Pressure Location Lt brachial Position Sitting Pulse 83 Pulse Source Pulse Oximeter Intake Visit Reasons: 7 wk f/up KM Resin Maker Required: No Allergies metoprolol [METOPROLOL] Allergy (Unknown, Verified 12/27/23 08:59) UNKNOWN Medication List - Last Reconciled 12/27/23 by JAMESON Quinteros aspirin (Adult Low Dose Aspirin) 81 mg PO DAILY atorvastatin 80 mg PO BEDTIME blood sugar diagnostic (FreeStyle Lite Strips) As directed three times a day blood-glucose meter (FreeStyle Lite Meter kit) As directed to test 3 times per day blood-glucose meter,continuous (FreeStyle Rod 3 [place]) As directed blood-glucose sensor (FreeStyle Rod 3 Sensor device) As directed carvedilol 3.125 mg PO BID CPAP (CPAP Machine/Device) As directed dulaglutide (Trulicity) 3 mg (0.5 mL) subcut QWEEK 4 weeks empagliflozin (Jardiance) 10 mg PO DAILY 90 days ezetimibe 10 mg PO DAILY insulin glargine (Lantus Solostar U-100 Insulin) 45 units (0.45 mL) subcut BID lancets (FreeStyle Lancets) As directed three time a day omeprazole 40 mg PO DAILY pen needle, diabetic As directed pen needle, diabetic (Comfort EZ Pen [place]) TWICE A DAY sacubitril-valsartan 49-51 mg 1 tab PO BID spironolactone 25 mg PO DAILY tadalafil 5 mg PO DAILY 90 days tadalafil (Cialis) 20 mg PO DAILY PRN 90 days ticagrelor 90 mg PO BID 90 days HPI HPI 7 wk f/up KM: Details: Jd is a 53-year-old male with past medical history of hypertension, hyperlipidemia, diabetes, CAD, prior anterior TN, recurrent anterior TN 07/2022 with severe in stent stenosis to the LAD, 3 MAYRA placed, ischemic cardiomyopathy who presents for follow-up. On last visit his Entresto dose was increased. Today he reports that he has been doing well with no new symptoms. He walks routinely for exercise. He will get some shortness of breath if climbing over 1 flight of stairs which is not new. No chest discomfort at rest or with activity. No heart palpitations, lightheadedness, presyncope, syncope, PND, orthopnea or edema. Taking all meds as directed. [facility] Medical History Nocturnal hypoxemia Infection of penis History of torn meniscus of right knee CAD (coronary artery disease) Type 2 diabetes mellitus with hyperglycemia, with long-term current use of insulin Type 2 diabetes mellitus with diabetic polyneuropathy Essential hypertension Hyperlipidemia LDL goal <70 Obesity due to excess calories Surgical History Hx of cardiac catheterization History of lateral meniscus repair of right knee Family History Father No problems noted. Mother No problems noted. Son Diabetes mellitus type 1 Social History Household Members: Family Housing: Apartment Alcohol intake: current Alcohol intake frequency: does not drink Patient Tobacco Use Status: Never used Tobacco e-Cigarette/Vaping Use: Never Used Second Hand Smoke Exposure: No service: No Current occupational status: unemployed Cognitive needs: No Hearing needs: No Vision needs: Yes (Glasses) Review of Systems Const All systems reviewed & are unremarkable except as noted in HPI and below ENT Reports dizziness Card Denies chest pain, Denies chest pain at rest, Denies chest pain with activity, Denies rapid heart rate, Denies pedal edema, Denies edema, Denies leg edema, Denies lightheadedness, Denies palpitations, Denies dyspnea, Denies dyspnea on exertion and Denies orthopnea Resp Denies cough, Denies dyspnea and Denies dyspnea on exertion GI Denies hematochezia and Denies change in stool character Musc Denies abnormal gait, Denies limited range of motion, Denies muscle cramps, Denies muscle weakness, Denies numbness, Denies radiating pain into limb, Denies stiffness and Denies tingling Neuro Denies abnormal gait, Reports dizziness, Denies numbness and Denies tingling Endo Denies palpitations Physical Exam Vital Signs: Last Vital Signs Pulse 83 12/27/23 08:58 BP 114/62 09/09/24 08:58 BMI result Body Mass Index 37.4 Const General: cooperative, healthy appearing, comfortable and no acute distress Orientation/consciousness: patient oriented x3 Neck Neck: Yes normal visual inspection Resp Effort & Inspection: normal respiratory effort Auscultation: clear to auscultation bilaterally, no crackles, no rales, no rhonchi and no wheezes Cardio Jugular venous distension: no JVD Rate: regular rate Rhythm: regular rhythm Heart sounds: S1 normal heart sound present, S2 normal heart sound present, no murmurs and no rubs Neuro General: patient oriented x3 Extrem General: Yes normal to inspection and No no pedal edema Psych Appearance: grossly normal Mental Status: mental status grossly normal Speech and movement: Normal speech and movement present Assessment & Plan Assessment & Plan (1) CAD (coronary artery disease): Code(s): I25.10 - Atherosclerotic heart disease of [place] coronary artery without angina pectoris Category: Medical Qualifiers: Associated angina: with stable angina Coronary Disease-Associated Artery/Lesion type: [place] artery [place] vs. transplanted heart: [place] heart Qualified Code(s): I25.118 - Atherosclerotic heart disease of [place] coronary artery with other forms of angina pectoris Plan: History of anterior TN, MAYRA placed while in [place]. Had recurrent anterior STEMI, 07/2022 with cardiac catheterization showing three-vessel coronary artery disease with severe in stent stenosis, 3 MAYRA placed. Residual ischemic cardiomyopathy with EF 35-40%. Last echocardiogram done 07/22/2023 showed EF 35- 40%, wall motion abnormality consistent with ischemic cardiomyopathy. Today he reports no anginal sounding symptoms. Initial blood pressure this visit 114/62, recheck done by me after sitting for 10 minutes was 100/56. Entresto increase last visit and he is tolerating current dose. Labs done on 11/18/2023 showed creatinine 1.16. With his low blood pressure readings I am unable to further titrate carvedilol at this time. Continue carvedilol 3.125 mg b.i.d.. Continue aspirin indefinitely. Continue atorvastatin 80 mg daily with ideal LDL goal less than 70. Labs done 11/18/2023 showed LDL 53. Continue ticagrelor. Will check with his primary programmer operator numerical control regarding long-term DAPT. Continue with good blood pressure, blood sugar and weight control. Signs and symptoms of angina reviewed with him. Cardiology follow-up 6 months, sooner if needed. (2) S/P cardiac catheterization: Comment: 07/23/2022, anterior STEMI, mid LAD 95% stenosis, proximal LAD 95% stenosis, severe ISR, 1st diagonal 90% stenosis, left circumflex 70% stenosis, RCA mid 70% stenosis. Three drug-eluting stents placed to the LAD Code(s): Z98.890 - Other specified postprocedural states Category: Surgical Plan: As above (3) Ischemic cardiomyopathy: Code(s): I25.5 - Ischemic cardiomyopathy Category: Medical Plan: Last echo 07/22/2023 showed EF 35-40%. Echo done 09/17/2022 showing EF 35-40%. Echocardiogram done in 2021 also showed EF 35-40%. He is on appropriate med management for neurohormonal modulation including Entresto, carvedilol, Jardiance, Aldactone. Labs done 11/18/2023 show potassium 3.9, creatinine 1.16. No signs of heart failure on examination. Continue carvedilol, Entresto, Jardiance and Aldactone for neurohormonal modulation. Signs and symptoms of heart failure reviewed with him. (4) Essential hypertension: Code(s): I10 - Essential (primary) hypertension Category: Medical Plan: [place] blood pressure less than 130/85. Well controlled at this time. No medication changes made. (5) Hyperlipidemia LDL goal <70: Code(s): E78.5 - Hyperlipidemia, unspecified Category: Medical Plan: [place] LDL goal less than 70. Labs 11/18/2023 showed LDL 53, normal LFT. Continue high-dose atorvastatin and Zetia. (6) Type 2 diabetes mellitus with hyperglycemia, with long-term current use of insulin: Code(s): E11.65 - Type 2 diabetes mellitus with hyperglycemia; Z79.4 - snf (current) use of insulin Category: Medical Plan: Hemoglobin A1c goal less than 7. Last level in our system 07/29/2022 shows hemoglobin A1c 11.7. Today patient states his most recent hemoglobin A1c was in the 6s, as done in his PCP office. Followed by his PCP. Plan Time spent on chart review, documentation, interview and assessment Coding Level of Care Code Est Pt Level 4 (93526) Diagnoses Coronary artery disease of [place] artery of [place] heart with stable angina pectoris I25.118 Associated angina: with stable angina Coronary Disease-Associated Artery/Lesion type: [place] artery [place] vs. transplanted heart: [place] heart S/P cardiac catheterization Z98.890 Ischemic cardiomyopathy I25.5 Essential hypertension I10 Hyperlipidemia LDL goal <70 E78.5 Type 2 diabetes mellitus with hyperglycemia, with long-term current use of insulin E11.65; Z79.4 Time Spent (min) 30
[2023-12-27 08:58] VITALS: BP 114/62; PULSE 83; BMI 37.4
== END 2023-12-27 09:20 | disposition home or self-care (01) ==
PROVIDERS: PCP Physician Assistant; Visit Provider Nurse Practitioner Family
DX: I25.118 Atherosclerotic heart disease of native coronary artery with other forms of angina pectoris (principal); Z98.890 Other specified postprocedural states; I25.5 Ischemic cardiomyopathy; I10 Essential (primary) hypertension; E78.5 Hyperlipidemia, unspecified; E11.65 Type 2 diabetes mellitus with hyperglycemia; Z79.4 Long term (current) use of insulin
CPT/HCPCS: 99214

== ENCOUNTER → 2023-12-27 08:52 | Outpatient (BNVA) | payer OTHER, SELFPAY | PROVIDERS: PCP Physician Assistant; Visit Provider Nurse Practitioner Family | DX: I25.118 Atherosclerotic heart disease of native coronary artery with other forms of angina pectoris (principal); I25.5 Ischemic cardiomyopathy; I10 Essential (primary) hypertension; E11.65 Type 2 diabetes mellitus with hyperglycemia; E78.5 Hyperlipidemia, unspecified; Z98.890 Other specified postprocedural states; Z79.4 Long term (current) use of insulin | CPT/HCPCS: 99212 ==

== ENCOUNTER 2024-06-21 10:23 | Outpatient (AMB) | payer OTHER, SELFPAY ==
--- NOTE | 2024-06-21 10:24 | A.OFFVIS_ITS ---
Vital Signs 06/21/24 10:26 Height 6 ft 2 in Weight 286 lb 2.56 oz BMI 36.7 BP 120/64 Blood Pressure Location Lt brachial Position Sitting Pulse 87 Pulse Source Pulse Oximeter Intake Visit Reasons: 6 mth f/up Intake Note: 6 mth f/up Group Dynamics Instructor Required: No Accompanied by: Self / Same As Patient Allergies metoprolol [METOPROLOL] Allergy (Unknown, Verified 12/27/23 08:59) UNKNOWN Medication List - Last Reconciled 06/21/24 by Reggie Guerin MD aspirin (Adult Low Dose Aspirin) 81 mg PO DAILY atorvastatin 80 mg PO BEDTIME blood sugar diagnostic (FreeStyle Lite Strips) As directed three times a day blood-glucose meter (FreeStyle Lite Meter kit) As directed to test 3 times per day blood-glucose meter,continuous (FreeStyle Rod 3 Thorp) As directed blood-glucose sensor (FreeStyle Rod 3 Sensor device) As directed carvedilol 3.125 mg PO BID CPAP (CPAP Machine/Device) As directed dulaglutide (Trulicity) 3 mg (0.5 mL) subcut QWEEK 4 weeks empagliflozin (Jardiance) 10 mg PO DAILY 90 days ezetimibe 10 mg PO DAILY lancets (FreeStyle Lancets) As directed three time a day Lantus Solostar U-100 Insulin (insulin glargine) 45 units (0.45 mL) subcut BID 30 days NS omeprazole 40 mg PO DAILY pen needle, diabetic As directed pen needle, diabetic (Comfort EZ Pen Lorraine) TWICE A DAY sacubitril-valsartan 49-51 mg 1 tab PO BID spironolactone 25 mg PO DAILY tadalafil (Cialis) 20 mg PO DAILY PRN 90 days tadalafil 5 mg PO DAILY 90 days ticagrelor 90 mg PO BID 90 days HPI Comments Details: Pleasant 53-year-old gentleman who had anterior wall [place] while he was in [place] 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 Based on echocardiography performed in September 2022 his ejection fraction is 35- 40%. He has been on guideline directed medical therapy. He has been doing well. Clinically euvolemic and asymptomatic at this point. No anginal symptoms. No bleeding concerns with medications that he is using regularly. 11/08/2023: He is here for follow-up. Repeat echocardiography in 08/07/2023 has shown EF 35-40% again. No significant worsening or improvement in the EF. Clinically has been euvolemic and doing well. No chest discomfort shortness of breath. He has carpal tunnel syndrome and may pursue surgery. No bleeding concerns. 06/21/2024: He is here for follow-up. No chest pain or shortness of breath. Taking medication regularly. He is saying Entresto is on back order currently but he will check with pharmacy today. We discussed also about aspirin and Brilinta use as more than 1 year has passed since his PCI. After discussion we have decided to stop aspirin and Brilinta and put him on Plavix monotherapy. He has carpal tunnel syndrome and he is complaining that his hands are weaker and he tends to drop things. I have advised him that he should seriously consider surgery because he was not interested in doing surgery in the past. [facility] Medical History Nocturnal hypoxemia Infection of penis History of torn meniscus of right knee CAD (coronary artery disease) Type 2 diabetes mellitus with hyperglycemia, with long-term current use of insulin Type 2 diabetes mellitus with diabetic polyneuropathy Essential hypertension Hyperlipidemia LDL goal <70 Obesity due to excess calories Surgical History Hx of cardiac catheterization History of lateral meniscus repair of right knee Family History Father No problems noted. Mother No problems noted. Son Diabetes mellitus type 1 Social History Household Members: Family Housing: Apartment Alcohol intake: current Alcohol intake frequency: does not drink Patient Tobacco Use Status: Never used Tobacco e-Cigarette/Vaping Use: Never Used Second Hand Smoke Exposure: No service: No Current occupational status: unemployed Cognitive needs: No Hearing needs: No Vision needs: Yes (Glasses) Review of Systems Const Denies chills, Denies fatigue, Denies fever(s), Denies frequent falls, Denies weakness, Denies weight gain and Denies weight loss ENT Denies dizziness Card Denies chest pain, Denies leg edema, Denies lightheadedness, Denies palpitations, Denies dyspnea and Denies dyspnea on exertion Resp Denies cough, Denies dyspnea and Denies dyspnea on exertion GI Denies hematochezia Musc Denies abnormal gait, Denies muscle weakness, Denies numbness, Denies radiating pain into limb and Denies tingling Neuro Denies abnormal gait, Denies dizziness, Denies frequent falls, Denies numbness, Denies tingling and Denies weakness Endo Denies fatigue and Denies palpitations Physical Exam Vital Signs: Last Vital Signs Pulse 87 06/21/24 10:26 BP 120/64 06/21/24 10:26 BMI result Body Mass Index 36.7 GENERAL APPEARANCE: in no acute distress, pleasant. NECK: no carotid bruit, no jugular venous distention. SKIN: no suspicious lesions, warm and dry. HEART: no murmurs, regular rate and rhythm. LUNGS: clear to auscultation bilaterally. ABDOMEN: soft, nontender. EXTREMITIES: no edema. PERIPHERAL PULSES: equal. NEUROLOGIC: No gross deficits, AAO X 3 Assessment & Plan Assessment & Plan (1) Essential hypertension: Code(s): I10 - Essential (primary) hypertension Category: Medical (2) Ischemic cardiomyopathy: Code(s): I25.5 - Ischemic cardiomyopathy Category: Medical (3) Stable angina: Code(s): I20.89 - Other forms of angina pectoris Category: Medical Plan 53 year gentleman who is here for follow-up. He has previous history of anterior wall W[place] and EF is 35-40%. He is on guideline directed medical therapy. We will repeat echocardiography to reassess ejection fraction. Previously he did not have indication for ICD placement. Stopping aspirin and Brilinta and starting him on Plavix monotherapy. Overall clinically stable. Thank you for allowing me to participate in the care of your patient. Please feel free to contact me if you have any questions. Orders: Orders CA echo transthoracic complete Today I25.5 - Ischemic cardiomyopathy Medications: New clopidogrel 75 mg PO DAILY 90 tabs 4RF Discontinued aspirin (Adult Low Dose Aspirin) Discontinued Reason: Doctor's Order 81 mg PO DAILY 90 tabs 1RF I25.10 - Atherosclerotic heart disease of [place] coronary artery without angina pectoris ticagrelor Discontinued Reason: Doctor's Order 90 mg PO BID 90 days 180 tabs 1RF I25.10 - Atherosclerotic heart disease of [place] coronary artery without angina pectoris, Z98.890 - Other specified postprocedural states Coding Level of Care Code Est Pt Level 4 (94738) Diagnoses Essential hypertension I10 Ischemic cardiomyopathy I25.5 Stable angina I20.89
[2024-06-21 10:26] VITALS: BP 120/64; PULSE 87; BMI 36.7
--- OUTSIDE RECORDS SUMMARY | 2024-06-21 12:10 | XMS_ITS | Continuity of Care Document ---
Author Organization [facility]. If a dditional information is needed, contact Health Information Management at [phone] Address [phone] [place] [address] Phone Care Team Providers Care Bar Finish Operator Name Role Phone Unavailable Unavailable Unavailable Unavailable Unavailable Unavailable Unavailable Unavailable Unavailable Unavailable Unavailable Unavailable Unavailable Unavailable Unavailable Unavailable Unavailable Unavailable Problems Hyperlipidemia Onset:02-Aug-2018 Wilfred Ley MD Obese Onset:02-Aug-2018 Wilfred Ley MD Coronary arteriosclerosis Onset:01-Aug-2018 DON Bob Diabetes mellitus Onset:01-Aug-2018 DON Bob Diabetes mellitus Onset:01-Aug-[address] segment elevation m yocardial infarction Onset:01-Aug-2018 DON Bob Closed fracture of distal fi bula Onset:03-Feb-2017 SUTMA STAPLE REMOVAL RIGHT FOREARM Onset:03-Feb-2017 JASSON Mental Status Cognitive function finding 01-Aug-2018 Allergies and Adverse Reactions metoprolol(Allergy) Onset: 03-Feb-2022 Medications carvedilol 3.125 MG Oral Tab let [Coreg];3.125 MILLIGRAM PO BID MEALS Start:29-Apr-2023 Comments:3.125 MG PO BID MEALS spironolactone 25 MG Oral Ta blet;25 MILLIGRAM PO DAILY Start:29-Apr-2023 Comments:25 MG PO DAILY JARDIANCE;10 MILLIGRAM PO DA PURA Start:29-Apr-2023 Comments:10 MG PO DAILY omeprazole 40 MG Delayed Rel ease Oral Capsule;40 MILLIGRAM PO DAILY Start:29-Apr-2023 Comments:40 MG PO DAILY atorvastatin 80 MG Oral Tabl et;80 MILLIGRAM PO BEDTIME Start:29-Apr-2023 Comments:80 MG PO BEDTIME ticagrelor 90 MG Oral Tablet ;90 MILLIGRAM PO BID Start:29-Apr-2023 Comments:90 MG PO BID Entresto 24 MG-26 MG;1 EACH PO BID Start:29-Apr-2023 Comments:1 EACH PO BID Trulicity;3 MILLIGRAM SUBCUT ANEOUS Q7D Start:29-Apr-2023 Comments:3 MG SUBQ Q7D carvedilol 25 MG Oral Tablet [Coreg];25 MILLIGRAM PO BID MEALS Start:03-Feb-2022 Status:Discontinued Comments:25 MG PO BID MEALS losartan potassium 25 MG Ora l Tablet [Cozaar];25 MILLIGRAM PO DAILY Start:03-Feb-2022 Status:Discontinued Comments:25 MG PO DAILY rosuvastatin calcium 5 MG Or al Tablet;5 MILLIGRAM PO BEDTIME Start:03-Feb-2022 Status:Discontinued Comments:5 MG PO BEDTIME traMADol hydrochloride 50 MG Oral Tablet [Ultram];50 MILLIGRAM PO Q4H PRN Start:03-Feb-2022 Status:Discontinued Comments:50 MG PO Q4H PRN As Needed for P.R.N. PAIN clindamycin 300 MG Oral Caps ule;300 MILLIGRAM PO QID Start:03-Feb-2022 Status:Discontinued Comments:300 MG PO QID insulin glargine 100 UNT/ML Injectable Solution [Lantus];45 UNITS SUBCUTANEOUS BID Start:03-Feb-2022 Comments:45 UNITS SUBQ BID aspirin 81 MG Chewable Table t;81 MILLIGRAM PO DAILY Start:02-Aug-2018 Comments:81 MG PO DAILY atorvastatin 80 MG Oral Tabl et;80 MILLIGRAM PO BEDTIME Start:02-Aug-2018 Status:Discontinued Comments:80 MG PO BEDTIME ticagrelor 90 MG Oral Tablet ;90 MILLIGRAM PO BID Start:02-Aug-2018 Status:Discontinued Comments:90 MG PO BID metoprolol tartrate 25 MG Or al Tablet;25 MILLIGRAM PO BID Start:02-Aug-2018 Status:Discontinued Comments:25 MG PO BID 3 ML insulin aspart protamin e, human 70 UNT/ML / insulin aspart, human 30 UNT/ML Pen Injector [NovoLOG Mix];1 UNITS SUBCUTANEOUS BID Start:02-Aug-2018 Status:Discontinued Comments:1 UNITS SUBQ BID insulin glargine 100 UNT/ML Injectable Solution [Lantus];40 UNITS SUBCUTANEOUS DAILY Start:01-Aug-2018 Status:Discontinued Comments:40 UNITS SUBQ DAILY Social History Smoking Status Tobacco smoking consumption unknown Recorded: Never smoked tobacco Recorded: 03-Feb-2022 Never smoked tobacco Recorded: 01-Aug-2018 Never smoked tobacco Recorded: 03-Feb-2017 Never smoked tobacco Recorded: 25-Jan-2017
== END 2024-06-21 10:50 | disposition home or self-care (01) ==
PROVIDERS: PCP Physician Assistant; Visit Provider Internal Medicine Cardiovascular Disease
DX: I10 Essential (primary) hypertension (principal); I25.5 Ischemic cardiomyopathy; I20.89 Other forms of angina pectoris
CPT/HCPCS: 99214

== ENCOUNTER → 2024-06-21 10:23 | Outpatient (BNVA) | payer OTHER, SELFPAY | PROVIDERS: PCP Physician Assistant; Visit Provider Internal Medicine Cardiovascular Disease | DX: I10 Essential (primary) hypertension (principal); I25.2 Old myocardial infarction; I25.5 Ischemic cardiomyopathy; Z98.890 Other specified postprocedural states; I25.118 Atherosclerotic heart disease of native coronary artery with other forms of angina pectoris | CPT/HCPCS: 99212 ==

== ENCOUNTER 2024-07-04 11:11 | Outpatient (AMB) | payer OTHER, SELFPAY ==
--- NOTE | 2024-07-04 11:25 | MHC.PC.OV ---
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 Accompanied by: Self / Same As Patient Allergies metoprolol [METOPROLOL] Allergy (Unknown, Verified 07/04/24 11:38) UNKNOWN Medication List - Last Reconciled 07/04/24 by Will De La Torre PA-C atorvastatin 80 mg PO BEDTIME blood sugar diagnostic (FreeStyle Lite Strips) As directed three times a day blood-glucose meter (FreeStyle Lite Meter kit) As directed to test 3 times per day blood-glucose meter,continuous (FreeStyle Rod 3 [place]) As directed blood-glucose sensor (FreeStyle Rod 3 Sensor device) As directed carvedilol 3.125 mg PO BID clopidogrel 75 mg PO DAILY CPAP (CPAP Machine/Device) As directed dulaglutide (Trulicity) 3 mg (0.5 mL) subcut QWEEK 4 weeks empagliflozin (Jardiance) 10 mg PO DAILY 90 days ezetimibe 10 mg PO DAILY lancets (FreeStyle Lancets) As directed three time a day Lantus Solostar U-100 Insulin (insulin glargine) 45 units (0.45 mL) subcut BID 30 days NS omeprazole 40 mg PO DAILY pen needle, diabetic As directed pen needle, diabetic (Comfort EZ Pen Crapo) TWICE A DAY sacubitril-valsartan 49-51 mg 1 tab PO BID spironolactone 25 mg PO DAILY tadalafil (Cialis) 20 mg PO DAILY PRN 90 days tadalafil 5 mg PO DAILY 90 days Tobacco use date assessed: 07/04/24 Dental Screening Dental Screen Date: 07/04/24 Did you have a dental visit in the last 12 months?: Yes Did you have a dental problem in the last 6 months where you did not have access to dental care?: No Was dental information given to patient?: Patient has dentist HPI 6 month f/u HPI Details Patient is a 54-year-old male here today for a follow-up visit. Patient has a past medical history significant for type 2 diabetes, coronary artery disease with stent x3, ischemic cardiomyopathy, hypertension, hyperlipidemia, morbid obesity, obstructive sleep apnea. Concern--> he reports he has been suffering with increase racing thoughts at night which has been disrupting his sleep. Has tried melatonin though seems to have not been effective. He is not interested in sleeping medication that is Wednesday date of. He is open to the idea of starting hydroxyzine 10-20 mg before bed to help sleep. We did discuss the possibility of speaking with a mental health therapist about his anxiety disorder. Median nerve neuropathy: Has followed up with Orthopedics here in [place] and is considering carpal tunnel release surgery. He is concerned with the success rate for this surgery. Unfortunately his EMG was about 2 years ago will likely need new EMG testing for further evaluation. We did discuss the possibility of doing occupational therapy to help his bilateral hand strength and dexterity though he is still considering . Coronary artery disease/ heart failure with reduced ejection fraction: Recently had stents placed in his coronary arteries in 2022. Continues to follow cardiology. Also does have heart failure and does managed with spironolactone an entresto. His heart failure seems well compensated Recently had his interested though increased for better blood pressure control. As far as his heart failure has been well controlled. Most recent echocardiogram does have slightly reduced ejection fraction at 35-40%. .. Type 2 diabetes: Today's A1c at 8.6 from 7.9. He does admit to dietary indiscretion as of late due to increased stress in his life. He promises to get back on track with his diabetic diet. Patient's most recent fasting blood sugar much improved.. He continues on Trulicity 3 mg and long-acting insulin 45 units b.i.d. . His type 2 diabetes is complicated by neuropathy particular in his lower extremities. He does report having burning and numbness sensation bilateral feet. PLAN: He is open to the idea of topical treatment for his diabetic neuropathy. He will like to try gabapentin 300 daily to see if it will reduce his neuropathic symptoms. .. Obstructive sleep apnea ( severe): Followed by pulmonology ( Dr Mckeon). Tries to be compliant with daily use of his CPAP machine Laboratory Tests 01/13/23 06/22/23 06/22/23 09:13 11:10 14:01 Hgb 14.8 Hct 43.5 Hgb A1c (Clinic) 7.5 H 6.7 H 11/18/23 11:11 Hgb Hct Hgb A1c (Clinic) 7.9 H [facility] Medical History (Updated 07/04/24 @ 14:05 by Will De La Torre PA-C) STEMI (ST elevation myocardial infarction) Nocturnal hypoxemia Infection of penis History of torn meniscus of right knee CAD (coronary artery disease) Type 2 diabetes mellitus with diabetic polyneuropathy Essential hypertension Hyperlipidemia LDL goal <70 Obesity due to excess calories Surgical History Hx of cardiac catheterization History of lateral meniscus repair of right knee Family History Father No problems noted. Mother No problems noted. Son Diabetes mellitus type 1 Social History Household Members: Family Housing: Apartment Alcohol intake: current Alcohol intake frequency: does not drink Patient Tobacco Use Status: Never used Tobacco e-Cigarette/Vaping Use: Never Used Second Hand Smoke Exposure: No service: No Current occupational status: unemployed Cognitive needs: No Hearing needs: No Vision needs: Yes (Glasses) Questionnaire PHQ-9 Over the last 2 weeks, how often have you been bothered by any of the following problems? 1. Little interest or pleasure in doing things: not at all 2. Feeling down, depressed, or hopeless: not at all 3. Trouble falling or staying asleep, or sleeping too much: not at all 4. Feeling tired or having little energy: not at all 5. Poor appetite or overeating: not at all 6. Feeling bad about yourself - or that you are a failure or have let yourself or your family down: not at all 7. Trouble concentrating on things, such as reading the newspaper or watching television: not at all 8. Moving or speaking so slowly that other people could have noticed. Or the opposite - being so fidgety or restless that you have been moving around a lot more than usual: not at all 9. Thoughts that you would be better off or of hurting yourself in some way: not at all Total score: 0 Depression Screening Interpretation: Negative Depression Screening Done: Yes 41978 - PHQ-9 Billing: Yes Source: Developed by Drs. David Celis, Clif Hernandez and colleagues, with an educational keyanna from [employer] Thrive Questionnaire Date Thrive assessed: 07/04/24 I am a: Patient What is your living situation today?: I have a steady place to live Within the past 12 months, did the food you bought not last and you didn't have the money to get more?: Never true Within the past 12 months, did you worry whether your food would run out before you got money to buy more?: Never true Do you have trouble paying for medicines?: No Do you have trouble getting transportation to medical appointments?: No Do you have trouble paying your heating and electricity bill?: No Do you have trouble taking care of your child, family member or friend?: No Do you have trouble with day-to-day activities such as bathing, preparing meals, shopping, managing finances, etc.?: No Are you currently unemployed and looking for a job?: No Are you interested in more education?: No Please select the resources that you would like help with: None Currently or been in a relationship where the following occur: No concerns reported THRIVE Score: 0 AUDIT C Alcohol Use Questionnaire (AUDIT-C) 1. How often do you have a drink containing alcohol?: Never 3. How often do you have six or more drinks on one occasion?: Never Total Score: 0 Score Reviewed/Action Taken: Yes LLOYD-7 AMB Questionnaire LLOYD-7 Date LLOYD - 7 assessed: 07/04/24 Feeling nervous, anxious, or on edge: 0 = Not at all Not being able to stop or control worryin = Not at all Worrying too much about different things: 0 = Not at all Trouble relaxin = Not at all Being so restless that it is hard to sit still: 0 = Not at all Becoming easily annoyed or irritable: 0 = Not at all Feeling afraid as if something awful might happen: 0 = Not at all Total LLOYD-7 score (0-4 normal; 5-9 mild; 10-14 moderate; 15-21 severe): 0 Source: Developed by Drs. David Celis, Jazmin Christensen, Clif Oconnell and colleagues, with an educational keyanna from [employer] LLOYD-7 Assessment Billing LLOYD-7 Assessment Tool: LLOYD-7 Assessment 84137 Review of Systems Const Denies headache(s) Eyes Denies loss of vision ENT Denies vertigo, Denies dizziness, Denies headache(s) and Denies sore throat Card Denies chest pain, Denies leg edema and Denies lightheadedness Resp Denies cough, Denies hemoptysis and Denies wheezing GI Denies abdominal pain, Denies melena, Denies constipation, Denies diarrhea and Denies vomiting Denies dysuria, Denies urinary frequency and Denies urinary urgency Musc Denies arthralgias, Denies joint swelling, Denies numbness and Denies tingling Neuro Denies Abnormal speech present, Denies behavioral changes, Denies vertigo, Denies dizziness, Denies headache(s), Denies loss of vision, Denies memory loss, Denies numbness and Denies tingling Psych Denies anxiety, Denies behavioral changes, Denies depression, Denies memory loss and Denies panic attacks Timmy/Lymph Denies easy bleeding and Denies easy bruising Aller/Immun Denies wheezing Physical exam (Primary Care) Vital Signs: Last Vital Signs Pulse 94 07/04/24 11:26 BP 122/74 07/04/24 11:26 Pulse Ox 97 07/04/24 11:26 Oxygen Delivery Method Room Air 07/04/24 11:26 BMI result Body Mass Index 36.7 Tobacco/Smoking Status: Tobacco use Status Tobacco use date assessed 07/04/24 07/04/24 11:32 Patient Tobacco Use Status Never used Tobacco 07/04/24 11:32 e-Cigarette/Vaping Use Never Used 07/04/24 11:32 PHQ-9: PHQ-9 Score PHQ-9: Total score 0 07/04/24 13:39 Depression Screening Interpretation: Negative Thrive Assessment: Date of Thrive Assessment Date Thrive assessed 07/04/24 07/04/24 11:32 Currently or been in a relationship where the following occur: No concerns reported Const General: healthy appearing, no acute distress, alert and awake Nutritional Appearance: well nourished Orientation/consciousness: oriented to person, oriented to place and oriented to time HENMT Ears: TM's normal bilaterally General nose exam: Normal nasal mucous membranes and turbinates present Eyes Conjunctivae: conjunctivae normal Sclerae: sclerae normal Pupils: Equal, round and reactive pupils present Neck Neck: Yes no lymphadenopathy and Yes no JVD Thyroid: Thyroid normal Carotids: no bruits Resp Effort & Inspection: normal respiratory effort and not tachypneic Auscultation: no crackles, no rales, no rhonchi and no wheezes Cardio Rate: regular rate Rhythm: regular rhythm Heart sounds: no murmurs and normal S1 and S2 GI Palpation (GI): Soft to palpation, nontender, no hepatomegaly and no splenomegaly Auscultation: normal bowel sounds Skin General skin exam: no rashes or lesions noted and dry skin Neuro General: oriented to person, oriented to place and oriented to time Cranial nerves: Yes Equal, round and reactive pupils present Speech: No Abnormal speech present Gait exam (Neuro): Normal gait present Motor exam (neuro): no tremor noted Extrem Right upper extremity: full ROM Left upper extremity: full ROM Right lower extremity: full ROM; no edema Left lower extremity: full ROM; no edema Psych Mental Status: mental status grossly normal Speech and movement: Normal speech and movement present Affect: normal affect Attitude: cooperative Thought process: Normal thought process present Results AMB Hemoglobin A1c AMB Hemoglobin A1c 8.9 % Last Edit by LEONORA Lino on 07/04/24 11:46 Results Reviewed Results Reviewed: Laboratory Last Values Hgb A1c (Clinic) 8.9 % (4.0-6.0) H 07/04/24 11:45 Coding Level of Care Code Est Pt Level 4 (29637) Diagnoses Type 2 diabetes mellitus with diabetic polyneuropathy, without long-term current use of insulin E11.42 Diabetes mellitus half-way insulin use: without half-way use Diabetes mellitus complication status: with neurologic complications Diabetes mellitus complication detail: with polyneuropathy Coronary artery disease of [place] artery of [place] heart with stable angina pectoris I25.118 Associated angina: with stable angina Coronary Disease-Associated Artery/Lesion type: [place] artery [place] vs. transplanted heart: [place] heart Benign prostatic hyperplasia without lower urinary tract symptoms N40.0 Lower urinary tract symptom presence: symptoms absent Essential hypertension I10 Obstructive sleep apnea G47.33 Hyperlipidemia LDL goal <70 E78.5 Psychophysiological insomnia F51.04 Insomnia type: psychophysiologic Diabetic polyneuropathy associated with diabetes mellitus due to underlying condition E08.42 Diabetes mellitus complication detail: diabetic polyneuropathy Right carpal tunnel syndrome G56.01 Additional Codes LLOYD-7 Assessment Billing - LLOYD-7 Assessment Tool: LLOYD-7 Assessment 15402 ([id number]) PHQ-9 - 19745 - PHQ-9 Billing: Yes ([id number]) Assessment & Plan Assessment & Plan (1) DMII (diabetes mellitus, type 2): Code(s): E11.9 - Type 2 diabetes mellitus without complications Category: Medical Qualifiers: 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 He does admit to dietary indiscretion due to stress. He continues with Trulicity 3 mg weekly, insulin therapy. Will consider preprandial insulin if A1c remains above a 8. 5. Will work extensively on diabetic diet Goal A1c is to be below 7.0 (2) CAD (coronary artery disease): Code(s): I25.10 - Atherosclerotic heart disease of [place] coronary artery without angina pectoris Category: Medical Qualifiers: Associated angina: with stable angina Coronary Disease-Associated Artery/Lesion type: [place] artery [place] vs. transplanted heart: [place] heart Qualified Code(s): I25.118 - Atherosclerotic heart disease of [place] coronary artery with other forms of angina pectoris Plan: Patient continues to follow [place] [facility]. He continues on clopidogrel and high-dose statin therapy. Optimal LDL to be below 70 (3) BPH (benign prostatic hyperplasia): Code(s): N40.0 - Benign prostatic hyperplasia without lower urinary tract symptoms Category: Medical Qualifiers: Lower urinary tract symptom presence: symptoms absent Qualified Code(s): N40.0 - Benign prostatic hyperplasia without lower urinary tract symptoms Plan: Continues to follow [facility]. Does suffer from erectile dysfunction as well. Does use tadalafil quite regularly. (4) Essential hypertension: Code(s): I10 - Essential (primary) hypertension Category: Medical Plan: Patient's blood pressure acceptable today in office. Will continue his current dose of antihypertensive medication with goal blood pressure to remain below 140/90 (5) Obstructive sleep apnea: Comment: THIS GENTLEMAN HAS LONGSTANDING HISTORY OF OBSTRUCTIVE SLEEP APNEA, SINCE LAST VISIT 2 MONTHS AGO, HE HAS BEEN USING CPAP VERY REGULARLY EVERY NIGHT. HE FULLY REALIZES THE BENEFIT OF USING THE CPAP, CLAIMING THAT HIS SLEEP IS MUCH BETTER AND HE WAKES MUCH MORE REFRESHED. ( CPAP, ,FULLFACE MASK PRESSURE 15 CM ) LOST HIS CPAP DEVICE IN THE LUGGAGE, STILL WAITING. TO GET HIS LUGGAGE. Code(s): G47.33 - Obstructive sleep apnea (adult) (pediatric) Category: Medical Plan: Continues to follow [place] [facility] (6) Hyperlipidemia LDL goal <70: Code(s): E78.5 - Hyperlipidemia, unspecified Category: Medical Plan: As above (7) Insomnia: Code(s): G47.00 - Insomnia, unspecified Category: Medical Qualifiers: Insomnia type: psychophysiologic Qualified Code(s): F51.04 - Psychophysiologic insomnia Plan: As per HPI patient's seems to be dealing with an anxiety disorder that his been disrupting asleep. He is willing to try hydroxyzine 10-20 mg before bed to help him sleep. (8) Diabetic neuropathy associated with diabetes mellitus due to underlying condition: Code(s): E08.40 - Diabetes mellitus due to underlying condition with diabetic neuropathy, unspecified Category: Medical Qualifiers: Diabetes mellitus complication detail: diabetic polyneuropathy Qualified Code(s): E08.42 - Diabetes mellitus due to underlying condition with diabetic polyneuropathy Plan: Has per HPI patient has been experiencing bilateral lower extremity neuropathy associated with his type 2 diabetes. He is open to the idea of trying medication and topical diabetic neuropathy treatment. Will refer to [place] [facility] for capsaicin cream treatments. (9) Right carpal tunnel syndrome: Code(s): G56.01 - Carpal tunnel syndrome, right upper limb Category: Medical Plan: Patient continues to have bilateral carpal tunnel syndrome diagnosed in 2022. He continues to have bilateral hand weakness and pain. He reports always dropping things. He is considering carpal tunnel release surgery though is concerned about the failure rate. Did discuss occupational therapy to which he is considering per Orders: Orders Lipid Panel Today I25.118 - Atherosclerotic heart disease of [place] coronary artery with other forms of angina pectoris Complete Blood Count no Diff Today I25.118 - Atherosclerotic heart disease of [place] coronary artery with other forms of angina pectoris Microalbumin, Random (w Creat) Today I10 - Essential (primary) hypertension Prostate Specific Antigen Scr Today N40.0 - Benign prostatic hyperplasia without lower urinary tract symptoms, Z12.5 - Encounter for screening for malignant neoplasm of prostate [facility] [place]. Panel Fast Today I25.118 - Atherosclerotic heart disease of [place] coronary artery with other forms of angina pectoris AMB Hemoglobin A1c Today E11.65 - Type 2 diabetes mellitus with hyperglycemia, Z79.4 - FPC (current) use of insulin Referrals Pain Management Referral E08.40 - Diabetes mellitus due to underlying condition with diabetic neuropathy, unspecified Medications: New hydroxyzine HCl 20 mg (2 x 10 mg) PO BEDTIME 30 tabs 3RF 15 days F41.9 - Anxiety disorder, unspecified, G47.00 - Insomnia, unspecified gabapentin 300 mg PO DAILY 15 caps 0RF 15 days G47.00 - Insomnia, unspecified Changed From carvedilol must administer with a meal/food 3.125 mg PO BID 360 tabs 3RF I25.5 - Ischemic cardiomyopathy To carvedilol must administer with a meal/food 3.125 mg PO BID 180 tabs 3RF 90 days I25.5 - Ischemic cardiomyopathy From dulaglutide (Trulicity) 3 mg (0.5 mL) subcut QWEEK 4 weeks 2 mL 1RF E11.65 - Type 2 diabetes mellitus with hyperglycemia, 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 To dulaglutide (Trulicity) 3 mg (0.5 mL) subcut QWEEK 6.5 mL 3RF 90 days E11.65 - Type 2 diabetes mellitus with hyperglycemia, Z79.4 - FPC (current) use of insulin From Lantus Solostar U-100 Insulin (insulin glargine) 45 units (0.45 mL) subcut BID 30 days 27 mL 5RF NS E11.65 - Type 2 diabetes mellitus with hyperglycemia, Z79.4 - FPC (current) use of insulin To Lantus Solostar U-100 Insulin (insulin glargine) 45 units (0.45 mL) subcut BID 81 mL 3RF 90 days NS E11.65 - Type 2 diabetes mellitus with hyperglycemia, Z79.4 - FPC (current) use of insulin Refilled atorvastatin 80 mg PO BEDTIME 90 tabs 3RF I25.10 - Atherosclerotic heart disease of [place] coronary artery without angina pectoris empagliflozin (Jardiance) 10 mg PO DAILY 90 tabs 3RF 90 days E11.65 - Type 2 diabetes mellitus with hyperglycemia, I25.5 - Ischemic cardiomyopathy, 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
[2024-07-04 11:26] VITALS: BP 122/74; PULSE 94; O2SAT 97; BMI 36.7
== END 2024-07-04 12:09 | disposition home or self-care (01) ==
LOC: HO.HMCH 11:12
PROVIDERS: PCP Physician Assistant; Visit Provider Physician Assistant
DX: E11.42 Type 2 diabetes mellitus with diabetic polyneuropathy (principal); I25.118 Atherosclerotic heart disease of native coronary artery with other forms of angina pectoris; E11.65 Type 2 diabetes mellitus with hyperglycemia; Z79.4 Long term (current) use of insulin; N40.0 Benign prostatic hyperplasia without lower urinary tract symptoms; I10 Essential (primary) hypertension; G47.33 Obstructive sleep apnea (adult) (pediatric); E78.5 Hyperlipidemia, unspecified; F51.04 Psychophysiologic insomnia; G56.01 Carpal tunnel syndrome, right upper limb

== ENCOUNTER → 2024-07-04 11:11 | Outpatient (BNVA) | payer OTHER, SELFPAY | PROVIDERS: PCP Physician Assistant; Visit Provider Physician Assistant | DX: E11.42 Type 2 diabetes mellitus with diabetic polyneuropathy (principal); I25.118 Atherosclerotic heart disease of native coronary artery with other forms of angina pectoris; N40.0 Benign prostatic hyperplasia without lower urinary tract symptoms; I10 Essential (primary) hypertension; G47.33 Obstructive sleep apnea (adult) (pediatric); E78.5 Hyperlipidemia, unspecified; F51.04 Psychophysiologic insomnia; G56.01 Carpal tunnel syndrome, right upper limb | CPT/HCPCS: 83036; 96127; 99212 ==

== ENCOUNTER → 2024-07-21 14:03 | Outpatient (REF) | payer OTHER, SELFPAY ==
--- NOTE | 2024-07-21 14:06 | CA_ITS ---
Transthoracic Echocardiogram Patient (Last, First, Middle): Jd Li A Gender: Male Date of : 1970 Age: 54 Procedure Date: 07/21/2024 Procedure Type: Transthoracic Echocardiogram Location: OP Height: 187. cm Weight: 125.19 kg BSA: 2.48 m2 Heart Rate: bpm BP: 105 / 55 mmHg Sap Basis Administrator: MANUEL Estrada MD: Reggie Guerin MD Keg Inspector: Reggie Guerin MD Symptoms: I25.5 - Ischemic cardiomyopathy Study Quality: Adequate w contrast ECG Rhythm: Sinus Conclusions: - The left ventricular systolic function is moderately decreased. The visually estimated ejection fraction is between 35-40%. - The apex, apical inferior, mid inferior, and mid anteroseptal segments are akinetic. - No obvious valvular pathology seen on this study. Findings Procedure Information Contrast agent, definity, is being given per protocol without apparent complications. Left Ventricle Normal left ventricular cavity size. There is mildly increased left ventricular wall thickness. The left ventricular systolic function is moderately decreased. The visually estimated ejection fraction is between 35 40%. Diastolic function is normal for age. Wall Motion Rest Echo Findings The apex, apical inferior, mid inferior, and mid anteroseptal segments are akinetic. Right Ventricle Normal right ventricular cavity size and systolic function. Atria Both atria are normal in size. Aortic Valve There is a normal trileaflet aortic valve. There is no aortic valve stenosis. There is no aortic valve regurgitation. Mitral Valve The mitral valve appears normal. There is no mitral valve regurgitation. There is no mitral valve stenosis. Pulmonic Valve The pulmonic valve is likely normal. Tricuspid Valve There is no tricuspid valve regurgitation. Tricuspid regurgitation envelope is inadequate for calculation of right ventricular systolic pressure. Great Vessels The asc aorta and aortic arch are normal in size. Venous The inferior vena cava is normal in size and collapses greater than 50% with inspiration. Pericardium/Pleural There is no evidence of pericardial effusion. Prior Study Comparison No significant change compared to prior study dated: 07/22/2023. Recommendations, Care & Conclusions No obvious valvular pathology seen on this study. Measurements 2D Linear Measurements IVSd: 1.24 0.6-0.9/0.6-1.0 cm LVIDd: 4.92 3.9-5.3/4.2-5.9 cm LVIDd Index: 1.98 2.4-3.2/2.2-3.1 cm/m2 LVIDs: 3.05 2.0-3.6 cm LVPWd: 1.20 0.7-1.1 cm LA Diam: 3.80 2.7-3.8/3.0-4.0 cm LAIDs Index: 1.53 1.5-2.3 cm/m2 LV Mass: 290.78 67-162/88-224 g LV Mass Index: 117.25 43-95/49-115 g/m2 LVOT Diam: 2.60 3.0+(-)1.3 cm 2D Systolic Function EF 4C: 40.40 >55% EF 2C: 52.40 >55% EF BiP: 45.90 >55% Mitral Valve MV Pk E: 0.56 MV PK A: 0.72 MV Decel Time: 204.00 E/A: 0.80 E'Lateral: 5.77 E'Medial: 4.68 E/E' Med: 11.90 E/E' Lat: 9.70 PHT: 60.00 MVA PHT: 3.67 Decel [place]: 2.73 Aortic Valve AoV Pk Marek: 1.07 AoV Mn Marek: 0.77 AoV VTI: 0.19 AoV Pk Grad: 5.00 Aov Mn Grad: 3.00 TRISHA Cont.VTI: 4.92 LVOT LVOT Pk Marek: 0.89 LVOT Mn Marek: 0.72 LVOT VTI: 0.18 LVOT Pk Grad: 3.00 LVOT Mn Grad: 2.00 LVOT Diam: 2.60 LVOT Area: 5.31 Diastolic Function MV Pk E: 0.56 MV Pk A: 0.72 E/A: 0.80 E'Medial: 4.68 E/E' Med: 11.90 E' Laterial: 5.77 E/E' Lat: 9.70 Right Ventricle TAPSE (mm): 22.30 TVS' Marek: 12.70 Tricuspid Valve RA Press: 3.00 Great Vessels Aorta Sinus of Valsalva: 4.30 2.0-3.5 cm Ao Asc: 3.40 2.1-3.4 cm Ao Arch: 3.80 Pulmonary Valve PV Pk Marek: 1.07 Peak PV Grad: 5.00 Updated in Other Vendor System with Status of Final Myles Chin MD electronically signed on 07/22/2024 1:16:27 PM with status of Final
--- OUTSIDE RECORDS SUMMARY | 2024-07-21 15:49 | XMS_ITS | Continuity of Care Document ---
Author Organization [facility]. 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 Name Role Phone Unavailable Unavailable Unavailable Unavailable Unavailable Unavailable Unavailable Unavailable Unavailable Unavailable Unavailable Unavailable Unavailable Unavailable Unavailable Unavailable Unavailable Unavailable Problems Obese Onset:02-Aug-2018 Wilfred Ley MD Hyperlipidemia Onset:02-Aug-2018 Wilfred Ley MD Coronary arteriosclerosis Onset:01-Aug-2018 DON Bob Diabetes mellitus Onset:01-Aug-2018 DON Bob Diabetes mellitus Onset:01-Aug-[address] segment elevation m yocardial infarction Onset:01-Aug-2018 DON Bob STAPLE REMOVAL RIGHT FOREARM Onset:03-Feb-2017 SUTMA Closed fracture of distal fi bula Onset:03-Feb-2017 JASSON Mental Status Cognitive function finding [...] Start:03-Feb-2022 Status:Discontinued Comments:25 MG PO BID MEALS rosuvastatin calcium 5 MG Or al Tablet;5 MILLIGRAM PO BEDTIME Start:03-Feb-2022 Status:Discontinued Comments:5 MG PO BEDTIME traMADol hydrochloride 50 MG Oral Tablet [Ultram];50 MILLIGRAM PO Q4H PRN Start:03-Feb-2022 Status:Discontinued Comments:50 MG PO Q4H PRN As Needed for P.R.N. PAIN losartan potassium 25 MG Ora l Tablet [Cozaar];25 MILLIGRAM PO DAILY Start:03-Feb-2022 Status:Discontinued Comments:25 MG PO DAILY clindamycin 300 MG Oral Caps ule;300 MILLIGRAM [...]
== END ==
LOC: HO.CARD 14:03
PROVIDERS: PCP Physician Assistant; Visit Provider Internal Medicine Cardiovascular Disease
DX: I25.5 Ischemic cardiomyopathy (principal)
CPT/HCPCS: 93306; Q9957

== ENCOUNTER → 2024-07-21 14:06 | Outpatient (BNV) | payer OTHER, SELFPAY | PROVIDERS: PCP Physician Assistant; Visit Provider Internal Medicine | DX: I42.8 Other cardiomyopathies (principal); I25.5 Ischemic cardiomyopathy | CPT/HCPCS: 93306 ==

== ENCOUNTER 2024-10-04 10:53 | Outpatient (REF) | payer OTHER, SELFPAY ==
--- OUTSIDE RECORDS SUMMARY | 2024-09-21 15:52 | XMS_ITS | Continuity of Care Document ---
Author Organization [facility]. 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 Role Phone Unavailable Unavailable Unavailable Unavailable Unavailable Unavailable Unavailable Unavailable Unavailable Unavailable Unavailable Unavailable Unavailable Unavailable Unavailable Unavailable Unavailable Unavailable Unavailable Unavailable Unavailable Unavailable Unavailable Unavailable Unavailable Unavailable Unavailable Unavailable Unavailable Unavailable Unavailable Unavailable Unavailable Unavailable Unavailable Unavailable Unavailable Unavailable Unavailable Problems Chest pain Onset:21-Sep-2024 Natty Cardoso DO Hyperlipidemia Onset:02-Aug-2018 Wilfred Ley MD Obese Onset:02-Aug-2018 Wilfred Ley MD Coronary arteriosclerosis Onset:01-Aug-2018 DON Bob Diabetes mellitus Onset:01-Aug-2018 DON Bob Diabetes mellitus Onset:01-Aug-[address] segment elevation m yocardial infarction Onset:01-Aug-2018 DON Bob Closed fracture of distal fi bula Onset:03-Feb-2017 [facility] STAPLE REMOVAL RIGHT FOREARM Onset:03-Feb-2017 [facility] Mental Status Cognitive function finding 01-Aug-2018 Allergies and Adverse Reactions metoprolol(Allergy) Onset: 03-Feb-2022 Medications aspirin 81 MG Chewable Tablet;81 MILLIGRAM DAILY Quantity:1 Aquilino Erazo MD Start:5-Btb-9338Ums:23-Oct-19 Status:Discontinued Comments:[id number] Administration Instructions:Nurses, please consult with physician before discharge toascertain if aspirin should be continued after discharge andobtain order. DAPAGLIFLOZIN PROPANEDIOL 5 MG TABLET;5 MILLIGRAM DAILY Quantity:1 Aquilino Erazo MD Start:2-Wzn-3157Ecw:23-Oct-19 Status:Discontinued Comments:[id number] Administration Instructions:Empagliflozin 10 mg Daily -> Dapagliflozin 5 mg DailyEmpagliflozin 25 mg Daily -> Dapagliflozin 10 mg Daily clopidogrel 75 MG Oral Tablet;75 MILLIGRAM DAILY Quantity:1 Aquilino Erazo MD Start:6-Jfg-9288Ovb:23-Oct-19 Status:Discontinued Comments:[id number] Administration Instructions:HOLD FOR PLATELETS < 70 K ATORVASTATIN CALCIUM;80 MILLIGRAM BEDTIME Quantity:2 Aquilino Erazo MD Start:4-Ypf-4464Iyg:22-Oct-19 Status:Discontinued Comments:[id number] ATORVASTATIN CALCIUM;40 MILLIGRAM BEDTIME Quantity:1 Aquilino Erazo MD Start:2-Dwk-8662Ubr:22-Oct-19 Status:Discontinued Comments:[id number] sacubitril 49 MG / valsartan 51 MG Oral Tablet [Entresto];1 TABLET BID Quantity:1 Aquilino Erazo MD Start:3-Uir-9061Eac:22-Oct-19 Status:Discontinued Comments:[id number] Administration Instructions:NO JULIEN INHIBITOR FOR 36 HOURS BEFORE STARTING ENTRESTOOR STOPPING ENTRESTO THERAPY*NEW START TO BE ORDERED BY YARDAGE CONTROL OPERATOR FORMING*NO JULIEN INHIBITORS FOR 36 HR BEFORE STARTING ENTRESTO ORSTOPPING ENTRESTO THERAPY insulin lispro 100 UNT/ML Injectable Solution [HumaLOG];[id number] r Administration Instructions:==MEDIUM DOSE INSULIN SCALE== 100 UNITS/MLBG<70 REPEAT TEST, CALL MD, and follow Hypoglycemia protocolB-199: GIVE 4 UNITSB-249: GIVE 6 UNITSB-299: GIVE 8 UNTISB-349: GIVE 10 UNITSBG>349: GIVE 12 UNITS Quantity:0 Aquilino Erazo MD Start:5-Dvv-7477Oqh:22-Oct-19 Status:Discontinued Comments:[id number] Administration Instructions:==MEDIUM DOSE INSULIN SCALE== 100 UNITS/MLBG<70 REPEAT TEST, CALL MD, and follow Hypoglycemia protocolB-199: GIVE 4 UNITSB-249: GIVE 6 UNITSB-299: GIVE 8 UNTISB-349: GIVE 10 UNITSBG>349: GIVE 12 UNITS acetaminophen 325 MG Oral Tablet;650 MILLIGRAM Q6H PRN Quantity:2 Aquilino Erazo MD Start:2-Caj-7751Wwa:22-Oct-19 Status:Discontinued Comments:[id number] Administration Instructions:*TOTAL DAILY ACETAMINOPHEN DOSE SHOULD NOT EXCEED 3,000 MG*IF AN IV AND PO PAIN MEDICATION ARE ORDERED FOR THE SAMEPAIN LEVEL, THE PO MEDICATION WILL BE ADMINISTEREDPREFERENTIALLY WHEN THE PATIENT IS ABLE TO TAKE PO. glucagon (rDNA) 1 MG Injection [GlucaGen];1 MILLIGRAM ASDIR Quantity:1 Aquilino Erazo MD Start:7-Ryx-9495Shp:22-Oct-19 Status:Discontinued Comments:[id number] Administration Instructions:If no IV access, give Glucagon as follows:If BG < 70 mg/dL : Give 1 mg IM Glucagon repeat e82aieezlzq BG atleast 70 mg/dLHold Insulin Infusion notify MDObtain IV site and give Dextrose 50 % when available 50 ML glucose 500 MG/ML Prefilled Syringe;[id number] Administration Instructions:If patient has IV access give Dextrose 50% IV based on BGand check every 15 mins until BG atleast 70 mg/dL; NOTIFY MDAdminister Dextrose 50% for the following:If BG < 50 mg/dL : Give 25 gm (50ml) D50WIf BG 50-69 mg/dL : Give 12.5 gm (25ml) D50W Quantity:0 Aquilino Erazo MD Start:6-Xcu-2708Ukw:22-Oct-19 Status:Discontinued Comments:[id number] Administration Instructions:If patient has IV access give Dextrose 50% IV based on BGand check every 15 mins until BG atleast 70 mg/dL; NOTIFY MDAdminister Dextrose 50% for the following:If BG < 50 mg/dL : Give 25 gm (50ml) D50WIf BG 50-69 mg/dL : Give 12.5 gm (25ml) D50W glucose 4000 MG Chewable Tablet;[id number] Administration Instructions:If patient is able to swallow and mealtime is more than 30minutes away give the following:If BG 50-69 mg/dL: Give 12 grams : 3 glucose tabletsIf less than 50 mg/dL: Give 24 grams : 6 glucose tablets Quantity:0 Aquilino Erazo MD Start:0-Xsq-4683Tmh:22-Oct-19 Status:Discontinued Comments:[id number] Administration Instructions:If patient is able to swallow and mealtime is more than 30minutes away give the following:If BG 50-69 mg/dL: Give 12 grams : 3 glucose tabletsIf less than 50 mg/dL: Give 24 grams : 6 glucose tablets hydrOXYzine hydrochloride 25 MG Oral Tablet;25 MILLIGRAM BEDTIME PRN Quantity:1 Aquilino Erazo MD Start:3-Dqy-8866Gpy:22-Oct-19 Status:Discontinued Comments:[id number] Administration Instructions:VISTARIL/ATARAX CATEGORY X, FIRST TRIMESTER ONLY nitroglycerin 0.4 MG Sublingual Tablet [Nitrostat];0.4 MILLIGRAM Q5M PRN Quantity:1 Aquilino Erazo MD Start:8-Uqs-3827Szx:22-Oct-19 Status:Discontinued Comments:[id number] Administration Instructions:MAY REPEAT Q5MIN X 3 PRN CHEST PAIN. HOLD IF SBP < 90 perflutren;[id number] er Administration Instructions:10 MICROLITERS/KG PUSH OVER 30-60SECONDS, FOLLOWED BY A 10 ML SALINE FLUSH.Procedure use only Quantity:0 Aquilino Erazo MD Start:6-Pai-7844Fjp:23-Sep-19 Comments:[id number] Administration Instructions:10 MICROLITERS/KG PUSH OVER 30-60SECONDS, FOLLOWED BY A 10 ML SALINE FLUSH.Procedure use only NO JULIEN INHIBITORS;1 EACH ASDIR Quantity:1 Aquilino Erazo MD Start:2-Mqw-2960Fwp:22-Oct-19 Status:Discontinued Comments:[id number] Administration Instructions:NO JULIEN INHIBITORS FOR 36 HRS BEFORE STARTING ENTRESTO ORSTOPPING ENTRESTO THERAPYNO JULIEN INHIBITORS FOR 36 HRS BEFORE STARTING ENTRESTO ORSTOPPING ENTRESTO THERAPY aspirin 81 MG Chewable Tablet;324 MILLIGRAM X1ED Quantity:4 Natty Cardoso DO Start:0-Vmc-2249Srk:22-Sep-19 Comments:[id number] Administration Instructions:CHEWED Entresto 24 MG-26 MG;1 EACH PO BID Start:29-Apr-2023 Comments:1 EACH PO BID carvedilol 3.125 MG Oral Tablet [Coreg];3.125 MILLIGRAM PO BID MEALS Start:29-Apr-2023 Comments:3.125 MG PO BID MEALS spironolactone 25 MG Oral Tablet;25 MILLIGRAM PO DAILY Start:29-Apr-2023 Comments:25 MG PO DAILY omeprazole 40 MG Delayed Release Oral Capsule;40 MILLIGRAM PO DAILY Start:29-Apr-2023 Comments:40 MG PO DAILY atorvastatin 80 MG Oral Tablet;80 MILLIGRAM PO BEDTIME Start:29-Apr-2023 Comments:80 MG PO BEDTIME JARDIANCE;10 MILLIGRAM PO DAILY Start:29-Apr-2023 Comments:10 MG PO DAILY ticagrelor 90 MG Oral Tablet;90 MILLIGRAM PO BID Start:29-Apr-2023 Comments:90 MG PO BID Trulicity;3 MILLIGRAM SUBCUTANEOUS Q7D Start:29-Apr-2023 Comments:3 MG SUBQ Q7D carvedilol 25 MG Oral Tablet [Coreg];25 MILLIGRAM PO BID MEALS Start:03-Feb-2022 Status:Discontinued Comments:25 MG PO BID MEALS losartan potassium 25 MG Oral Tablet [Cozaar];25 MILLIGRAM PO DAILY Start:03-Feb-2022 Status:Discontinued Comments:25 MG PO DAILY rosuvastatin calcium 5 MG Oral Tablet;5 MILLIGRAM PO BEDTIME Start:03-Feb-2022 Status:Discontinued Comments:5 MG PO BEDTIME traMADol hydrochloride 50 MG Oral Tablet [Ultram];50 MILLIGRAM PO Q4H PRN Start:03-Feb-2022 Status:Discontinued Comments:50 MG PO Q4H PRN As Needed for P.R.N. PAIN clindamycin 300 MG Oral Capsule;300 MILLIGRAM PO QID Start:03-Feb-2022 Status:Discontinued Comments:300 MG PO QID insulin glargine 100 UNT/ML Injectable Solution [Lantus];45 UNITS SUBCUTANEOUS BID Start:03-Feb-2022 Comments:45 UNITS SUBQ BID aspirin 81 MG Chewable Tablet;81 MILLIGRAM PO DAILY Start:02-Aug-2018 Comments:81 MG PO DAILY atorvastatin 80 MG Oral Tablet;80 MILLIGRAM PO BEDTIME Start:02-Aug-2018 Status:Discontinued Comments:80 MG PO BEDTIME ticagrelor 90 MG Oral Tablet;90 MILLIGRAM PO BID Start:02-Aug-2018 Status:Discontinued Comments:90 MG PO BID metoprolol tartrate 25 MG Oral Tablet;25 MILLIGRAM PO BID Start:02-Aug-2018 Status:Discontinued Comments:25 MG PO BID 3 ML insulin aspart protamine, human 70 UNT/ML / insulin aspart, human 30 UNT/ML Pen Injector [NovoLOG Mix];1 UNITS SUBCUTANEOUS BID Start:02-Aug-2018 Status:Discontinued Comments:1 UNITS SUBQ BID insulin glargine 100 UNT/ML Injectable Solution [Lantus];40 UNITS SUBCUTANEOUS DAILY Start:01-Aug-2018 Status:Discontinued Comments:40 UNITS SUBQ DAILY Procedures CHEST AP OR PA ONLYResult:[facility] Name: [facility] Phys: Kristian Luz DO [address] [facility] : 1970 Age: 54 Sex: [place] [address] Acct: [id number] Loc: E.ED PHONE #: [phone] Exam Date: 09/21/2024 Status: REG ER FAX #: [phone] Radiology No: Unit No: [id number] EXAMS: [id number] XR CHEST AP OR PA ONLY Exam: XR CHEST 1 VIEW Indication:cp; CHEST TIGHTNESS;CARDIAC HX Comparison: 04/29/2023 Findings/ Impression: The lungs are clear. The heart and mediastinum are normal. Trachea is patent. No acute bony abnormality. Electronically signed by: Braulio ePna MD 09/21/2024 05:54 PM EDT at 1754 Reported and signed by: Braulio Marino MD CC: Kristian Luz DO Dictated Date/Time: 09/21/2024 (1753)Technologist: FEI CRUZ RT(R) Transcribed Date/Time: 09/21/2024 (1753)Certified Personal Finance Counselor: BENJIE Electronic Signature Date/Time: 09/21/2024 (1753)Printed Date/Time: 09/21/2024 (175) BATCH NO: N/A PAGE 1 Signed Report Date:21-Sep-2024 Status:Completed Social History Smoking Status Tobacco smoking consumption unknown Recorded: Never smoked tobacco Recorded: 03-Feb-2022 Never smoked tobacco Recorded: 01-Aug-2018 Never smoked tobacco Recorded: 03-Feb-2017 Never smoked tobacco Recorded: 25-Jan-2017 Results TROPI HIGH SENSITIVITY Ordered On:21-Sep-2024 19:34 TROPI HIGH GGVBNCBTAAF26lu/L Range:0-76ng/L Comments:99th percentileFemale: <51 ng/L Male: <76 ng/LPer the 4th universal definition of Myocardial infarction(NC), NC is defined as the presence of acute myocardialinjury (i.e., detection of a rise and/or fall of troponinvalues with at least 1 troponin > 99th percentile UpperReference Limit) in the setting of clinical evidence ofacute myocardial ischemia such as ischemic symptoms or newischemic EKG changes.High-sensitivity troponin results should be interpreted inconjunction with other diagnostic tests and clinicalinformation. CBC WITH DIFFERENTIAL Ordered On:21-Sep-2024 18:00 BASOPHIL #0.04{10_3/uL}(Normal) Range:0.01{10_3/uL}-0.08{10_3/uL} BASOPHIL %0.6%(Normal) Range:0.1 %-1.2% EOSINOPHIL #0.17{10_3/uL}(Normal) Range:0.04{10_3/uL}-0.54{10_3/uL} EOSINOPHIL %2.4%(Normal) Range:0 .8%-7% POPCGXTMPC48.1%(Normal) Range:40 .1%-51% XEZOMUVKOF34.6g/dL(Normal) Range :13.7g/dL-17.5g/dL IMMATURE GRANULOCYTE S #0.03{10_3/uL}(Normal) Range:0{10_3/uL}-0.03{10_3/uL} IMMATURE GRANULOCYTE S %0.4%(Normal) Range:0%-0.4% LYMPHOCYTE #1.42{10_3/uL}(Normal) Range:1.32{10_3/uL}-3.57{10_3/uL} LYMPHOCYTE %20.0%(Low) Range:21. 8%-53.1% MEAN CELL HGB27.7pg(Normal) Range:25.7pg-32.2pg MEAN CELL HGB DMTEVFOLYCQHN27.1g/dL(Norm al) Range:32.3g/dL-36.5g/dL MEAN CELL QFDCTE19.7fL(Normal) Range:79fL-92.2fL MONOCYTE #0.54{10_3/uL}(Normal) Range:0.3{10_3/uL}-0.82{10_3/uL} MONOCYTE %7.6%(Normal) Range:5.3 %-12.2% MEAN PLATELET VOLUME9.3fL(Low) Range:9.4fL-12.4fL NEUTROPHIL #4.90{10_3/uL}(Normal) Range:1.78{10_3/uL}-5.38{10_3/uL} NEUTROPHIL %69.0%(High) Range:34 %-67.9% NUCLEATED RED BLOOD CELL #0.00{10_3/uL}(Normal) Range:0{10_3/uL}-0.18{10_3/uL} NUCLEATED RED BLOOD CELL %0.0%(Normal) Range:0%-0.2% PLATELET ONYSD547{10_3/uL}(Normal) Range:150{10_3/uL}-400{10_3/uL} RED BLOOD CELL5.27{10_6/uL}(Normal) Range:4.63{10_6/uL}-6.08{10_6/uL} RED CELL DISTRIBUTIO N WIDTH12.9%(Normal) Range:11.6%-14.4% WHITE BLOOD CELL7.1{10_3/uL}(Normal) Range:4{10_3/uL}-10.5{10_3/uL} COMPREHENSIVE METABOLIC PANEL Ordered On:21-Sep-2024 18:16 ALBUMIN4.0g/dL(Normal) Range:3. 4g/dL-5g/dL ALKALINE PHOSPHATASE TOTAL93[IU]/L(Normal) Range:46[IU]/L-116[IU]/L SGPT/ALT23[IU]/L(Normal) Range:1 4[IU]/L-63[IU]/L SGOT/AST15[IU]/L(Normal) Range:1 5[IU]/L-37[IU]/L BILIRUBIN TOTAL0.7mg/dL(Normal) Range:0.2mg/dL-1mg/dL BUN/CREATININE RATIO20.4{ratio}(Normal) Range:5{ratio}-22{ratio} BLOOD UREA EHZQBWCF43fd/dL(High) Range:7mg/dL-18mg/dL CALCIUM9.2mg/dL(Normal) Range:8. 5mg/dL-10.1mg/dL CKRJEFQX915rwkw/L(Normal) Range: 98mmol/L-107mmol/L CARBON AHLHKYX43mmti/L(Normal) Range:21mmol/L-32mmol/L CREATININE0.93mg/dL( Normal ) Range:0.7mg/dL-1.3mg/dL ANION RUT5vqzz/L(Normal) Range:8 mmol/L-17mmol/L eGFR> 90 Range:90-0 Comments:The eGFR is calculated using the 2020 CKD-EPI Cr equation,which includes serum Cr, age, and sex but does not include arace coefficient. The National Kidney Foundation recommendsthis formula for calculating eGFR in adults. GFR will notcalculate if sex is unknown or patient age is <18 years. Ref range: >/=90mL/min/1.73m2 HBENEEO068jl/dL(High) Range:74mg /dL-106mg/dL POTASSIUM4.0mmol/L(Normal) Range :3.5mmol/L-5.1mmol/L LTRNUU871xrrx/L(Normal) Range:13 6mmol/L-145mmol/L TOTAL PROTEIN8.0g/dL(Normal) Range:6.4g/dL-8.2g/dL ALBUMIN/GLOBULIN RATIO1.0{ratio}(Normal) Range:1{ratio}-2{ratio} Corrected Calcium9.2(Normal) Range:8.5-10.1 Comments:Calcium corrected for Albumin. GLOBULIN4.0g/dL(High) Range:1.9g /dL-3.7g/dL TROPI HIGH SENSITIVITY Ordered On:21-Sep-2024 18:16 TROPI HIGH FBAIEXMICKB54zk/L Range:0-76ng/L Comments:99th percentileFemale: <51 ng/L Male: <76 ng/LPer the 4th universal definition of Myocardial infarction(NC), NC is defined as the presence of acute myocardialinjury (i.e., detection of a rise and/or fall of troponinvalues with at least 1 troponin > 99th percentile UpperReference Limit) in the setting of clinical evidence ofacute myocardial ischemia such as ischemic symptoms or newischemic EKG changes.High-sensitivity troponin results should be interpreted inconjunction with other diagnostic tests and clinicalinformation. PROTHROMBIN TIME PROFILE Ordered On:21-Sep-2024 19:00 INTERNATIONAL NORMAL RATIO1.1(Normal) Range:0.8-1.1 Comments:Use INR for clinical decision makingRecommended Therapeutic Range:INDICATION TARGETED INR RANGEProphylaxis in high risk surgery 2.0-2.5Treatment of DVT or Pulmonary Embolism 2.0-3.0Prophylaxis Systemic Embolism inCardiac Disease 2.0-3.0Mechanical Prosthetic Heart ValveRecurrent Systemic Embolism 2.5-3.5 PROTHROMBIN TIME12.9s(High) Range:10s-12.8s ALCOHOL (ETHANOL) BLOOD Ordered On:21-Sep-2024 Co mments:Order Details: add to er labs 21-Sep-2024 19:59 ALCOHOL (ETHANOL) BL OOD< 3.0mg/dL(Normal) Range:0mg/dL-100mg/dL THYROID STIMULATING HORMONE Ordered On:21-Sep-2024 20:00 THYROID STIMULATING HORMONE0.53uU/mL(Normal) Range:0.36uU/mL-3.74uU/mL D-DIMER QUANTITATIVE Ordered On:21-Sep-2024 20:07 D-DIMER RUUUARXRKVIE344{ng/mLFEU}( Normal) Range:0{ng/mLFEU}-529{ng/mLFEU} Comments:When excluding VTE, the cutoff value is <500 ng/mL FEU. Forall other events the cutoff value is <529 ng/mL FEU.This test is a Latex Enhanced Immunoassay which is FDAapproved for use in conjunction with a Clinical PretestProbability (PTP) Assessment model to exclude venousthromboembolism (VTE) for patients suspected of deep venousthrombosis (DVT) and pulmonary embolism (PE). GLYCOSYLATED HEMOGLOBIN (A1C) Ordered On:21-Sep-2024 11:37 GLYCOSYLATED HEMOGLO BIN (A1C)7.4%(Abnormal) Range:0-5.7% Comments:A1C < 5.7% - UmycviP4J 5.7%-6.4% - For screening of fkwgmspbqrgT7A > OR = 6.5 - DiabetesNote: New above reference intervals follow the ADArecommendations Vital Signs 21-Sep-2024 19:31 BP Hjtqcsta284xh[Hg] Comments:11 6 BP Zxuruoxcf31ad[Hg] Comments:81 21-Sep-2024 19:30 Pulse81/min Comments:81 Respiratory Rate12/min Comments: 12 O2 SAT97% Comments:97 21-Sep-2024 19:00 Pulse84/min Comments:84 Respiratory Rate21/min Comments: 21 O2 SAT94% Comments:94 BP Tbaihytx678cz[Hg] Comments:10 5 BP Ectiggcgg64ze[Hg] Comments:68 21-Sep-2024 18:30 Pulse81/min Comments:81 Respiratory Rate18/min Comments: 18 O2 SAT92% Comments:92 BP Hoxrrtdf563yi[Hg] Comments:10 6 BP Xqwrcyjzj29om[Hg] Comments:76 21-Sep-2024 18:14 O2 SAT99% Comments:99 21-Sep-2024 18:05 Pulse83/min Comments:83 O2 SAT93% Comments:93 21-Sep-2024 18:04 BP Pfzwstkn037kq[Hg] Comments:11 5 BP Hmegssobq72aq[Hg] Comments:72 21-Sep-2024 18:00 Pulse83/min Comments:83 Respiratory Rate19/min Comments: 19 21-Sep-2024 17:55 Pulse90/min Comments:90 Respiratory Rate24/min Comments: 24 O2 SAT94% Comments:94 21-Sep-2024 17:50 Pulse89/min Comments:89 Respiratory Rate21/min Comments: 21 O2 SAT97% Comments:97 21-Sep-2024 17:45 Pulse89/min Comments:89 Respiratory Rate27/min Comments: 27 O2 SAT96% Comments:96 21-Sep-2024 17:40 Pulse87/min Comments:87 Respiratory Rate19/min Comments: 19 O2 SAT97% Comments:97 21-Sep-2024 17:35 Pulse90/min Comments:90 Respiratory Rate11/min Comments: 11 O2 SAT98% Comments:98 21-Sep-2024 17:30 O2 SAT96% Comments:96 BP Tyagofbx044mm[Hg] Comments:11 9 BP Bqodsuord97nj[Hg] Comments:74 21-Sep-2024 17:25 O2 SAT97% Comments:97 21-Sep-2024 17:24 BP Qomyhqww505pl[Hg] Comments:11 4 BP Lzmkwtzbg82tm[Hg] Comments:62 21-Sep-2024 17:13 Sgvmldrhsfw08.6f Comments:98.6 Pulse90/min Comments:90 Respiratory Rate16/min Comments: 16 O2 SAT97% Comments:97 BP Iwvtoflt111ui[Hg] Comments:11 4 BP Vtkgiuovv16sg[Hg] Comments:78 Oxygen delivery devices: Comment s:Room air Height6.1095952[ft_us] Comments: 6 Oryddw898qc Comments:125.000 Encounters Inpatient encounter Encounter Reason:CHEST PAIN, ACS RO Encounter Diagnosis:Essential (primary) hypertension,Atherosclerotic heart disease of [place] coronary artery without angina pectoris,Type 2 diabetes mellitus without complications,Hyperlipidemia, unspecified,snf (current) use of insulin,rodent exterminator (current) use of oral hypoglycemic drugs,LNG TRM (CRNT) USE INJECTABLE NON-INSULIN ANTIDIABETIC DRUGS,snf (current) use of aspirin,rodent exterminator (current) use of antithrombotics/antiplatelets,Presence of coronary angioplasty implant and graft,Procedure and treatment not carried out because of patient's decision for other reasons,Other chest pain 21-Sep-2024 17:64Nw3-Lhi-0948 19:52 [facility] Discharge Disposition:Left against medical advice or discontinued care Natty Cardoso FC-5-Xze21-Sep-2024 [facility] ([facility])EMERGENCY PROVIDER REPORTREPORT#:[id number] REPORT STATUS: SignedDATE:09/21/24 TIME: ATIENT: ANGIEFLOR UNIT #: [id number]#: [id number] [address]DOB: [birth year] AGE: 54 SEX: M PCP PHYS: No Primary or Family PhysicianSERVICE AUTHOR: Kristian Luz SRV REP SRV TM: 1824ALL edits or amendments must be made on the electronic/computer chartHPI-Chest Pain 40 and OverFree Text HPI NotesFree Text HPI Forhi58-hcxs-jph male with chest pain.GeneralInitial Greet Date/Time 09/21/24 1729PresentationChief Complaint Chest painSudden in Onset? No)( Migration/Movement NoneRisk-Chest Pain 40 and OverRisk Stratification)( Coronary Artery Disease Risk factors reviewed)( Thoracic Aortic Dissection Risk factors reviewed)( Pulmonary Embolism Risk factors reviewed)( HEART for MACE )( HEART for MACE Response Value History Mod index of suspicion 1 ECG Interpretation Nonspec repol disturb 1 Age Age 45 - 65 1 Risk Factors for CAD 3+ CAD risk factors 2 Troponin < or = to NL troponin 0 Total 5Review of SystemsFree Text ROS NotesFree Text ROS Notes Positive Review of Systems are in BOLD text, otherwise all documented beloware negative:Constitutional: Chills, Fever.Eyes: Blurry vision, Diplopia.Ears/Nose/Throat: Earache, Sore throat.Respiratory: Cough, Shortness of breath.Cardiovascular: Chest pain, Palpitations.GI: Abdominal pain, nausea, vomiting, diarrhea.: dysuria, frequent urinationMusculoskeletal: Extremity pain, Extremity swelling.Skin: Rash, Swelling.Allergy/Immun: Itching, Sneezing.Neurologic: Dizziness, Headache.Past Medical History - AdultStated Complaint CHEST TIGHTNESS;CARDIAC HXAllergiesCoded Allergies:metoprolol (02/03/22)Home MedicationsActive ScriptsAspirin Chewable (Baby Aspirin) 81 MG PO DAILY Aspirin Chewable (Baby Aspirin) 81 MG PO DAILY #1 BOTTLE Prov: 08/02/18Reported MedicationsInsulin Glargine (Lantus) 45 UNITS SUBQ BIDAtorvastatin (Lipitor) 80 MG PO BEDTIMEEmpagliflozin (Jardiance) 10 MG PO DAILYOmeprazole (PriLOSEC) 40 MG PO DAILYTICAGRELOR (BRILINTA) 90 MG PO BIDCarvediloL (Coreg) 3.125 MG PO BID MEALSSPIRONOLACTONE (ALDACTONE) 25 MG PO DAILYSacubitril/Valsartan (Entresto 24 MG-26 MG) 1 EACH PO BIDDulaglutide (Trulicity) 3 MG SUBQ A9VPdqwxmbybn Suicide Risk (nurs) No riskPast Medical History:Reports: Coronary artery disease ( HAS A STENT), Diabetes mellitus,Hypertension.Additional Medical HistoryDyslipidemiaPast Surgical History:Denies: Abdominal surgery.Additional Surgical HistoryCoronary artery stents o7Zyicri History:Reports: Diabetes, Hypertension.Alcohol Use Denies EtOH useDrug Use Denies recreational drugsSmoking status for patients 13 years old or older: Never SmokerOther Social History Primary family support ( LIVES WITH HIS MOTHER), Goodsocial supportOccupationNOT WORKINGPhysical ExamVital SignsVital SignsFirst Documented: Result Date Time Pulse Ox 97 09/21 1712 B/P 114/78 09/21 1712 O2 Delivery Room air 09/21 1712 Temp 37.0 09/21 1712 Pulse 90 09/21 1712 Resp 16 09/21 171 B/P Mean 78 09/21 1724Last Documented: Result Date Time Pulse Ox 94 09/21 1900 B/P 105/68 09/21 190 B/P Mean 81 09/21 190 Pulse 84 09/21 1900 Resp 21 09/21 190 O2 Delivery Room air 09/21 1712 Temp 37.0 09/21 1713Review of Vital Signs ReviewedFree Text PE NotesFree Text PE NotesGeneral Awake, alert, cooperative, nontoxic appearingHead Normocephalic, atraumaticEyes PERRLEars/Nose/Throat Airway patent, Mucous membranes moistNeck full ROM, no JVDResp/Chest breath sounds CTA bilaterally, no respiratory distressCardiovascular Heart rate normal, Regular rhythmAbdomen/GI Soft, Non- tender, no guarding, no rebound, BS normoactive, no distention, nopulsitile massBack Full range of motion, no CVA tendernessLower Extrem No swelling, 2+ bilateral pedal pulses, sensation intactSkin Normal for ethnicity, Warm, DryNeurologic Oriented X3, Speech clear, moves all extremitiesInterpretation DiagnosticsLab Results InterpretationResultsLaboratory Tests09/21/241753:[Embedded Image Not Available]Laboratory Tests: 09/21 09/21 09/21 09/21 1900 1754 1754 1754 Chemistry Sodium (136 - 145 mmol/L) 137 Potassium (3.5 - 5.1 mmol/L) 4.0 Chloride (98 - 107 mmol/L) 102 Carbon Dioxide (21 - 32 mmol/L) 27 Anion Gap (8 - 17 mmol/L) 8 BUN (7 - 18 mg/dl) 19 H Creatinine (0.70 - 1.30 mg/dl) 0.93 Est GFR (CKD-EPI 2020) (>90.0) > 90 BUN/Creatinine Ratio (5 - 22 ratio) 20.4 Glucose (74 - 106 mg/dl) 117 H Hemoglobin A1c (<5.7 %) 7.4 H Calcium (8.5 - 10.1 mg/dL) 9.2 Corrected Calcium (8.5 - 10.1) 9.2 Total Bilirubin (0.2 - 1.0 mg/dl) 0.7 AST (15 - 37 IU/L) 15 ALT (14 - 63 IU/L) 23 Alkaline Phosphatase (46 - 116 IU/L) 93 Troponin I High Sens (<76 ng/L) 15 11 Total Protein (6.4 - 8.2 g/dl) 8.0 Albumin (3.4 - 5.0 g/dl) 4.0 Globulin (1.9 - 3.7 g/dl) 4.0 H Albumin/Globulin Ratio (1.0 - 2.0 ratio) 1.0 TSH (0.36 - 3.74 uIU/mL) 0.53 Coagulation PT (10.0 - 12.8 Seconds) 12.9 H INR (0.8 - 1.1) 1.1 D-Dimer Quant (PE/DVT) (0 - 529 ng/mLFEU) 256 Hematology WBC (4.0 - 10.5 10 3/UL) 7.1 RBC (4.63 - 6.08 10 6/uL) 5.27 Hgb (13.7 - 17.5 g/dL) 14.6 Hct (40.1 - 51.0 %) 44.1 MCV (79.0 - 92.2 fl) 83.7 MCH (25.7 - 32.2 pg) 27.7 MCHC (32.3 - 36.5 g/dL) 33.1 RDW (11.6 - 14.4 %) 12.9 Plt Count (150 - 400 10 3/uL) 215 MPV (9.4 - 12.4 fL) 9.3 L Immature Gran % (0.0 - 0.4 %) 0.4 Neutrophils % (34.0 - 67.9 %) 69.0 H Lymphocytes % (21.8 - 53.1 %) 20.0 L Monocytes % (5.3 - 12.2 %) 7.6 Eosinophils % (0.8 - 7.0 %) 2.4 Basophils % (0.1 - 1.2 %) 0.6 Nucleated RBC % (0.0 - 0.2 %) 0.0 Immature Gran # (0.00 - 0.03 10 3/uL) 0.03 Neutrophils # (1.78 - 5.38 10 3/uL) 4.90 Lymphocytes # (1.32 - 3.57 10 3/uL) 1.42 Monocytes # (0.3 - 0.82 10 3/uL) 0.54 Eosinophils # (0.04 - 0.54 10 3/uL) 0.17 Basophils # (0.01 - 0.08 10 3/uL) 0.04 Nucleated RBCs # (0.00 - 0.18 10 3/uL) 0.00 Toxicology Serum Alcohol (0 - 100 mg/dl) < 3.0Recent Impressions:RADIOLOGY - XR CHEST AP OR PA ONLY 09/21 1734 Report Impression - Status: SIGNED Entered: 09/21/2024 1756Impression: The lungs are clear. The heart and mediastinum arenormal. Trachea is patent. No acute bony abnormality.Electronically signed by: Braulio Pena MD 09/21/2024 05:54PM EDT RPWorkstation: [id number] By: Cayla - Braulio Marino MDECG #1 InterpretationText/Dict NoteNormal sinus rhythm, incomplete right bundle-branch block, normal axis, no S-TElevation Myocardial InfarctionRe-Evaluation MDMRe-Evaluation/Progress #1Text/Dict Note patient apparently wants to sign out against medical advice. Told him he madan have permanent disability or loss of current lifestyle still wants to leave.ED CourseMedication(s) OrderedMedication(s) Ordered:Cardiovascular Drugs Sig/Amber Start time Last Medication Dose Route Stop Time Status Admin Atorvastatin Calcium 40 MG BEDTIME 09/21 2099 DC PO 10/21 2058 Nitroglycerin 0.4 MG Q5M PRN PRN 09/21 1914 AC SL 10/21 1914Central Nervous System Agents Sig/Amber Start time Last Medication Dose Route Stop Time Status Admin Aspirin 81 MG DAILY 09/22 0900 AC PO 10/22 0859 Aspirin 324 MG X1ED STA 09/21 1729 DC 09/21 PO 09/21 1730 1801Diagnostic Agents Sig/Amber Start time Last Medication Dose Route Stop Time Status Admin Perflutren Lipid See Dose PROCEDURE PRN 09/21 1914 AC Microsphere Insts (1) IV 09/22 07Dose Instructions:(1)Perflutren Lipid Microsphere: 10 MICROLITERS/KG PUSH OVER 30-60 SECONDS, FOLLOWED BY A 10 ML SALINE FLUSH.Differential Diagnosis)( Differential Diagnosis Acute coronary syndrome, Acute myocardial infarct,Chest painPatient Discharge DepartureVital Signs/ConditionVital SignsFirst Documented: Result Date Time Pulse Ox 97 06/ 1713 B/P 114/78 06/05 1713 O2 Delivery Room air / 1713 Temp 37.0 06/ 1713 Pulse 90 06/ 1713 Resp 16 / 1713 B/P Mean 78 /05 1724Last Documented: Result Date Time Pulse Ox 94 06/05 1900 B/P 105/68 06/05 1900 B/P Mean 81 06/05 1900 Pulse 84 06/05 1900 Resp 21 06/05 1900 O2 Delivery Room air / 1713 Temp 37.0 06/05 1713All vital signs available at the time of this entry have been reviewed.Clinical ImpressionClinical ImpressionPrimary Impression: Chest painDisposition DecisionHospitalize Request Time 185 Request Date 09/21/24 )( Accepts Hospitalization Yes )( Accepted Time 1853 )( Accepted Date 09/21/24Discharge/Care PlanReferralsProvider Referral: No Primary or Family Physician at 1721RPT#:[id number] OF REPORT
--- NOTE | ~2024-10-04 | XR_ITS ---
EXAMINATION: XR ELBOW, RIGHT CLINICAL INFORMATION: M25.421 - Effusion, right elbow COMPARISON: None available. TECHNIQUE: AP, lateral, and oblique views of the right elbow. FINDINGS: No acute cortical disruption or malalignment. No lytic or blastic lesions. No gross joint effusion. Well-corticated calcification lateral to the medial epicondyles of the right humerus. XR/XR elbow RT 2V IMPRESSION: No acute fracture or dislocation. No overt joint effusion. Electronically signed by: Josemanuel Marquez MD 10/04/2024 01:56 PM EDT
[2024-10-04 12:25] LABS: Prostate Specific Antigen 0.22 ng/mL (<0.05-4.0)
[2024-10-04 13:43] LABS: Hemoglobin 14.3 g/dl (14.0-18.0); Mean Corpuscular HGB Conc 32.5 g/dl (31.0-36.0); Mean Corpuscular Hemoglobin 28.3 pg (27.0-33.0); Mean Corpuscular Volume 87.1 fL (80.0-98.0); Mean Platelet Volume 9.8 fL (9.4-12.4); Platelet Count 197 X10*3/uL (160-400); Red Blood Count 5.05 X10*6/uL (4.60-5.80); White Blood Count 6.3 X10*3/uL (4.8-10.8)
[2024-10-04 14:14] LABS: Alanine Aminotransferase 27 U/L (0-40); Albumin Level 4.4 g/dL (3.5-5.0); Alkaline Phosphatase 84 U/L (39-117); Anion Gap 9 (12-20); Aspartate Amino Transferase 22 U/L (5-37); Bilirubin Total 0.6 mg/dL (0.0-1.0); Blood Urea Nitrogen 20 mg/dL (9-16); Calcium 9.1 mg/dL (8.4-10.2); Carbon Dioxide 26 mmol/L (22-29); Chloride 108 mmol/L (96-108); Cholesterol 116 mg/dL (<200); Estimated Glomerular Filt Rate > 60; Glucose Fasting 181 mg/dL (60-99); HDL Cholesterol 34 mg/dL (>40); LDL Cholesterol Calculated 60 mg/dL (<100); Potassium 4.3 mmol/L (3.3-5.1); Sodium 139 mmol/L (135-145); Total Protein 7.5 g/dL (6.5-8.0); Triglycerides 112 mg/dL (<150)
[2024-10-04 14:26] LABS: Prostate Specific Antigen Scr 0.21 ng/mL (<0.05-4.0)
[2024-10-04 14:31] LABS: Creatinine Urine 271.99 mg/dL; Microalbum/Creatinine Ratio Ur 29.7 ug/mg cr (<30)
== END 2024-10-04 10:54 | disposition home or self-care (01) ==
LOC: HO.XRAY 10:53
PROVIDERS: Absent Provider Physician Assistant; PCP Physician Assistant; Visit Provider Nurse Practitioner Family
DX: E11.69 Type 2 diabetes mellitus with other specified complication (principal); N52.1 Erectile dysfunction due to diseases classified elsewhere; E11.42 Type 2 diabetes mellitus with diabetic polyneuropathy; I25.118 Atherosclerotic heart disease of native coronary artery with other forms of angina pectoris; N40.0 Benign prostatic hyperplasia without lower urinary tract symptoms; I10 Essential (primary) hypertension; E78.5 Hyperlipidemia, unspecified; G47.33 Obstructive sleep apnea (adult) (pediatric); M25.421 Effusion, right elbow; G56.02 Carpal tunnel syndrome, left upper limb; Z79.85 Long-term (current) use of injectable non-insulin antidiabetic drugs
CPT/HCPCS: 36415; 73070; 80053; 80061; 81003; 82043; 82570; 83036; 84153; 85027; 96127; 99212

== ENCOUNTER 2024-10-04 11:17 | Outpatient (AMB) | payer OTHER, SELFPAY ==
[2024-10-04 11:23] VITALS: BP 104/70; PULSE 96; O2SAT 96; BMI 35.3
--- NOTE | 2024-10-04 11:23 | MHC.PC.OV ---
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 Accompanied by: Self / Same As Patient Allergies metoprolol (METOPROLOL) Allergy (Unknown, Verified 10/04/24 11:51) UNKNOWN Medication List - Last Reconciled 10/04/24 by Will De La Torre PA-C atorvastatin 80 mg PO BEDTIME blood sugar diagnostic (FreeStyle Lite Strips) As directed three times a day blood-glucose meter (FreeStyle Lite Meter kit) As directed to test 3 times per day blood-glucose sensor (FreeStyle Rod 3 Sensor device) As directed blood-glucose,domain architect,cont (FreeStyle Rod 3 Ladd) As directed carvedilol 3.125 mg PO BID 90 days clopidogrel 75 mg PO DAILY CPAP (CPAP Machine/Device) As directed cyclobenzaprine 10 mg PO BID 7 days dulaglutide (Trulicity) 3 mg (0.5 mL) subcut QWEEK 90 days empagliflozin (Jardiance) 10 mg PO DAILY 90 days ezetimibe 10 mg PO DAILY gabapentin 300 mg PO DAILY 15 days hydroxyzine HCl 20 mg (2 x 10 mg) PO BEDTIME 15 days lancets (FreeStyle Lancets) As directed three time a day Lantus Solostar U-100 Insulin (insulin glargine) 45 units (0.45 mL) subcut BID 90 days NS omeprazole 40 mg PO DAILY pen needle, diabetic As directed pen needle, diabetic (Comfort EZ Pen [place]) TWICE A DAY sacubitril-valsartan 49-51 mg 1 tab PO BID spironolactone 25 mg PO DAILY tadalafil (Cialis) 20 mg PO DAILY PRN 90 days tadalafil 5 mg PO DAILY 90 days Tobacco use date assessed: 07/04/24 Dental Screening Dental Screen Date: 07/04/24 HPI f/u DMII/ CAD- neuropathy HPI Details Patient is a 54-year-old male here today for a follow-up visit. Patient has a past medical history significant for type 2 diabetes, coronary artery disease with stent x3, ischemic cardiomyopathy, hypertension, hyperlipidemia, morbid obesity, obstructive sleep apnea. Concern--> he reports having a few episodes of mid chest pain since he has started clopidogrel, was evaluated at a local ER while vacationing in [place] reports all testing was negative. Median nerve neuropathy: Has followed up with Orthopedics here in [place] and is considering carpal tunnel release surgery. He is concerned with the success rate for this surgery. 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 The patient has been using wrist splints at night and has tried physical therapy, but symptoms persist. A previous nerve conduction study indicated mild compression of the median nerve, consistent with carpal tunnel syndrome. Unfortunately his EMG was about 2 years ago will likely need new EMG testing for further evaluation. We did discuss the possibility of doing occupational therapy to help his bilateral hand strength and dexterity though he is still considering . Coronary artery disease/ heart failure with reduced ejection fraction: Recently had stents placed in his coronary arteries in 2022. Continues to follow cardiology. Also does have heart failure and does managed with spironolactone an entresto. His Brilinta was transitioned to clopidogrel His heart failure seems well compensated Recently had his interested though increased for better blood pressure control. As far as his heart failure has been well controlled. Most recent echocardiogram does have slightly reduced ejection fraction at 35-40%. .. Type 2 diabetes: Today's A1c improved at 7.3 from > 8 . He has been able to lose weight since last office visit He does admit to dietary indiscretion as of late due to increased stress in his life. He promises to get back on track with his diabetic diet. Patient's most recent fasting blood sugar much improved.. He continues on Trulicity 3 mg and long-acting insulin 45 units b.i.d. . His type 2 diabetes is complicated by neuropathy particular in his lower extremities. He does report having burning and numbness sensation bilateral feet. .. Obstructive sleep apnea ( severe): Followed by pulmonology ( Dr Mckeon). Tries to be compliant with daily use of his CPAP machine [facility] Medical History STEMI (ST elevation myocardial infarction) Nocturnal hypoxemia Infection of penis History of torn meniscus of right knee CAD (coronary artery disease) Type 2 diabetes mellitus with diabetic polyneuropathy Essential hypertension Hyperlipidemia LDL goal <70 Obesity due to excess calories Surgical History Hx of cardiac catheterization History of lateral meniscus repair of right knee Family History Father No problems noted. Mother No problems noted. Son Diabetes mellitus type 1 Social History Household Members: Family Housing: Apartment Alcohol intake: current Alcohol intake frequency: does not drink Patient Tobacco Use Status: Never used Tobacco e-Cigarette/Vaping Use: Never Used Second Hand Smoke Exposure: No service: No Current occupational status: unemployed Cognitive needs: No Hearing needs: No Vision needs: Yes (Glasses) Questionnaire PHQ-9 Over the last 2 weeks, how often have you been bothered by any of the following problems? 1. Little interest or pleasure in doing things: not at all 2. Feeling down, depressed, or hopeless: not at all 3. Trouble falling or staying asleep, or sleeping too much: nearly every day 4. Feeling tired or having little energy: nearly every day 5. Poor appetite or overeating: not at all 6. Feeling bad about yourself - or that you are a failure or have let yourself or your family down: not at all 7. Trouble concentrating on things, such as reading the newspaper or watching television: not at all 8. Moving or speaking so slowly that other people could have noticed. Or the opposite - being so fidgety or restless that you have been moving around a lot more than usual: not at all 9. Thoughts that you would be better off or of hurting yourself in some way: not at all Total score: 6 Depression Screening Interpretation: Positive Depression Screening Follow-up: Existing condition Depression Screening Done: Yes 05198 - PHQ-9 Billing: Yes Source: Developed by Drs. David Celis, Jazmin Christensen, Clif Oconnell and colleagues, with an educational keyanna from [employer]. Thrive Questionnaire Date Thrive assessed: 07/04/24 I am a: Patient What is your living situation today?: I have a steady place to live Within the past 12 months, did the food you bought not last and you didn't have the money to get more?: Never true Within the past 12 months, did you worry whether your food would run out before you got money to buy more?: Never true Do you have trouble paying for medicines?: No Do you have trouble getting transportation to medical appointments?: Yes Do you have trouble paying your heating and electricity bill?: Yes Do you have trouble taking care of your child, family member or friend?: No Do you have trouble with day-to-day activities such as bathing, preparing meals, shopping, managing finances, etc.?: No Are you currently unemployed and looking for a job?: Yes Are you interested in more education?: No Please select the resources that you would like help with: None Currently or been in a relationship where the following occur: No concerns reported THRIVE Score: 2 AUDIT C Alcohol Use Questionnaire (AUDIT-C) 1. How often do you have a drink containing alcohol?: Never Total Score: 0 LLOYD-7 AMB Questionnaire LLOYD-7 Date LLOYD - 7 assessed: 07/04/24 Feeling nervous, anxious, or on edge: 0 = Not at all Not being able to stop or control worryin = Nearly every day Worrying too much about different things: 0 = Not at all Trouble relaxin = More than half the days Being so restless that it is hard to sit still: 2 = More than half the days Becoming easily annoyed or irritable: 0 = Not at all Feeling afraid as if something awful might happen: 3 = Nearly every day Total LLOYD-7 score (0-4 normal; 5-9 mild; 10-14 moderate; 15-21 severe): 10 Source: Developed by Drs. David Celis, Jazmin Christensen, Clif Oconnell and colleagues, with an educational keyanna from [employer]. LLOYD-7 Assessment Billing LLOYD-7 Assessment Tool: LLOYD-7 Assessment 56132 Review of Systems Const Denies headache(s) Eyes Denies loss of vision ENT Denies vertigo, Denies dizziness, Denies headache(s) and Denies sore throat Card Denies chest pain, Denies leg edema and Denies lightheadedness Resp Denies cough, Denies hemoptysis and Denies wheezing GI Denies abdominal pain, Denies melena, Denies constipation, Denies diarrhea and Denies vomiting Denies dysuria, Denies urinary frequency and Denies urinary urgency Musc Denies arthralgias, Denies joint swelling, Denies numbness and Denies tingling Neuro Denies Abnormal speech present, Denies behavioral changes, Denies vertigo, Denies dizziness, Denies headache(s), Denies loss of vision, Denies memory loss, Denies numbness and Denies tingling Psych Denies anxiety, Denies behavioral changes, Denies depression, Denies memory loss and Denies panic attacks Timmy/Lymph Denies easy bleeding and Denies easy bruising Aller/Immun Denies wheezing Physical exam (Primary Care) Vital Signs: Last Vital Signs Pulse 96 10/04/24 11:23 BP 104/70 10/04/24 11:23 Pulse Ox 96 10/04/24 11:23 Oxygen Delivery Method Room Air 10/04/24 11:23 BMI result Body Mass Index 35.3 Tobacco/Smoking Status: Tobacco use Status Tobacco use date assessed 07/04/24 10/04/24 11:32 Patient Tobacco Use Status Never used Tobacco 10/04/24 11:32 e-Cigarette/Vaping Use Never Used 10/04/24 11:32 PHQ-9: PHQ-9 Score PHQ-9: Total score 6 10/04/24 11:32 Depression Screening Interpretation: Positive Depression Screening Follow-up: Existing condition Thrive Assessment: Date of Thrive Assessment Date Thrive assessed 07/04/24 10/04/24 11:32 Currently or been in a relationship where the following occur: No concerns reported Const General: healthy appearing, no acute distress, alert and awake Nutritional Appearance: well nourished Orientation/consciousness: oriented to person, oriented to place and oriented to time [facility] Ears: TM's normal bilaterally General nose exam: Normal nasal mucous membranes and turbinates present Eyes Conjunctivae: conjunctivae normal Sclerae: sclerae normal Pupils: Equal, round and reactive pupils present Neck Neck: Yes no lymphadenopathy and Yes no JVD Thyroid: Thyroid normal Carotids: no bruits Resp Effort & Inspection: normal respiratory effort and not tachypneic Auscultation: no crackles, no rales, no rhonchi and no wheezes Cardio Rate: regular rate Rhythm: regular rhythm Heart sounds: no murmurs and normal S1 and S2 GI Palpation (GI): Soft to palpation, nontender, no hepatomegaly and no splenomegaly Auscultation: normal bowel sounds Skin General skin exam: no rashes or lesions noted and dry skin Neuro General: oriented to person, oriented to place and oriented to time Cranial nerves: Yes Equal, round and reactive pupils present Speech: No Abnormal speech present Gait exam (Neuro): Normal gait present Motor exam (neuro): no tremor noted Extrem Other: RIGHT ELBOW: FULL RANGE OF MOTION, NOTABLY SWOLLEN COMPARED TO LEFT ELBOW, WARM TO PALPATION Right upper extremity: full ROM Left upper extremity: full ROM Right lower extremity: full ROM; no edema Left lower extremity: full ROM; no edema Psych Mental Status: mental status grossly normal Speech and movement: Normal speech and movement present Affect: normal affect Attitude: cooperative Thought process: Normal thought process present Coding Level of Care Code Est Pt Level 4 (37209) Diagnoses Type 2 diabetes mellitus with diabetic polyneuropathy, without long-term current use of insulin E11.42 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 transplanted heart: [place] heart Associated angina: with stable angina Benign prostatic hyperplasia without lower urinary tract symptoms N40.0 Lower urinary tract symptom presence: symptoms absent Essential hypertension I10 Obstructive sleep apnea G47.33 Hyperlipidemia LDL goal <70 E78.5 Diabetic polyneuropathy associated with diabetes mellitus due to underlying condition E08.42 Diabetes mellitus complication detail: diabetic polyneuropathy Swelling of right elbow M25.421 Left carpal tunnel syndrome G56.02 Additional Codes PHQ-9 - 55451 - PHQ-9 Billing: Yes ([id number]) LLOYD-7 Assessment Billing - LLOYD-7 Assessment Tool: LLOYD-7 Assessment [id number] ([id number]) Assessment & Plan Assessment & Plan (1) DMII (diabetes mellitus, type 2): Code(s): E11.9 - Type 2 diabetes mellitus without complications Category: Medical Qualifiers: Diabetes mellitus computer terminal operator insulin use: without computer terminal operator use Diabetes mellitus complication status: with neurologic complications Diabetes mellitus complication detail: with polyneuropathy Qualified Code(s): E11.42 - Type 2 diabetes mellitus with diabetic polyneuropathy Plan: Patient's type 2 diabetes suboptimally controlled today's A1c improved 7.6. He reports he has been more diligent with his diet and has lost weight since last office visit. He continues with Trulicity 3 mg weekly, insulin therapy. . Will work extensively on diabetic diet Goal A1c is to be below 7.0 (2) CAD (coronary artery disease): Code(s): I25.10 - Atherosclerotic heart disease of [place] coronary artery without angina pectoris Category: Medical Qualifiers: Coronary Disease-Associated Artery/Lesion type: [place] artery [place] vs. transplanted heart: [place] heart Associated angina: with stable angina Qualified Code(s): I25.118 - Atherosclerotic heart disease of [place] coronary artery with other forms of angina pectoris Plan: Patient continues to follow [facility]. He continues on clopidogrel and high-dose statin therapy. Optimal LDL to be below 70 (3) BPH (benign prostatic hyperplasia): Code(s): N40.0 - Benign prostatic hyperplasia without lower urinary tract symptoms Category: Medical Qualifiers: Lower urinary tract symptom presence: symptoms absent Qualified Code(s): N40.0 - Benign prostatic hyperplasia without lower urinary tract symptoms Plan: Continues to follow [facility]. Does suffer from erectile dysfunction as well. Does use tadalafil quite regularly. (4) Essential hypertension: Code(s): I10 - Essential (primary) hypertension Category: Medical Plan: Patient's blood pressure acceptable today in office. Will continue his current dose of antihypertensive medication with goal blood pressure to remain below 140/90 (5) Obstructive sleep apnea: Comment: THIS GENTLEMAN HAS LONGSTANDING HISTORY OF OBSTRUCTIVE SLEEP APNEA, SINCE LAST VISIT 2 MONTHS AGO, HE HAS BEEN USING CPAP VERY REGULARLY EVERY NIGHT. HE FULLY REALIZES THE BENEFIT OF USING THE CPAP, CLAIMING THAT HIS SLEEP IS MUCH BETTER AND HE WAKES MUCH MORE REFRESHED. ( CPAP, ,FULLFACE MASK PRESSURE 15 CM ) LOST HIS CPAP DEVICE IN THE LUGGAGE, STILL WAITING. TO GET HIS LUGGAGE. Code(s): G47.33 - Obstructive sleep apnea (adult) (pediatric) Category: Medical Plan: Continues to follow [place] [facility] (6) Hyperlipidemia LDL goal <70: Code(s): E78.5 - Hyperlipidemia, unspecified Category: Medical Plan: Optimal LDL to be below 70 (7) Diabetic neuropathy associated with diabetes mellitus due to underlying condition: Code(s): E08.40 - Diabetes mellitus due to underlying condition with diabetic neuropathy, unspecified Category: Medical Qualifiers: Diabetes mellitus complication detail: diabetic polyneuropathy Qualified Code(s): E08.42 - Diabetes mellitus due to underlying condition with diabetic polyneuropathy Plan: Has per HPI patient has been experiencing bilateral lower extremity neuropathy associated with his type 2 diabetes. He is open to the idea of trying medication and topical diabetic neuropathy treatment. Will refer to [place] [facility] for capsaicin cream treatments. (8) Swelling of right elbow: Code(s): M25.421 - Effusion, right elbow Category: Medical Plan: Has noted right elbow swelling ever since noting a pimple over his olecranon process. Has right elbow does look swollen as compared to left though in his somewhat warm to touch. Seems to be inflamed out of abundance of cautioned will prescribe antibiotics (9) Left carpal tunnel syndrome: Code(s): G56.02 - Carpal tunnel syndrome, left upper limb Category: Medical Plan: Patient's bilateral hand and wrist/ upper extremity weakness and numbness has not improved, would like to retest nerve conduction Again advise to consider carpal tunnel release as he is not clinically been improving with conservative management. Orders: Orders NE nerve conduction velocity Today G56.02 - Carpal tunnel syndrome, left upper limb, G56.11 - Other lesions of median nerve, right upper limb XR elbow RT 2V Today M25.421 - Effusion, right elbow NE electromyogram (EMG) Today G56.02 - Carpal tunnel syndrome, left upper limb, G56.11 - Other lesions of median nerve, right upper limb Medications: New amoxicillin-pot clavulanate 875-125 mg 1 tab PO BID 14 tabs 0RF 7 days M25.421 - Effusion, right elbow Refilled pen needle, diabetic (Comfort EZ Pen [place]) TWICE A DAY 60 ea 8RF E11.65 - Type 2 diabetes mellitus with hyperglycemia, Z79.4 - nursing home (current) use of insulin blood-glucose sensor (FreeStyle Rod 3 Sensor device) As directed 1 ea 8RF E11.65 - Type 2 diabetes mellitus with hyperglycemia, Z79.4 - nursing home (current) use of insulin
== END 2024-10-04 12:18 | disposition home or self-care (01) ==
LOC: HO.HMCH 11:18
PROVIDERS: PCP Physician Assistant; Visit Provider Physician Assistant
DX: E11.42 Type 2 diabetes mellitus with diabetic polyneuropathy (principal); I25.118 Atherosclerotic heart disease of native coronary artery with other forms of angina pectoris; N40.0 Benign prostatic hyperplasia without lower urinary tract symptoms; I10 Essential (primary) hypertension; G47.33 Obstructive sleep apnea (adult) (pediatric); E78.5 Hyperlipidemia, unspecified; M25.421 Effusion, right elbow; G56.02 Carpal tunnel syndrome, left upper limb

== ENCOUNTER → 2024-10-04 12:48 | Outpatient (BNV) | payer OTHER, SELFPAY | PROVIDERS: Absent Provider Physician Assistant; PCP Physician Assistant; Visit Provider Radiology Diagnostic Radiology | DX: M25.421 Effusion, right elbow (principal) | CPT/HCPCS: 73070 ==

== ENCOUNTER 2024-10-04 15:09 | Outpatient (AMB) | payer OTHER, SELFPAY ==
--- NOTE | 2024-10-04 15:13 | MHC.OFFVIS ---
Intake Visit Reasons: 6m/PSA Intake Note: Patient presents today for follow up erectile dysfunction Urology Medications: none Blood Thinner: none Varnish Dipper Required: No Accompanied by: Self / Same As Patient Allergies metoprolol (METOPROLOL) Allergy (Unknown, Verified 10/04/24 17:57) UNKNOWN Medication List - Last Reconciled 10/04/24 by ANGIE Davis-MOLLY amoxicillin-pot clavulanate 875-125 mg 1 tab PO BID 7 days atorvastatin 80 mg PO BEDTIME blood sugar diagnostic (FreeStyle Lite Strips) As directed three times a day blood-glucose meter (FreeStyle Lite Meter kit) As directed to test 3 times per day blood-glucose sensor (FreeStyle Rod 3 Sensor device) As directed blood-glucose,urban redevelopment specialist,cont (FreeStyle Rod 3 [place]) As directed carvedilol 3.125 mg PO BID 90 days clopidogrel 75 mg PO DAILY CPAP (CPAP Machine/Device) As directed cyclobenzaprine 10 mg PO BID 7 days dulaglutide (Trulicity) 3 mg (0.5 mL) subcut QWEEK 90 days empagliflozin (Jardiance) 10 mg PO DAILY 90 days ezetimibe 10 mg PO DAILY gabapentin 300 mg PO DAILY 15 days hydroxyzine HCl 20 mg (2 x 10 mg) PO BEDTIME 15 days lancets (FreeStyle Lancets) As directed three time a day Lantus Solostar U-100 Insulin (insulin glargine) 45 units (0.45 mL) subcut BID 90 days NS omeprazole 40 mg PO DAILY pen needle, diabetic As directed pen needle, diabetic (Comfort EZ Pen [place]) TWICE A DAY sacubitril-valsartan 49-51 mg 1 tab PO BID spironolactone 25 mg PO DAILY tadalafil (Cialis) 20 mg PO DAILY PRN 90 days tadalafil 5 mg PO DAILY 90 days HPI Comments Details: Jd is a pleasant 54 year-old male patient of Dr. Yates. He has a past medical history of obesity, hyperlipidemia, hypertension, type 2 diabetes with polyneuropathy, CAD, and CAT. He presents to the office today for a follow up of his erectile dysfunction. In discussion with the patient today reports to be doing and feeling well. He reports compliance with daily dosing of tadalafil with p.r.n. dosing. He does feel this has been somewhat helpful in maintaining and obtaining his erections. He reports having followed up with his PCP earlier today and has been attempting to continue to better manage his A1c and weight management as he is attempting to lose weight. He does report having lost 10 lb over the last 3-6 months. Recent PSA results were reviewed with the patient today. As noted and trended below. He otherwise denies any bothersome urinary issues. He denies urinary urgency, urinary frequency, incontinence, nocturia, hematuria, dysuria, foul smelling urine, changes to urinary stream, flank pain, fever, and or chills. He is happy with his current voiding parameters. In office urinalysis results reviewed with the patient today. PSAs are as follows PSA 12/09 0.2, 10/11 0.2 Testosterone 01/09 388 Free testosterone 01/09 52.8 A1c: 12/10 7.9, 07/11 8.9, 10/11 7.3 He discusses being more compliant with his CPAP machine. He otherwise offers no issues or concerns at this time. FORMERLY [facility], [facility] Medical History STEMI (ST elevation myocardial infarction) Nocturnal hypoxemia Infection of penis History of torn meniscus of right knee CAD (coronary artery disease) Type 2 diabetes mellitus with diabetic polyneuropathy Essential hypertension Hyperlipidemia LDL goal <70 Obesity due to excess calories Surgical History Hx of cardiac catheterization History of lateral meniscus repair of right knee Family History Father No problems noted. Mother No problems noted. Son Diabetes mellitus type 1 Social History Household Members: Family Housing: Apartment Alcohol intake: current Alcohol intake frequency: does not drink Patient Tobacco Use Status: Never used Tobacco e-Cigarette/Vaping Use: Never Used Second Hand Smoke Exposure: No service: No Current occupational status: unemployed Cognitive needs: No Hearing needs: No Vision needs: Yes (Glasses) Review of Systems Const Reports as per HPI Eyes Reports no additional complaints ENT Reports as per HPI Card Reports as per HPI Resp Reports as per HPI GI Reports no additional complaints Reports as per HPI Neuro Reports no additional complaints Psych Reports no additional complaints Endo Reports as per HPI Physical Exam Const General: cooperative, healthy appearing, comfortable, no acute distress, well developed, alert and awake Nutritional Appearance: overweight Orientation/consciousness: patient oriented x3 Limitations: no limitations HEENT Head: Yes normal to inspection, Yes normocephalic and Yes atraumatic Ears: hearing grossly normal bilaterally Eyes General: appearance normal, both eyes and all related structures Neck Neck: Yes normal visual inspection and Yes trachea midline Chest Chest palpation & inspection: normal inspection of the chest Resp Effort & Inspection: normal respiratory effort and able to speak in complete sentences Cardio Rate: regular rate GI Inspection: Yes normal to inspection General: Yes no CVA tenderness Back/Spine/Pelvis Back: no CVA tenderness Skin General skin exam: no rashes or lesions noted Neuro General: patient oriented x3 Extrem General: Yes normal to inspection Psych Appearance: grossly normal and well kempt Mental Status: mental status grossly normal Speech and movement: Normal speech and movement present and Clear speech present Affect: normal affect Attitude: cooperative Thought process: Normal thought process present Thought content: Normal thought content present Insight: Fair insight present (Psych) Judgement: Fair judgement present (Psych) Results AMB Urinalysis, Automated UA Leukoctes 0 Madhu/uL Last Edit by Michelle Gutierrez MA on 10/04/24 15:52 UA Nitrite Negative Last Edit by Michelle Gutierrez MA on 10/04/24 15:52 UA Urobilinogen 0.2 mg/dL Last Edit by Michelle Gutierrez MA on 10/04/24 15:52 UA Protein 0 mg/dL Last Edit by Michelle Gutierrez MA on 10/04/24 15:52 UA pH 5.5 Last Edit by Michelle Gutierrez MA on 10/04/24 15:52 UA Blood 0 Hugh/uL Last Edit by Michelle Gutierrez MA on 10/04/24 15:52 UA Specific Ramona 1.015 Last Edit by Michelle Gutierrez MA on 10/04/24 15:52 UA Ketone Negative Last Edit by Michelle Gutierrez MA on 10/04/24 15:52 UA Bilirubin 0 mg/dL Last Edit by Michelle Gutierrez MA on 10/04/24 15:52 UA Glucose 1000 mg/dL Last Edit by Michelle Gutierrez MA on 10/04/24 15:52 AMB Hemoglobin A1c AMB Hemoglobin A1c 7.3 % Last Edit by LEONORA Lino on 10/04/24 17:33 Results Reviewed Results Reviewed: Laboratory Last Values Urine pH (Auto) 5.5 10/04/24 15:35 Specific Ramona (Auto) 1.015 10/04/24 15:35 Urine Protein (Auto) 0 mg/dL 10/04/24 15:35 Glucose (UA)(Auto) 1000 mg/dL 10/04/24 15:35 Urine Ketones (Auto) Negative 10/04/24 15:35 Urine Blood (Auto) 0 Hugh/uL 10/04/24 15:35 Urine Nitrite (Auto) Negative 10/04/24 15:35 Urine Bilirubin (Auto) 0 mg/dL 10/04/24 15:35 Urine Urobilinogen (Auto) 0.2 mg/dL 10/04/24 15:35 Leukocyte Esterase (Auto) 0 Madhu/uL 10/04/24 15:35 Assessment & Plan Assessment & Plan (1) Erectile dysfunction associated with type 2 diabetes mellitus: Code(s): E11.69 - Type 2 diabetes mellitus with other specified complication; N52.1 - Erectile dysfunction due to diseases classified elsewhere Category: Medical Plan In office urinalysis results reviewed with the patient today; as noted above. Recent PSA results reviewed with the patient today; as noted above. Patient currently denies any bothersome urinary issues or concerns. He reports be happy with current voiding parameters. Cialis 5 mg daily with p.r.n. dosing as discussed. Discussed, educated, and stressed the importance of continuing to manage diabetes as well as compliance with CPAP machine for improvement overall health and well-being as well as urologically. Discussed lifestyle modifications to assist with ED Will obtain testosterone and LH in 3 months Follow-up in 3-4 months months with labs to be completed prior; or sooner with any issues, concerns, and or questions. Orders: Orders Prostate Specific Antigen Today Z12.5 - Encounter for screening for malignant neoplasm of prostate Lutenizing Hormone Today E11.69 - Type 2 diabetes mellitus with other specified complication, N52.1 - Erectile dysfunction due to diseases classified elsewhere AMB Urinalysis Automated Today Z13.9 - Encounter for screening, unspecified Testosterone, Free/Total Today E11.69 - Type 2 diabetes mellitus with other specified complication, N52.1 - Erectile dysfunction due to diseases classified elsewhere Patient Instructions: The patient had an opportunity to ask questions regarding the treatment plan. All questions were answered. Physical exam, labs, and imaging were discussed and reviewed in detail. As well as risks, benefits, and discussion of treatment choices. No major barriers to understanding were identified. The patient expressed understanding and agreement with the above treatment plan. The patient was made aware they should contact our office by phone for worsening of their current condition, the appearance of new symptoms, or with any questions or concerns. Compliance is encouraged with any medications and follow up testing that is ordered. It is a privilege to be allowed the opportunity to participate in? your urological care.? Again, if you have any questions or concerns If you have any questions or concerns please do not hesitate to contact me. The office is [phone]. This note is constructed using voice recognition software. While every effort has been made to ensure accuracy netbackup admin errors may have been included. Yours sincerely, MEGHNA Davis Coding Level of Care Code Est Pt Level 3 (74876) Diagnoses Erectile dysfunction associated with type 2 diabetes mellitus E11.69; N52.1
== END 2024-10-04 16:26 | disposition home or self-care (01) ==
LOC: HO.HUSH 15:10
PROVIDERS: PCP Physician Assistant; Visit Provider Nurse Practitioner Family
DX: E11.69 Type 2 diabetes mellitus with other specified complication (principal); N52.1 Erectile dysfunction due to diseases classified elsewhere; Z13.9 Encounter for screening, unspecified
CPT/HCPCS: 99213

== ENCOUNTER 2024-11-23 15:31 | Emergency (ER) | payer OTHER, SELFPAY ==
--- NOTE | ~2024-11-23 | XR_ITS ---
CLINICAL HISTORY: Pain; Swelling; Painful ROM 3 view right wrist Comparison: None provided Findings: No fractures or dislocations. Mild degenerative narrowing of the radiocarpal joint space. No radiopaque foreign body. IMPRESSION: 1. No acute findings This document has been electronically signed by: Abad Teran MD, PHD on 11/23/2024 23:13:37
--- NOTE | ~2024-11-23 | US_ITS ---
CLINICAL HISTORY: Swelling; Pain; r o DVT Venous duplex ultrasound right upper extremity Comparison: None provided Findings: Accessible deep venous segments are fully compressible with normal Doppler color flow and spectral tracings. IMPRESSION: 1. Negative for right upper extremity deep vein thrombosis. This document has been electronically signed by: Abad Teran MD, PHD on 11/23/2024 23:06:03
[2024-11-23 16:01] VITALS: BP 131/64; PULSE 94; RESP 16; TEMP 36.7; O2SAT 96; BMI 36.4
--- NOTE | 2024-11-23 16:04 | ED.GENADULT ---
HPI - General Adult General Chief complaint: Extremity Problem Stated complaint: right arm swollen/pain to elbow Time Seen by Provider: 11/23/24 21:48 Source: patient Mode of arrival: ambulatory Limitations: no limitations History of Present Illness ED Provider: Nahid TREVINO HPI narrative: The patient is a 54-year-old male with history of diabetes, carpal tunnel syndrome, GERD, hypertension, hyperlipidemia, and CAD with 2 previous stents, currently on Plavix, presenting to the ED for evaluation of 3 days of gradually worsening swelling and painful range of motion of the right forearm, wrist, and hand. The patient reports subjective warmth in the hand and distal forearm, denies associated fever/chills, nausea, vomiting, or other systemic complaint. The patient reports pain is markedly increased with any attempted range of motion of the wrist, when experiencing passive or active range of motion pain shoots up throughout the arm. The patient reports 2 weeks ago he noted swelling of the right olecranon process which he described as having a ?cuellar?, patient contacted his PCP via phone who did not see the patient but did prescribe antibiotics for question bursitis. Despite patient's report that this occurred 2 weeks ago the patient's chart review reveals patient was treated with Augmentin by his PCP on October 04, 7 weeks ago. The patient reports his right wrist forearm and hand pain began 3 days ago, currently denies any pain or painful range of motion of the right elbow. The patient denies any recent trauma. Patient denies any surgical history of the arm. Related Data Previous Rx's ?Medication ?Instructions ?Recorded blood-glucose meter (FreeStyle #1 ea 06/19/20 Lite Meter kit) blood sugar diagnostic (FreeStyle #100 ea 06/05/21 Lite Strips) lancets 28 gauge (FreeStyle #100 ea 05/07/22 Lancets) pen needle, diabetic 32 gauge x #50 ea 05/12/22 CPAP (CPAP Machine/Device) #1 ea 06/22/23 blood-glucose,roll plugger,cont #1 ea 07/01/23 (FreeStyle Rod 3 [place]) tadalafil 5 mg tablet 5 mg PO DAILY sexual activity 90 04/03/24 days #90 tabs sacubitril 49 mg-valsartan 51 mg 1 tab PO BID #180 tabs 04/04/24 tablet clopidogrel 75 mg tablet 75 mg PO DAILY #90 tabs 06/21/24 Lantus Solostar U-100 Insulin 100 45 unit (0.45 mL) subcut BID 90 07/04/24 unit/mL (3 mL) subcutaneous pen days #81 mL (insulin glargine) dulaglutide 3 mg/0.5 mL 3 mg (0.5 mL) subcut QWEEK 90 days 07/04/24 subcutaneous pen injector #6.5 mL (Trulicity) gabapentin 300 mg capsule 300 mg PO DAILY 15 days #15 caps 07/04/24 cyclobenzaprine 10 mg tablet 10 mg PO BID 7 days #14 tabs 07/25/24 hydroxyzine HCl 10 mg tablet 20 mg (2 x 10 mg) PO BEDTIME 15 08/29/24 days #30 tabs atorvastatin 80 mg tablet 80 mg PO BEDTIME #90 tabs 09/01/24 carvedilol 3.125 mg tablet 3.125 mg PO BID 90 days #180 tabs 09/01/24 empagliflozin 10 mg tablet 10 mg PO DAILY 90 days #90 tabs 09/01/24 (Jardiance) ezetimibe 10 mg tablet 10 mg PO DAILY #90 tabs 09/01/24 omeprazole 40 mg capsule,delayed 40 mg PO DAILY #90 caps 09/01/24 release spironolactone 25 mg tablet 25 mg PO DAILY #90 tabs 09/01/24 amoxicillin 875 mg-potassium 1 tab PO BID 7 days #14 tabs 10/04/24 clavulanate 125 mg tablet pen needle, diabetic 32 gauge x #60 ea 10/04/2409/01 (Comfort EZ Pen [place]) blood-glucose sensor (FreeStyle #2 ea 10/05/24 Rod 3 Plus Sensor device) tadalafil 20 mg tablet (Cialis) 20 mg PO DAILY PRN sexual activity 11/16/24 90 days #30 tabs acetaminophen 500 mg capsule 1,000 mg (2 x 500 mg) PO .q8 PRN 11/23/24 fever or pain #30 caps colchicine 0.6 mg capsule 0.6 mg PO BID #10 caps 11/23/24 prednisone 20 mg tablet 60 mg (3 x 20 mg) PO DAILY 5 days 11/23/24 #15 tabs Allergies Allergy/AdvReac Type Severity Reaction Status Date / Time metoprolol (METOPROLOL) Allergy Unknown UNKNOWN Verified 11/23/24 16:04 Review of Systems Review of Systems: Yes all other systems are reviewed and are negative [facility] Past Medical History Medical History STEMI (ST elevation myocardial infarction) Nocturnal hypoxemia Infection of penis History of torn meniscus of right knee CAD (coronary artery disease) Type 2 diabetes mellitus with diabetic polyneuropathy Essential hypertension Hyperlipidemia LDL goal <70 Obesity due to excess calories Surgical History Hx of cardiac catheterization History of lateral meniscus repair of right knee Family History Family History Father No problems noted. Mother No problems noted. Son Diabetes mellitus type 1 Social History Social History Household Members: Family Housing: Apartment Alcohol intake: current Alcohol intake frequency: does not drink Patient Tobacco Use Status: Never used Tobacco e-Cigarette/Vaping Use: Never Used Second Hand Smoke Exposure: No Advance Directives: No Advance Directives Information Provided: No service: No Current occupational status: unemployed Cognitive needs: No Hearing needs: No Vision needs: Yes (Glasses) Physical Exam ED Exam Exam: CONSTITUTIONAL: The patient appears non-toxic, well nourished and in no acute distress. Vital signs as documented. HEAD: Atraumatic, normocephalic. EYES: EOMs grossly intact, pupils equal, conjunctiva clear, no exudate. ENT: Nares patent, no discharge. Airway patent, no audible stridor, visible mucosa is pink and moist without noted lesions. NECK: trachea is midline, no obvious masses or gross abnormalities. CHEST: Symmetric movement, normal appearance. LUNGS: Non-labored work of breathing. CARDIAC: No evidence of hypoperfusion. ABDOMEN: Nondistended, no obvious injury. : Deferred. EXTREMITIES: There is mild swelling of the right olecranon process without associated erythema or tenderness, no painful or impaired range of motion of the right elbow. The right forearm and hand demonstrates 1+ nonpitting edema without obvious overlying erythema, compartments are soft, there is no tenderness to palpation however there is marked pain with any attempted flexion, extension, rotation, or other movement of the right wrist. Distal CSM is intact but painful, 2+ radial pulse noted, distal cap refill is normal. No fluctuance or drainage, no ulcerations or other open lesions. Moves all other extremities spontaneously without reported pain. No obvious injury or deformity noted. NEURO: Alert and oriented x3, CN II-XII appear grossly intact. Cerebellar Functioning grossly intact. Speech clear and appropriate. SKIN: Warm, dry, color appropriate. No rashes or lesions noted. Vital Signs: Vital Signs - 24 hr 11/23/24 16:01 11/23/24 19:34 11/23/24 23:40 Temperature 98.1 F 98 F 98 F Pulse Rate 94 92 92 Respiratory Rate 16 18 18 Blood Pressure 131/64 154/87 H 154/87 H Pulse Oximetry 96 98 98 Oxygen Delivery Method Room Air Room Air Room Air BMI result Body Mass Index 36.4 Course Course Course Narrative: This is a rapid medical exam performed by Yuriy Red NP: Additional HPI, ROS, PE not included below will be deferred to primary provider. Patient is a 54-year-old male with history of T2DM, CAD, HTN presenting with complaint of right forearm pain. Was treated with abx 2 weeks ago for R elbow bursitis. Plan: labs Medications Administered Discontinued Medications Generic Name Dose Route Start Last Admin Trade Name Freq PRN Reason Stop Dose Admin Acetaminophen 975 mg 11/23/24 22:05 11/23/24 22:48 Acetaminophen 325 Mg Tablet PO 11/23/24 22:06 975 mg ONCE ONE Administration Colchicine 0.6 mg 11/23/24 23:24 11/23/24 23:37 Colchicine 0.6 Mg Tablet PO 11/23/24 23:25 0.6 mg ONCE ONE Administration Prednisone 60 mg 11/23/24 23:20 11/23/24 23:37 Prednisone 20 Mg Tablet PO 11/23/24 23:21 60 mg ONCE ONE Administration Medical Decision Making Medical Decision Making [facility] Narrative: 10:17 PM 11/23/2024 (Elver TREVINO): The patient is a 54-year-old male presenting to the ED for evaluation of 3 days of worsening right distal forearm, wrist, and hand swelling and painful range of motion. Patient's exam shows no significant overlying erythema however there is marked pain with active or passive range of motion, distal CSM is intact, there are soft compartments of the forearm, patient's laboratory evaluation is reassuring, no leukocytosis, mildly elevated CRP, normal ESR. Patient is afebrile. Seven weeks ago the patient was treated for question bursitis by his PCP after discussing symptoms over the phone. The patient's presentation may be consistent with gouty arthritis, versus less likely DVT or even less likely infectious pathology/septic joint. Patient denies IVDA. The patient will be sent for right upper extremity ultrasound and wrist x-ray. We will add on uric acid and reassess. 11:32 PM 11/23/2024 (Elver TREVINO): Patient's x-ray and ultrasound are negative for acute pathology. Patient's uric acid level is normal, however patient's presentation is highly concerning for possible gouty arthritis. We will treat with prednisone, colchicine, and Tylenol. The patient's workup is not concerning for infectious pathology. Patient has been advised to monitor his blood sugar closely while taking prednisone and has been advised to follow up with his PCP for re-evaluation if symptoms do not improve in the next 2-3 days. Admission/Observation Consideration of admission/observation: Escalation of care including admission/observation considered Lab Data MDM Lab Attestation statement: I reviewed the patient's lab results. 11/23/24 17:02 11/23/24 17:02 Labs: Lab Results 11/23/24 Range/Units 17:02 WBC 7.7 (4.8-10.8) X10*3/uL RBC 5.11 (4.60-5.80) X10*6/uL Hgb 14.5 (14.0-18.0) g/dl Hct 41.8 L (42.0-52.0) % MCV 81.8 (80.0-98.0) fL MCH 28.4 (27.0-33.0) pg MCHC 34.7 (31.0-36.0) g/dl RDW 12.9 (11.0-16.0) % Plt Count 176 (160-400) X10*3/uL MPV 9.5 (9.4-12.4) fL Immature Gran % (Auto) 0.5 H (0.0-0.4) % Neut % (Auto) 71.1 (45-73) % Lymph % (Auto) 15.9 L (20-40) % [place] % (Auto) 9.1 (2-11) % Eos % (Auto) 3.1 (0-4) % Baso % (Auto) 0.3 (0-2) % Lymph # (Auto) 1.2 (1.2-4.9) X10*3/uL [place] # (Auto) 0.7 (0.1-1.2) X10*3/uL Eos # (Auto) 0.2 (0.0-0.4) X10*3/uL Baso # (Auto) 0.0 (0.0-0.2) X10*3/uL Abs Immat Gran (auto) 0.04 H (0.00-0.03) X10*3/uL Absolute Neuts (auto) 5.5 (2.0-8.3) x10*3/uL Absolute Nucleated RBC 0.000 (0.0-0.012) X10*3/uL Nucleated RBC % (auto) 0.0 (0.0-0.2) /100WBC ESR 9 (0-15) MM/HR Sodium 139 (135-145) mmol/L Potassium 4.1 (3.3-5.1) mmol/L Chloride 107 (96-108) mmol/L Carbon Dioxide 23 (22-29) mmol/L Anion Gap 13 (12-20) BUN 20 H (9-16) mg/dL Creatinine 0.97 (0.5-1.4) mg/dL Estim Creat Clear Calc 121.1 Estimated GFR > 60 Random Glucose 184 H (60-115) mg/dL Uric Acid 4.5 (3.4-7.0) mg/dL Calcium 9.1 (8.4-10.2) mg/dL Total Bilirubin 0.6 (0.0-1.0) mg/dL AST 20 (5-37) U/L ALT 16 (0-40) U/L Alkaline Phosphatase 93 (39-117) U/L C-Reactive Protein 0.85 H (< or = 0.50) mg/dL Total Protein 7.8 (6.5-8.0) g/dL Albumin 4.5 (3.5-5.0) g/dL Radiology Impression Discussion of test interpretation with radiology: I have reviewed the radiologist's reading. Radiologist Impression: CLINICAL HISTORY: Pain; Swelling; Painful ROM 3 view right wrist Comparison: None provided Findings: No fractures or dislocations. Mild degenerative narrowing of the radiocarpal joint space. No radiopaque foreign body. IMPRESSION: 1. No acute findings This document has been electronically signed by: Abad Teran MD, PHD on 11/23/2024 23:13:37 CLINICAL HISTORY: Swelling; Pain; r o DVT Venous duplex ultrasound right upper extremity Comparison: None provided Findings: Accessible deep venous segments are fully compressible with normal Doppler color flow and spectral tracings. IMPRESSION: 1. Negative for right upper extremity deep vein thrombosis. This document has been electronically signed by: Abad Teran MD, PHD on 11/23/2024 23:06:03 Prescription Management I considered prescription management with: Pain Medication Discharge Plan Discharge Clinical Impression: Gout Patient Disposition: Home, Self-Care Instructions: Low Purine Diet (ED), Gout (ED) Additional Instructions: Thank you for choosing [facility]'s Emergency Department for your care today. Thankfully your laboratory evaluation, x-ray, and ultrasound today show no evidence of infection, foreign body, fracture, or blood clot as the cause for your forearm, wrist, and hand swelling and pain. At this time there is no indication for admission to the hospital or continued ED observation, and it is safe to discharge you home. Your presentation of symptoms appears consistent with likely gouty arthritis. We are treating you with prednisone, colchicine, and you can take Tylenol as directed as needed for additional pain. Please be aware that your blood sugars may vary greatly while taking prednisone and may require adjustments to your regular blood sugar management medications. At this time however the benefit of improvement in your symptoms outweighs the risk of elevated blood sugars. Please follow up with your primary care physician for re-evaluation, additional management of your symptoms, and continued preventative care. If you do not have a primary care physician, please call the [facility] at [phone] to establish a new primary care physician. While waiting to establish your new primary care physician, you can call our Walk[facility]in [facility] at [phone] for non-emergency needs. Please return to the emergency department if you develop a severe or sudden change in your symptoms, a fever over 100.4 that does not improve with Tylenol or Ibuprofen, recurrent vomiting, or any other new or worsening symptoms or concerns. Prescriptions: New acetaminophen 500 mg capsule 1,000 mg PO .q8 PRN (Reason: fever or pain) Qty: 30 0RF colchicine 0.6 mg capsule 0.6 mg PO BID Qty: 10 0RF prednisone 20 mg tablet 60 mg PO DAILY 5 Days Qty: 15 0RF No Action (DME) blood-glucose meter [FreeStyle Lite Meter] Kit See Rx Instructions .ROUTE .MEDSUPPLY Qty: 1 0RF Rx Instructions: As directed to test 3 times per day (DME) FreeStyle Lite Strips Strip See Rx Instructions .ROUTE .MEDSUPPLY Qty: 100 11RF Rx Instructions: As directed three times a day (DME) lancets [FreeStyle Lancets] 28 gauge misc See Rx Instructions .ROUTE .MEDSUPPLY Qty: 100 11RF Rx Instructions: As directed three time a day (DME) pen needle, diabetic 32 gauge x 5/32 needle See Rx Instructions subcut .MEDSUPPLY Qty: 50 7RF Rx Instructions: As directed (DME) FreeStyle Rod 3 [place] Misc See Rx Instructions .Route Qty: 1 1RF Rx Instructions: As directed tadalafil 5 mg tablet 5 mg PO DAILY 90 Days Qty: 90 2RF Rx Instructions: [id number] [facility] [id number] Member [id number] sacubitril-valsartan 49-51 mg tablet 1 tab PO BID Qty: 180 3RF cyclobenzaprine 10 mg tablet 10 mg PO BID 7 Days Qty: 14 0RF hydroxyzine HCl 10 mg tablet 20 mg PO BEDTIME 15 Days Qty: 30 3RF atorvastatin 80 mg tablet 80 mg PO BEDTIME Qty: 90 3RF carvedilol 3.125 mg tablet 3.125 mg PO BID 90 Days Qty: 180 3RF Rx Instructions: must administer with a meal/food Jardiance 10 mg tablet 10 mg PO DAILY 90 Days Qty: 90 3RF ezetimibe 10 mg tablet 10 mg PO DAILY Qty: 90 3RF omeprazole 40 mg capsule,delayed release(DR/EC) 40 mg PO DAILY Qty: 90 2RF spironolactone 25 mg tablet 25 mg PO DAILY Qty: 90 2RF (DME) FreeStyle Rod 3 Plus Sensor Device See Rx Instructions .Route Qty: 2 6RF Rx Instructions: As directed tadalafil [Cialis] 20 mg tablet 20 mg PO DAILY PRN (Reason: sexual activity) 90 Days Qty: 30 1RF Rx Instructions: [id number] [facility] [id number] Member [id number] (DME) CPAP Machine/Device Device See Rx Instructions .Route Qty: 1 0RF Rx Instructions: As directed (DME) Comfort EZ Pen [place] 32 gauge x 5/16 needle See Rx Instructions .ROUTE .MEDSUPPLY Qty: 60 8RF Rx Instructions: TWICE A DAY amoxicillin-pot clavulanate 875-125 mg tablet 1 tab PO BID 7 Days Qty: 14 0RF clopidogrel 75 mg tablet 75 mg PO DAILY Qty: 90 4RF Trulicity 3 mg/0.5 mL pen injector 3 mg subcut QWEEK 90 Days Qty: 6.5 3RF insulin glargine [Lantus Solostar U-100 Insulin] 100 unit/mL (3 mL) insulin pen 45 unit subcut BID 90 Days Qty: 81 3RF gabapentin 300 mg capsule 300 mg PO DAILY 15 Days Qty: 15 0RF Referrals: Will De La Torre PA-C [Primary Care Provider, Internal Medicine] Clinical Impression: Gout Interventions: ED Discharge Assessment Last Done: 11/23/24 23:40 Discharge Date/Time: 11/23/24 23:40 Print Language: Hebrew
[2024-11-23 17:16] LABS: MANUAL DIFF FLAG NO
[2024-11-23 17:25] LABS: Hematocrit 41.8 % (42.0-52.0); Hemoglobin 14.5 g/dl (14.0-18.0); Imm Gran Abs Auto 0.04 X10*3/uL (0.00-0.03); Imm Gran Pct Auto 0.5 % (0.0-0.4); Lymphocytes Absolute Auto 1.2 X10*3/uL (1.2-4.9); Mean Corpuscular HGB Conc 34.7 g/dl (31.0-36.0); Mean Corpuscular Hemoglobin 28.4 pg (27.0-33.0); Mean Corpuscular Volume 81.8 fL (80.0-98.0); NRBC Abs Auto 0.000 X10*3/uL (0.0-0.012); NRBC Pct Auto 0.0 /100WBC (0.0-0.2); Platelet Count 176 X10*3/uL (160-400); Red Blood Count 5.11 X10*6/uL (4.60-5.80); White Blood Count 7.7 X10*3/uL (4.8-10.8)
[2024-11-23 17:31] LABS: Alanine Aminotransferase 16 U/L (0-40); Albumin Level 4.5 g/dL (3.5-5.0); Alkaline Phosphatase 93 U/L (39-117); Anion Gap 13 (12-20); Aspartate Amino Transferase 20 U/L (5-37); Blood Urea Nitrogen 20 mg/dL (9-16); Calcium 9.1 mg/dL (8.4-10.2); Carbon Dioxide 23 mmol/L (22-29); Chloride 107 mmol/L (96-108); Creatinine Clr Calc Pharmacy 121.1; Estimated Glomerular Filt Rate > 60; Potassium 4.1 mmol/L (3.3-5.1); Sodium 139 mmol/L (135-145); Total Protein 7.8 g/dL (6.5-8.0)
[2024-11-23 19:34] VITALS: BP 154/87; PULSE 92; RESP 18; TEMP 36.6; O2SAT 98
--- OUTSIDE RECORDS SUMMARY | 2024-11-23 19:52 | XMS_ITS | Clinical Summary ---
Author Organization [facility] Address [address] [facility] [address] [place] [address] Phone Care Team Providers Care Virtual Assistant Name Role Phone Rene Yates MD Primary Care Provider [phone] Encounters Date Type Department Care Team Description 09/01/2024 Transcribe Orders [facility] Neurology [address] [place] [address] Yoselin Gold MA Type 2 diabetes mellitus without complications (Primary Dx) from Last 3 Months Social History Tobacco Use Types Packs/Day Years Used Date Smoking Tobacco: Never Assessed Education Answer Date Recorded Are you interested in more education? Not on leana e 09/01/2024 Are you concerned about learning? Not on file 09/01/2024 No 09/01/2024 No 09/01/2024 Digital Access Answer Date Recorded No 09/01/2024 No 09/01/2024 Reliable internet access at home? Not on file 09/01/2024 Device with a working camera? Not on file Sex and Gender Information Value Date Recorded Sex Assigned at Not on file Legal Sex Male 2:48 PM EDT Gender Identity Not on file Sexual Orientation Not on file Plan of Treatment Health Maintenance Due Date Last Done Comments Adult Td,Tdap Booster 1968 LIPID PANEL 1968 DEPRESSION SCREENING 1980 SMOKING Hx and SMOKELESS TOB ACCO SCREENING 1981 HEPATITIS C SCREENING 1986 HIV ONE-TIME SCREENING (18-6 5 YEARS) 1986 COLOGUARD 2013 COLONOSCOPY 2013 COLORECTAL CANCER SCREENING 2013 FIT TEST 2013 FOBT 2013 SIGMOIDOSCOPY 2013 VIRTUAL COLONOSCOPY 2013 PNEUMOCOCCAL VACCINES (50+ y ears) (1 of 1 - PCV) 2018 ZOSTER VACCINES (1 of 2) 2018 COVID-19 VACCINE ( - 2023-2 5 season) 2023 HEPATITIS A VACCINES Aged Out No long er eligible based on patient's age to complete this topic HIB VACCINES Aged Out No longer eligi ble based on patient's age to complete this topic MENINGOCOCCAL VACCINES (ACWY) Aged Out No longer eligible based on patient's age to complete this topic MENINGOCOCCAL VACCINES (B) Aged Out N o longer eligible based on patient's age to complete this topic Medical Devices Not on file Insurance [place] [address] [place] [address] ACO ACO ACO ACO Care Teams Virtual Assistant Relationship Specialty Start Date End Date Rene Yates MD [address] [place] [address] [place] [address] PCP - General Internal Medicine 09/01/24 Additional Source Comments The information contained in this document represents components of the legal health record. It is not the complete legal health record.[facility]
--- NOTE | 2024-11-23 22:06 | PC.NURSE ---
URIEL Huffamn to bedside.
[2024-11-23 23:02] LABS: Uric Acid 4.5 mg/dL (3.4-7.0)
[2024-11-23 23:40] VITALS: BP 154/87; PULSE 92; RESP 18; TEMP 36.6; O2SAT 98
== END 2024-11-23 23:40 | disposition home or self-care (01) ==
PROVIDERS: Registered Nurse Emergency; Emergency Provider Emergency Medicine; PCP Physician Assistant
DX: M10.9 Gout, unspecified (principal); M25.531 Pain in right wrist; I10 Essential (primary) hypertension; E11.9 Type 2 diabetes mellitus without complications; Z86.79 Personal history of other diseases of the circulatory system; Z79.899 Other long term (current) drug therapy
CPT/HCPCS: 36415; 73110; 80053; 84550; 85025; 85652; 86140; 93971; 99283; 99284

== ENCOUNTER → 2024-11-23 22:05 | Outpatient (BNV) | payer OTHER, SELFPAY | PROVIDERS: Emergency Provider Emergency Medicine; PCP Physician Assistant; Visit Provider General Practice | DX: R22.31 Localized swelling, mass and lump, right upper limb (principal); M79.621 Pain in right upper arm | CPT/HCPCS: 73110; 93971 ==

== ENCOUNTER 2024-12-01 15:43 | Outpatient (AMB) | payer OTHER, SELFPAY ==
--- OUTSIDE RECORDS SUMMARY | 2024-09-21 15:52 | XMS_ITS | Continuity of Care Document ---
Author Organization [facility]. If a dditional information is needed, contact Health Information Management at [phone] Address [address] [place] [address] Phone Care Team Providers Care Digital Production Operator Name Role Phone Unavailable Unavailable Unavailable [...] and Adverse Reactions metoprolol(Allergy) Onset: 03-Feb-2022 Medications DAPAGLIFLOZIN PROPANEDIOL 5 MG TABLET;5 MILLIGRAM DAILY Quantity:1 Aquilino Erazo MD Start:6-Yjb-2109Gkw:23-Oct-19 Status:Discontinued Comments:[id number] Administration Instructions:Empagliflozin 10 mg Daily -> Dapagliflozin 5 mg DailyEmpagliflozin 25 mg Daily -> Dapagliflozin 10 mg Daily clopidogrel 75 MG Oral Tablet;75 MILLIGRAM DAILY Quantity:1 Aquilino Erazo MD Start:5-Msn-1166Zmb:23-Oct-19 Status:Discontinued Comments:[id number] Administration Instructions:HOLD FOR PLATELETS < 70 K aspirin 81 MG Chewable Tablet;81 MILLIGRAM DAILY Quantity:1 Aquilino Erazo MD Start:5-Hfj-8208Fqx:23-Oct-19 Status:Discontinued Comments:[id number] Administration Instructions:Nurses, please consult with physician before discharge toascertain if aspirin should be continued after discharge andobtain order. ATORVASTATIN CALCIUM;40 MILLIGRAM BEDTIME Quantity:1 Aquilino Erazo MD Start:5-Deg-5906Tgh:22-Oct-19 Status:Discontinued Comments:[id number] ATORVASTATIN CALCIUM;80 MILLIGRAM BEDTIME Quantity:2 Aquilino Erazo MD Start:6-Ilq-9209Xow:22-Oct-19 Status:Discontinued Comments:[id number] sacubitril 49 MG / valsartan 51 MG Oral Tablet [Entresto];1 TABLET BID Quantity:1 Aquilino Erazo MD Start:5-Grm-6433Npt:22-Oct-19 Status:Discontinued Comments:[id number] Administration Instructions:NO JULIEN INHIBITOR FOR 36 HOURS BEFORE STARTING ENTRESTOOR STOPPING ENTRESTO THERAPY*NEW START TO BE ORDERED BY PROPERTY DEVELOPER*NO JULIEN INHIBITORS FOR 36 HR BEFORE STARTING ENTRESTO ORSTOPPING ENTRESTO THERAPY insulin lispro 100 UNT/ML Injectable Solution [HumaLOG];[id number] r Administration Instructions:==MEDIUM DOSE INSULIN SCALE== 100 UNITS/MLBG<70 REPEAT TEST, CALL MD, and follow Hypoglycemia protocolB-199: GIVE 4 UNITSB-249: GIVE 6 UNITSB-299: GIVE 8 UNTISB-349: GIVE 10 UNITSBG>349: GIVE 12 UNITS Quantity:0 Aquilino Erazo MD Start:1-Qxt-3146Pbf:22-Oct-19 Status:Discontinued Comments:[id number] Administration Instructions:==MEDIUM DOSE INSULIN SCALE== 100 UNITS/MLBG<70 REPEAT TEST, CALL MD, and follow Hypoglycemia protocolB-199: GIVE 4 UNITSB-249: GIVE 6 UNITSB-299: GIVE 8 UNTISB-349: GIVE 10 UNITSBG>349: GIVE 12 UNITS acetaminophen 325 MG Oral Tablet;650 MILLIGRAM Q6H PRN Quantity:2 Aquilino Erazo MD Start:9-Ucg-6288Dax:22-Oct-19 Status:Discontinued Comments:[id number] Administration Instructions:*TOTAL DAILY ACETAMINOPHEN DOSE SHOULD NOT EXCEED 3,000 MG*IF AN IV AND PO PAIN MEDICATION ARE ORDERED FOR THE SAMEPAIN LEVEL, THE PO MEDICATION WILL BE ADMINISTEREDPREFERENTIALLY WHEN THE PATIENT IS ABLE TO TAKE PO. glucagon (rDNA) 1 MG Injection [GlucaGen];1 MILLIGRAM ASDIR Quantity:1 Aquilino Erazo MD Start:4-Rrr-2908Eiz:22-Oct-19 Status:Discontinued Comments:[id number] Administration Instructions:If no IV access, give Glucagon as follows:If BG < 70 mg/dL : Give 1 mg IM Glucagon repeat u11axrzmcab BG atleast 70 mg/dLHold Insulin Infusion notify MDObtain IV site and give Dextrose 50 % when available glucose 4000 MG Chewable Tablet;[id number] Administration Instructions:If patient is able to swallow and mealtime is more than 30minutes away give the following:If BG 50-69 mg/dL: Give 12 grams : 3 glucose tabletsIf less than 50 mg/dL: Give 24 grams : 6 glucose tablets Quantity:0 Aquiilno Erazo MD Start:0-Akz-9683Wcz:22-Oct-19 Status:Discontinued Comments:[id number] Administration Instructions:If patient is able to swallow and mealtime is more than 30minutes away give the following:If BG 50-69 mg/dL: Give 12 grams : 3 glucose tabletsIf less than 50 mg/dL: Give 24 grams : 6 glucose tablets 50 ML glucose 500 MG/ML Prefilled Syringe;[id number] Administration Instructions:If patient has IV access give Dextrose 50% IV based on BGand check every 15 mins until BG atleast 70 mg/dL; NOTIFY MDAdminister Dextrose 50% for the following:If BG < 50 mg/dL : Give 25 gm (50ml) D50WIf BG 50-69 mg/dL : Give 12.5 gm (25ml) D50W Quantity:0 Aquilino Erazo MD Start:3-Vtd-7926Qti:22-Oct-19 Status:Discontinued Comments:[id number] Administration Instructions:If patient has IV access give Dextrose 50% IV based on BGand check every 15 mins until BG atleast 70 mg/dL; NOTIFY MDAdminister Dextrose 50% for the following:If BG < 50 mg/dL : Give 25 gm (50ml) D50WIf BG 50-69 mg/dL : Give 12.5 gm (25ml) D50W perflutren;[id number] er Administration Instructions:10 MICROLITERS/KG PUSH OVER 30-60SECONDS, FOLLOWED BY A 10 ML SALINE FLUSH.Procedure use only Quantity:0 Aquilino Erazo MD Start:6-Nvl-5933Bkf:23-Sep-19 Comments:[id number] Administration Instructions:10 MICROLITERS/KG PUSH OVER 30-60SECONDS, FOLLOWED BY A 10 ML SALINE FLUSH.Procedure use only hydrOXYzine hydrochloride 25 MG Oral Tablet;25 MILLIGRAM BEDTIME PRN Quantity:1 Aquilino Erazo MD Start:3-Ncq-8637Bwz:22-Oct-19 Status:Discontinued Comments:[id number] Administration Instructions:VISTARIL/ATARAX CATEGORY X, FIRST TRIMESTER ONLY nitroglycerin 0.4 MG Sublingual Tablet [Nitrostat];0.4 MILLIGRAM Q5M PRN Quantity:1 Aquilino Erazo MD Start:7-Uih-3651Hiw:22-Oct-19 Status:Discontinued Comments:[id number] Administration Instructions:MAY REPEAT Q5MIN X 3 PRN CHEST PAIN. HOLD IF SBP < 90 NO JULIEN INHIBITORS;1 EACH ASDIR Quantity:1 Aquilino Erazo MD Start:0-Gte-5777Jzs:22-Oct-19 Status:Discontinued Comments:[id number] Administration Instructions:NO JULIEN INHIBITORS FOR 36 HRS BEFORE STARTING ENTRESTO ORSTOPPING ENTRESTO THERAPYNO JULIEN INHIBITORS FOR 36 HRS BEFORE STARTING ENTRESTO ORSTOPPING ENTRESTO THERAPY aspirin 81 MG Chewable Tablet;324 MILLIGRAM X1ED Quantity:4 Crystal Slicer Kristian R DO Start:8-Kkm-8399Ohp:22-Sep-19 Comments:[id number] Administration Instructions:CHEWED Entresto 24 MG-26 MG;1 EACH PO BID Start:29-Apr-2023 Comments:1 EACH PO BID carvedilol 3.125 MG Oral Tablet [Coreg];3.125 MILLIGRAM PO BID MEALS Start:29-Apr-2023 Comments:3.125 MG PO BID MEALS JARDIANCE;10 MILLIGRAM PO DAILY Start:29-Apr-2023 Comments:10 MG PO DAILY omeprazole 40 MG Delayed Release Oral Capsule;40 MILLIGRAM PO DAILY Start:29-Apr-2023 Comments:40 MG PO DAILY atorvastatin 80 MG Oral Tablet;80 MILLIGRAM PO BEDTIME Start:29-Apr-2023 Comments:80 MG PO BEDTIME spironolactone 25 MG Oral Tablet;25 MILLIGRAM PO DAILY Start:29-Apr-2023 Comments:25 MG PO DAILY ticagrelor 90 MG Oral [...] SUBCUTANEOUS BID Start:03-Feb-2022 Comments:45 UNITS SUBQ BID atorvastatin 80 MG Oral Tablet;80 MILLIGRAM PO BEDTIME Start:02-Aug-2018 Status:Discontinued Comments:80 MG PO BEDTIME aspirin 81 MG Chewable Tablet;81 MILLIGRAM PO DAILY Start:02-Aug-2018 Comments:81 MG PO DAILY ticagrelor 90 MG Oral [...] SUBQ DAILY Procedures CHEST AP OR PA ONLYResult:[facility] Name: FLOR ADAMS [facility] Phys: Kristian Luz DO [address] : 1970 Age: 54 Sex: [place] [address] Acct: [id number] Loc: E.ED PHONE #: [phone] Exam Date: 09/21/2024 Status: REG ER FAX #: [phone] Radiology No: Unit No: [id number] EXAMS: [id number] XR CHEST AP OR PA ONLY Exam: XR CHEST 1 VIEW Indication:cp; CHEST TIGHTNESS;CARDIAC HX Comparison: 04/29/2023 Findings/ Impression: The lungs are clear. The heart and mediastinum are normal. Trachea is patent. No acute bony abnormality. Electronically signed by: Braulio Pena MD 09/21/2024 05:54 PM EDT at 1754 Reported and signed by: Braulio Marino MD CC: Kristian Luz DO Dictated Date/Time: 09/21/2024 (1753)Technologist: FEI CRUZ RT(R) Transcribed Date/Time: 09/21/2024 (1753)Marketing Services Specialist: BENJIE Electronic Signature Date/Time: 09/21/2024 (1753)Printed Date/Time: 09/21/2024 (175) BATCH NO: N/A PAGE 1 Signed Report Date:21-Sep-2024 Status:Completed Social History Smoking Status Tobacco smoking consumption unknown Recorded: Never smoked tobacco Recorded: 03-Feb-2022 Never smoked tobacco Recorded: 01-Aug-2018 Never smoked tobacco Recorded: 03-Feb-2017 Never smoked tobacco Recorded: 25-Jan-2017 Results TROPI HIGH SENSITIVITY Ordered On:21-Sep-2024 19:34 TROPI HIGH TCGLHDYTHXC04en/L Range:0-76ng/L Comments:99th percentileFemale: <51 ng/L Male: <76 ng/LPer the 4th universal definition of Myocardial infarction(DE), DE is defined as the presence of acute [...] EOSINOPHIL #0.17{10_3/uL}(Normal) Range:0.04{10_3/uL}-0.54{10_3/uL} EOSINOPHIL %2.4%(Normal) Range:0 .8%-7% EAUANHMJUL86.1%(Normal) Range:40 .1%-51% AGRYQIHJOG35.6g/dL(Normal) Range :13.7g/dL-17.5g/dL IMMATURE GRANULOCYTE S #0.03{10_3/uL}(Normal) Range:0{10_3/uL}-0.03{10_3/uL} IMMATURE GRANULOCYTE S %0.4%(Normal) Range:0%-0.4% LYMPHOCYTE #1.42{10_3/uL}(Normal) Range:1.32{10_3/uL}-3.57{10_3/uL} LYMPHOCYTE %20.0%(Low) Range:21. 8%-53.1% MEAN CELL HGB27.7pg(Normal) Range:25.7pg-32.2pg MEAN CELL HGB TRIUQLKZESNGF76.1g/dL(Norm al) Range:32.3g/dL-36.5g/dL MEAN CELL DXSLAT78.7fL(Normal) Range:79fL-92.2fL MONOCYTE #0.54{10_3/uL}(Normal) Range:0.3{10_3/uL}-0.82{10_3/uL} MONOCYTE %7.6%(Normal) Range:5.3 %-12.2% MEAN PLATELET VOLUME9.3fL(Low) Range:9.4fL-12.4fL NEUTROPHIL #4.90{10_3/uL}(Normal) Range:1.78{10_3/uL}-5.38{10_3/uL} NEUTROPHIL %69.0%(High) Range:34 %-67.9% NUCLEATED RED BLOOD CELL #0.00{10_3/uL}(Normal) Range:0{10_3/uL}-0.18{10_3/uL} NUCLEATED RED BLOOD CELL %0.0%(Normal) Range:0%-0.2% PLATELET LUSIJ058{10_3/uL}(Normal) Range:150{10_3/uL}-400{10_3/uL} RED BLOOD CELL5.27{10_6/uL}(Normal) Range:4.63{10_6/uL}-6.08{10_6/uL} RED CELL DISTRIBUTIO N WIDTH12.9%(Normal) Range:11.6%-14.4% WHITE BLOOD CELL7.1{10_3/uL}(Normal) Range:4{10_3/uL}-10.5{10_3/uL} COMPREHENSIVE METABOLIC PANEL Ordered On:21-Sep-2024 18:16 ALBUMIN4.0g/dL(Normal) Range:3. 4g/dL-5g/dL ALKALINE PHOSPHATASE TOTAL93[IU]/L(Normal) Range:46[IU]/L-116[IU]/L SGPT/ALT23[IU]/L(Normal) Range:1 4[IU]/L-63[IU]/L SGOT/AST15[IU]/L(Normal) Range:1 5[IU]/L-37[IU]/L BILIRUBIN TOTAL0.7mg/dL(Normal) Range:0.2mg/dL-1mg/dL BUN/CREATININE RATIO20.4{ratio}(Normal) Range:5{ratio}-22{ratio} BLOOD UREA PMOFECRE42rq/dL(High) Range:7mg/dL-18mg/dL CALCIUM9.2mg/dL(Normal) Range:8. 5mg/dL-10.1mg/dL SCPRORBH982xpje/L(Normal) Range: 98mmol/L-107mmol/L CARBON WMDULCQ09tgos/L(Normal) Range:21mmol/L-32mmol/L CREATININE0.93mg/dL( Normal ) Range:0.7mg/dL-1.3mg/dL ANION LPU3gtii/L(Normal) Range:8 mmol/L-17mmol/L eGFR> 90 Range:90-0 Comments:The eGFR is calculated using the 2020 CKD-EPI Cr equation,which includes serum Cr, age, and sex but does not include arace coefficient. The National Kidney Foundation recommendsthis formula for calculating eGFR in adults. GFR will notcalculate if sex is unknown or patient age is <18 years. Ref range: >/=90mL/min/1.73m2 UNPDNGE145rf/dL(High) Range:74mg /dL-106mg/dL POTASSIUM4.0mmol/L(Normal) Range :3.5mmol/L-5.1mmol/L IHBTQL068xddg/L(Normal) Range:13 6mmol/L-145mmol/L TOTAL PROTEIN8.0g/dL(Normal) Range:6.4g/dL-8.2g/dL ALBUMIN/GLOBULIN RATIO1.0{ratio}(Normal) Range:1{ratio}-2{ratio} Corrected Calcium9.2(Normal) Range:8.5-10.1 Comments:Calcium corrected for Albumin. GLOBULIN4.0g/dL(High) Range:1.9g /dL-3.7g/dL TROPI HIGH SENSITIVITY Ordered On:21-Sep-2024 18:16 TROPI HIGH BAVJLCTJVVL89mn/L Range:0-76ng/L Comments:99th percentileFemale: <51 ng/L Male: <76 ng/LPer the 4th universal definition of Myocardial infarction(DE), DE is defined as the presence of acute [...] Range:0.36uU/mL-3.74uU/mL D-DIMER QUANTITATIVE Ordered On:21-Sep-2024 20:07 D-DIMER QKOUZRPZVOOB165{ng/mLFEU}( Normal) Range:0{ng/mLFEU}-529{ng/mLFEU} Comments:When excluding VTE, the cutoff [...] BIN (A1C)7.4%(Abnormal) Range:0-5.7% Comments:A1C < 5.7% - MvlpyqM2U 5.7%-6.4% - For screening of yjicrdwuemqP1Q > OR = 6.5 - DiabetesNote: New above reference intervals follow the ADArecommendations Vital Signs 21-Sep-2024 19:31 BP Oavhrrri254on[Hg] Comments:11 6 BP Lypbrxdkp51yw[Hg] Comments:81 21-Sep-2024 19:30 Pulse81/min Comments:81 Respiratory Rate12/min Comments: 12 O2 SAT97% Comments:97 21-Sep-2024 19:00 Pulse84/min Comments:84 Respiratory Rate21/min Comments: 21 O2 SAT94% Comments:94 BP Tyrgdezc870hz[Hg] Comments:10 5 BP Thiwwazxu33wn[Hg] Comments:68 21-Sep-2024 18:30 Pulse81/min Comments:81 Respiratory Rate18/min Comments: 18 O2 SAT92% Comments:92 BP Hjgecrlw550wi[Hg] Comments:10 6 BP Lgvvzrxda38pg[Hg] Comments:76 21-Sep-2024 18:14 O2 SAT99% Comments:99 21-Sep-2024 18:05 Pulse83/min Comments:83 O2 SAT93% Comments:93 21-Sep-2024 18:04 BP Piqmerrq880sq[Hg] Comments:11 5 BP Setybnqky71mb[Hg] Comments:72 21-Sep-2024 18:00 Pulse83/min Comments:83 Respiratory Rate19/min [...] Comments:98 21-Sep-2024 17:30 O2 SAT96% Comments:96 BP Ihyawkhk954jb[Hg] Comments:11 9 BP Sjtxosnit06id[Hg] Comments:74 21-Sep-2024 17:25 O2 SAT97% Comments:97 21-Sep-2024 17:24 BP Laxstnjv993sl[Hg] Comments:11 4 BP Krnceeghk43is[Hg] Comments:62 21-Sep-2024 17:13 Fupxropioye39.6f Comments:98.6 Pulse90/min Comments:90 Respiratory Rate16/min Comments: 16 O2 SAT97% Comments:97 BP Ccokfeyt418ze[Hg] Comments:11 4 BP Ffieacjnm83kh[Hg] Comments:78 Oxygen delivery devices: Comment s:Room air Height6.0443388[ft_us] Comments: 6 Ctphom806pk Comments:125.000 Encounters Inpatient encounter Encounter Reason:CHEST PAIN, ACS RO Encounter Diagnosis:Essential (primary) hypertension,Atherosclerotic heart disease of [place] coronary artery without angina pectoris,Type 2 diabetes mellitus without complications,Hyperlipidemia, unspecified,FPC (current) use of insulin,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,LNG TRM (CRNT) USE INJECTABLE NON-INSULIN ANTIDIABETIC DRUGS,FPC (current) use of aspirin,FPC (current) use of antithrombotics/antiplatelets,Presence of coronary angioplasty implant and graft,Procedure and treatment not carried out because of patient's decision for other reasons,Other chest pain 21-Sep-2024 17:39Qv7-Buo-1464 19:52 [facility] Discharge Disposition:Left against medical advice or discontinued care Natty Cardoso TO-5-Cnn21-Sep-2024 [facility] ([facility])EMERGENCY PROVIDER REPORTREPORT#:[id number] REPORT STATUS: SignedDATE:09/21/24 TIME: ATIENT: ANGIEFLOR UNIT #: [id number]#: [id number] [address]DOB: [birth year] AGE: 54 SEX: M PCP PHYS: No Primary or Family PhysicianSERVICE AUTHOR: Kristian Luz SRV REP SRV TM: [id number] edits or amendments must be made on the electronic/computer chartHPI-Chest Pain 40 and OverFree Text HPI NotesFree Text HPI Ydrwy94-fdht-xfx male with chest pain.GeneralInitial Greet Date/Time 09/21/24 [...] EACH PO BIDDulaglutide (Trulicity) 3 MG SUBQ K9CJjygxjnfce Suicide Risk (nurs) No riskPast Medical History:Reports: Coronary artery disease ( HAS A STENT), Diabetes mellitus,Hypertension.Additional Medical HistoryDyslipidemiaPast Surgical History:Denies: Abdominal surgery.Additional Surgical HistoryCoronary artery stents v8Hmthuh History:Reports: Diabetes, Hypertension.Alcohol Use Denies EtOH useDrug [...] distressCardiovascular Heart rate normal, Regular rhythmAbdomen/GI Soft, Non-tender, no guarding, no rebound, BS normoactive, no [...] Report Impression - Status: SIGNED Entered: 09/21/2024 175Impression: The lungs are clear. The heart and mediastinum arenormal. Trachea is patent. No acute bony abnormality.Electronically signed by: Braulio Pena MD 09/21/2024 05:54PM EDT RPWorkstation: [id number] By: Cayla - DIANA FontanaG #1 InterpretationText/Dict NoteNormal sinus rhythm, incomplete right [...] Pulse Ox 97 06/ 1713 B/P 114/78 06/ 1713 O2 Delivery Room air / 1713 Temp 37.0 06/05 1713 Pulse 90 06/ 1713 Resp 16 06/05 1713 B/P Mean 78 06/05 1724Last Documented: Result Date Time Pulse Ox 94 06/05 1900 B/P 105/68 06/05 1900 B/P Mean 81 06/05 1900 Pulse 84 06/05 1900 Resp 21 06/05 1900 O2 Delivery Room air 06/ 1713 Temp 37.0 06/05 1713All vital signs available at the time of this entry have been reviewed.Clinical ImpressionClinical ImpressionPrimary Impression: Chest painDisposition DecisionHospitalize Request Time 185 Request Date 09/21/24 )( Accepts Hospitalization Yes )( Accepted Time 1853 )( Accepted Date 09/21/24Discharge/Care PlanReferralsProvider Referral: No Primary or Family Physician at 1721RPT#:[id number] OF REPORT
--- OUTSIDE RECORDS SUMMARY | 2024-12-01 15:45 | XMS_ITS | Clinical Summary ---
Author Organization [facility] Address [address] [facility] [address] [place] [phone] Phone Care Team Providers Care Test Automation Architect Name Role Phone Rene Yates MD Primary Care Provider [phone] Encounters Date Type Department Care Team Description 09/01/2024 Transcribe Orders [facility] Neurology [address] [place] [address] Yoselin Gold MA Type 2 diabetes mellitus [...] Devices Not on file Insurance [place] [place] [address] ACO ACO ACO ACO Care Teams Test Automation Architect Relationship Specialty Start Date End Date Rene Yates MD [address] [place] [address] [place] [address] PCP - General Internal Medicine 09/01/24 Additional Source Comments The information contained in this document represents components of the legal health record. It is not the complete legal health record.[facility]
[2024-12-01 15:46] VITALS: BP 126/84; PULSE 96; O2SAT 98; BMI 35.4
--- NOTE | 2024-12-01 15:46 | A.OFFPC_ITS ---
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 Pt was admitted to [facility] on 11/24 for an evaluation and treatment of Right hand/wrist swelling. Pt has h/o B/L Carpal Tunnel syndrome and occasionally he wears Brace. He was treated with Colchine and Prednisone with great symptom relief. Denies any pain and swelling today. Uric Acid Panel Negative. Xray and Doppler US Negative. Pt c/o right Forearm Olecranon swelling without associated erythema or tenderness. [facility] Medical History (Updated 12/01/24 @ 17:42 by Katrina Morrell NP) Ganglion cyst Swelling of right hand STEMI (ST elevation myocardial infarction) Nocturnal hypoxemia Infection of penis History of torn meniscus of right knee CAD (coronary artery disease) Type 2 diabetes mellitus with diabetic polyneuropathy Essential hypertension Hyperlipidemia LDL goal <70 Obesity due to excess calories Surgical History Hx of cardiac catheterization History of lateral meniscus repair of right knee Family History Father No problems noted. Mother No problems noted. Son Diabetes mellitus type 1 Social History Household Members: Family Housing: Apartment Alcohol intake: current Alcohol intake frequency: does not drink Patient Tobacco Use Status: Never used Tobacco e-Cigarette/Vaping Use: Never Used Second Hand Smoke Exposure: No service: No Current occupational status: unemployed Cognitive needs: No Hearing needs: No Vision needs: Yes (Glasses) Questionnaire PHQ-9 Over the last 2 weeks, how often have you been bothered by any of the following problems? 1. Little interest or pleasure in doing things: not at all 2. Feeling down, depressed, or hopeless: not at all 3. Trouble falling or staying asleep, or sleeping too much: nearly every day 4. Feeling tired or having little energy: nearly every day 5. Poor appetite or overeating: not at all 6. Feeling bad about yourself - or that you are a failure or have let yourself or your family down: not at all 7. Trouble concentrating on things, such as reading the newspaper or watching television: not at all 8. Moving or speaking so slowly that other people could have noticed. Or the opposite - being so fidgety or restless that you have been moving around a lot more than usual: not at all 9. Thoughts that you would be better off or of hurting yourself in some way: not at all Total score: 6 Depression Screening Interpretation: Positive Depression Screening Follow-up: Existing condition Depression Screening Done: Yes Source: Developed by Drs. David Celis, Jazmin Christensen, Clif Oconnell and colleagues, with an educational keyanna from [employer]. Thrive Questionnaire Date Thrive assessed: 12/01/24 I am a: Patient What is your living situation today?: I have a steady place to live Within the past 12 months, did the food you bought not last and you didn't have the money to get more?: Never true Within the past 12 months, did you worry whether your food would run out before you got money to buy more?: Never true Do you have trouble paying for medicines?: No Do you have trouble getting transportation to medical appointments?: Yes Do you have trouble paying your heating and electricity bill?: Yes Do you have trouble taking care of your child, family member or friend?: No Do you have trouble with day-to-day activities such as bathing, preparing meals, shopping, managing finances, etc.?: No Are you currently unemployed and looking for a job?: Yes Are you interested in more education?: No Please select the resources that you would like help with: None Currently or been in a relationship where the following occur: No concerns reported THRIVE Score: 2 AUDIT C Alcohol Use Questionnaire (AUDIT-C) 1. How often do you have a drink containing alcohol?: Never 3. How often do you have six or more drinks on one occasion?: Never Total Score: 0 LLOYD-7 AMB Questionnaire LLOYD-7 Date LLOYD - 7 assessed: 12/01/24 Feeling nervous, anxious, or on edge: 0 = Not at all Not being able to stop or control worryin = Nearly every day Worrying too much about different things: 0 = Not at all Trouble relaxin = More than half the days Being so restless that it is hard to sit still: 2 = More than half the days Becoming easily annoyed or irritable: 0 = Not at all Feeling afraid as if something awful might happen: 3 = Nearly every day Total LLOYD-7 score (0-4 normal; 5-9 mild; 10-14 moderate; 15-21 severe): 10 Source: Developed by Drs. David Celis, Jazmin Christensen, Clif Oconnell and colleagues, with an educational keyanna from [employer]. LLOYD-7 Assessment Billing LLOYD-7 Assessment Tool: LLOYD-7 Assessment 92432 Review of Systems Const All systems reviewed & are unremarkable except as noted in HPI and below Physical exam (Primary Care) Vital Signs: Last Vital Signs Pulse 96 12/01/24 15:46 BP 126/84 12/01/24 15:46 Pulse Ox 98 12/01/24 15:46 Oxygen Delivery Method Room Air 12/01/24 15:46 BMI result Body Mass Index 35.4 Tobacco/Smoking Status: Tobacco use Status Tobacco use date assessed 12/01/24 12/01/24 15:55 Patient Tobacco Use Status Never used Tobacco 12/01/24 15:55 e-Cigarette/Vaping Use Never Used 12/01/24 15:55 PHQ-9: PHQ-9 Score PHQ-9: Total score 6 12/01/24 15:55 Depression Screening Interpretation: Positive Depression Screening Follow-up: Existing condition Thrive Assessment: Date of Thrive Assessment Date Thrive assessed 12/01/24 12/01/24 15:55 Currently or been in a relationship where the following occur: No concerns reported Const General: no acute distress Nutritional Appearance: obese Orientation/consciousness: patient oriented x3 Neuro General: patient oriented x3, gait normal and moves all extremities Extrem Right upper extremity: elbow/forearm Details: swelling Location: of the olecranon (Medium size Ball right Olecranon) Psych Speech and movement: Normal speech and movement present Coding Level of Care Code Est Pt Level 4 (23386) Diagnoses Swelling of right hand M79.89 Additional Codes LLOYD-7 Assessment Billing - LLOYD-7 Assessment Tool: LLOYD-7 Assessment 73336 ([id number]) Time Spent (min) 20 Assessment & Plan Assessment & Plan (1) Swelling of right hand: Code(s): M79.89 - Other specified soft tissue disorders Category: Medical Plan: Resolved.
== END 2024-12-01 16:55 | disposition home or self-care (01) ==
LOC: HO.HMCH 15:43
PROVIDERS: PCP Physician Assistant; Visit Provider Nurse Practitioner Family
DX: M79.89 Other specified soft tissue disorders (principal)

== ENCOUNTER → 2024-12-01 15:43 | Outpatient (BNVA) | payer OTHER, SELFPAY | PROVIDERS: PCP Physician Assistant; Visit Provider Nurse Practitioner Family | DX: M79.89 Other specified soft tissue disorders (principal) | CPT/HCPCS: 96127; 99212 ==

== ENCOUNTER 2025-01-10 15:04 | Outpatient (AMB) | payer OTHER, SELFPAY ==
[2025-01-10 15:09] VITALS: BP 110/60; PULSE 86; RESP 18; O2SAT 94; BMI 36.2
--- NOTE | 2025-01-10 15:09 | A.OFFPC_ITS ---
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 Accompanied by: Self / Same As Patient Allergies metoprolol (METOPROLOL) Allergy (Unknown, Verified 01/10/25 15:39) UNKNOWN Medication List - Last Reconciled 01/10/25 by Will De La Torre PA-C acetaminophen 1,000 mg (2 x 500 mg) PO .q8 PRN atorvastatin 80 mg PO BEDTIME blood sugar diagnostic (FreeStyle Lite Strips) As directed three times a day blood-glucose meter (FreeStyle Lite Meter kit) As directed to test 3 times per day blood-glucose sensor (FreeStyle Rod 3 Plus Sensor device) As directed blood-glucose,digital data analyst,cont (FreeStyle Rod 3 [place]) As directed carvedilol 3.125 mg PO BID 90 days clopidogrel 75 mg PO DAILY CPAP (CPAP Machine/Device) As directed cyclobenzaprine 10 mg PO BID 7 days dulaglutide (Trulicity) 3 mg (0.5 mL) subcut QWEEK 90 days empagliflozin (Jardiance) 10 mg PO DAILY 90 days ezetimibe 10 mg PO DAILY gabapentin 300 mg PO DAILY 15 days hydroxyzine HCl 20 mg (2 x 10 mg) PO BEDTIME 15 days lancets (FreeStyle Lancets) As directed three time a day Lantus Solostar U-100 Insulin (insulin glargine) 45 units (0.45 mL) subcut BID 90 days NS omeprazole 40 mg PO DAILY pen needle, diabetic As directed sacubitril-valsartan 49-51 mg 1 tab PO BID spironolactone 25 mg PO DAILY tadalafil (Cialis) 20 mg PO DAILY PRN 90 days tadalafil 5 mg PO DAILY 90 days Tobacco use date assessed: 01/10/25 Dental Screening Dental Screen Date: 01/10/25 Did you have a dental visit in the last 12 months?: Yes Did you have a dental problem in the last 6 months where you did not have access to dental care?: No Was dental information given to patient?: Patient has dentist HPI 3 MNTH F/U HPI Details Patient is a 54-year-old male here today for a follow-up visit. Patient has a past medical history significant for type 2 diabetes, coronary artery disease with stent x3, ischemic cardiomyopathy, hypertension, hyperlipidemia, morbid obesity, obstructive sleep apnea. Concern--> has multiple skin tags over bilateral axillary regions. Will like to see concession stand attendant for removal. Patient also has been experiencing a lot of anxiety as of late mostly related to his medical problems. He is interested now in speaking with a mental health therapist in starting SSRI therapy to with his anxiety Median nerve neuropathy: Has followed up with Orthopedics here in [place] and is considering carpal tunnel release surgery. He is concerned with the success rate for this surgery. 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 The patient has been using wrist splints at night and has tried physical therapy, but symptoms persist. A previous nerve conduction study indicated mild compression of the median nerve, consistent with carpal tunnel syndrome. Unfortunately his EMG was about 2 years ago will likely need new EMG testing for further evaluation. We did discuss the possibility of doing occupational therapy to help his bilateral hand strength and dexterity though he is still considering . Coronary artery disease/ heart failure with reduced ejection fraction: Recently had stents placed in his coronary arteries in 2022. Continues to follow cardiology. Also does have heart failure and does managed with spironolactone an entresto. His Brilinta was transitioned to clopidogrel His heart failure seems well compensated Recently had his interested though increased for better blood pressure control. As far as his heart failure has been well controlled. Most recent echocardiogram does have slightly reduced ejection fraction at 35-40%. .. Type 2 diabetes: Today's A1c elevated at 9.5 from 7.3. He does admit to dietary indiscretion and has noted weight gain since last office visit . He promises to get back on track with his diabetic diet. Patient's most recent fasting blood sugar much improved.. He continues on Trulicity 3 mg and long- acting insulin 45 units b.i.d. . His type 2 diabetes is complicated by neuropathy particular in his lower extremities. He does report having burning and numbness sensation bilateral feet. .. Obstructive sleep apnea ( severe): Followed by pulmonology ( Dr Mckeon). Tries to be compliant with daily use of his CPAP machine [facility] Medical History Ganglion cyst Swelling of right hand STEMI (ST elevation myocardial infarction) Nocturnal hypoxemia Infection of penis History of torn meniscus of right knee CAD (coronary artery disease) Type 2 diabetes mellitus with diabetic polyneuropathy Essential hypertension Hyperlipidemia LDL goal <70 Obesity due to excess calories Surgical History Hx of cardiac catheterization History of lateral meniscus repair of right knee Family History Father No problems noted. Mother No problems noted. Son Diabetes mellitus type 1 Social History Household Members: Family Housing: Apartment Alcohol intake: current Alcohol intake frequency: does not drink Patient Tobacco Use Status: Never used Tobacco e-Cigarette/Vaping Use: Never Used Second Hand Smoke Exposure: No service: No Current occupational status: unemployed Cognitive needs: No Hearing needs: No Vision needs: Yes (Glasses) Questionnaire Thrive Questionnaire Date Thrive assessed: 10/04/24 I am a: Patient What is your living situation today?: I have a steady place to live Within the past 12 months, did the food you bought not last and you didn't have the money to get more?: Never true Within the past 12 months, did you worry whether your food would run out before you got money to buy more?: Never true Do you have trouble paying for medicines?: No Do you have trouble getting transportation to medical appointments?: Yes Do you have trouble paying your heating and electricity bill?: Yes Do you have trouble taking care of your child, family member or friend?: No Do you have trouble with day-to-day activities such as bathing, preparing meals, shopping, managing finances, etc.?: No Are you currently unemployed and looking for a job?: Yes Are you interested in more education?: No Please select the resources that you would like help with: None Currently or been in a relationship where the following occur: No concerns reported THRIVE Score: 2 LLOYD-7 AMB Questionnaire LLOYD-7 Date LLOYD - 7 assessed: 12/01/24 Source: Developed by Drs. David Celis, Jazmin Christensen, Clif Oconnell and colleagues, with an educational keyanna from [email or web address]. Review of Systems Const Denies headache(s) Eyes Denies loss of vision ENT Denies vertigo, Denies dizziness, Denies headache(s) and Denies sore throat Card Denies chest pain, Denies leg edema and Denies lightheadedness Resp Denies cough, Denies hemoptysis and Denies wheezing GI Denies abdominal pain, Denies melena, Denies constipation, Denies diarrhea and Denies vomiting Denies dysuria, Denies urinary frequency and Denies urinary urgency Musc Denies arthralgias, Denies joint swelling, Denies numbness and Denies tingling Neuro Denies Abnormal speech present, Denies behavioral changes, Denies vertigo, Denies dizziness, Denies headache(s), Denies loss of vision, Denies memory loss, Denies numbness and Denies tingling Psych Denies anxiety, Denies behavioral changes, Denies depression, Denies memory loss and Denies panic attacks Timmy/Lymph Denies easy bleeding and Denies easy bruising Aller/Immun Denies wheezing Physical exam (Primary Care) Vital Signs: Last Vital Signs Pulse 86 01/10/25 15:09 Resp 18 01/10/25 15:09 BP 110/60 01/10/25 15:09 Pulse Ox 94 01/10/25 15:09 Oxygen Delivery Method Room Air 01/10/25 15:09 BMI result Body Mass Index 36.2 BMI Assessment/Plan discussion: High BMI High, discussed plan: lifestyle, weight reduction, dietary and physical activity Tobacco/Smoking Status: Tobacco use Status Tobacco use date assessed 01/10/25 01/10/25 15:10 Patient Tobacco Use Status Never used Tobacco 01/10/25 15:10 e-Cigarette/Vaping Use Never Used 01/10/25 15:10 Thrive Assessment: Date of Thrive Assessment Date Thrive assessed 10/04/24 01/10/25 15:10 Currently or been in a relationship where the following occur: No concerns reported Const General: healthy appearing, no acute distress, alert and awake Nutritional Appearance: well nourished Orientation/consciousness: oriented to person, oriented to place and oriented to time HENMT Ears: TM's normal bilaterally General nose exam: Normal nasal mucous membranes and turbinates present Eyes Conjunctivae: conjunctivae normal Sclerae: sclerae normal Pupils: Equal, round and reactive pupils present Neck Neck: Yes no lymphadenopathy and Yes no JVD Thyroid: Thyroid normal Carotids: no bruits Resp Effort & Inspection: normal respiratory effort and not tachypneic Auscultation: no crackles, no rales, no rhonchi and no wheezes Cardio Rate: regular rate Rhythm: regular rhythm Heart sounds: no murmurs and normal S1 and S2 GI Palpation (GI): Soft to palpation, nontender, no hepatomegaly and no splenomegaly Auscultation: normal bowel sounds Skin General skin exam: no rashes or lesions noted and dry skin Neuro General: oriented to person, oriented to place and oriented to time Cranial nerves: Yes Equal, round and reactive pupils present Speech: No Abnormal speech present Gait exam (Neuro): Normal gait present Motor exam (neuro): no tremor noted Extrem Right upper extremity: full ROM Left upper extremity: full ROM Right lower extremity: full ROM; no edema Left lower extremity: full ROM; no edema Psych Mental Status: mental status grossly normal Speech and movement: Normal speech and movement present Affect: normal affect Attitude: cooperative Thought process: Normal thought process present Results AMB Hemoglobin A1c AMB Hemoglobin A1c 9.5 % Last Edit by Galina Stinson MA on 01/10/25 15:50 Coding Level of Care Code Est Pt Level 4 (92115) Diagnoses Type 2 diabetes mellitus with diabetic polyneuropathy, without long-term current use of insulin E11.42 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 He admits to dietary indiscretion has gained weight since last office visit. He reports he has been more diligent with his diet and has lost weight since last office visit. He continues with Trulicity 3 mg weekly, insulin therapy. . Goal A1c is to be below 7.0 (2) Multiple axillary skin tags: Code(s): L91.8 - Other hypertrophic disorders of the skin Category: Medical Plan: Patient has multiple skin tags that are bothersome over bilateral axillary regions. Will like to see a concession stand attendant for removal of multiple skin tags. (3) CAD (coronary artery disease): Code(s): I25.10 - Atherosclerotic heart disease of [place] coronary artery without angina pectoris Category: Medical Qualifiers: Coronary Disease-Associated Artery/Lesion type: [place] artery [place] vs. transplanted heart: [place] heart Associated angina: with stable angina Qualified Code(s): I25.118 - Atherosclerotic heart disease of [place] coronary artery with other forms of angina pectoris Plan: Patient continues to follow [facility]. He continues on clopidogrel and high-dose statin therapy. Optimal LDL to be below 70 (4) Essential hypertension: Code(s): I10 - Essential (primary) hypertension Category: Medical Plan: Patient's blood pressure acceptable today in office. Will continue his current dose of antihypertensive medication with goal blood pressure to remain below 140/90 (5) Obstructive sleep apnea: Comment: THIS GENTLEMAN HAS LONGSTANDING HISTORY OF OBSTRUCTIVE SLEEP APNEA, SINCE LAST VISIT 2 MONTHS AGO, HE HAS BEEN USING CPAP VERY REGULARLY EVERY NIGHT. HE FULLY REALIZES THE BENEFIT OF USING THE CPAP, CLAIMING THAT HIS SLEEP IS MUCH BETTER AND HE WAKES MUCH MORE REFRESHED. ( CPAP, ,FULLFACE MASK PRESSURE 15 CM ) LOST HIS CPAP DEVICE IN THE LUGGAGE, STILL WAITING. TO GET HIS LUGGAGE. Code(s): G47.33 - Obstructive sleep apnea (adult) (pediatric) Category: Medical Plan: Continues to follow [place] [facility] (6) Hyperlipidemia LDL goal <70: Code(s): E78.5 - Hyperlipidemia, unspecified Category: Medical Plan: Optimal LDL to be below 70 (7) Diabetic neuropathy associated with diabetes mellitus due to underlying condition: Code(s): E08.40 - Diabetes mellitus due to underlying condition with diabetic neuropathy, unspecified Category: Medical Qualifiers: Diabetes mellitus complication detail: diabetic polyneuropathy Qualified Code(s): E08.42 - Diabetes mellitus due to underlying condition with diabetic polyneuropathy Plan: Has per HPI patient has been experiencing bilateral lower extremity neuropathy associated with his type 2 diabetes. He is open to the idea of trying medication and topical diabetic neuropathy treatment. Will refer to [facility] for capsaicin cream treatments. (8) Left carpal tunnel syndrome: Code(s): G56.02 - Carpal tunnel syndrome, left upper limb Category: Medical Plan: Patient's bilateral hand and wrist/ upper extremity weakness and numbness has not improved, would like to retest nerve conduction Again advise to consider carpal tunnel release as he is not clinically been improving with conservative management. (9) LLOYD (generalized anxiety disorder): Code(s): F41.1 - Generalized anxiety disorder Category: Medical Plan: Patient has been experiencing anxiety for quite some time though has got worse lately due his of his medical problems. He is interested in starting medication and trying to speak with a mental health therapist about his anxiety. Will start sertraline 50 mg Orders: Orders AMB Hemoglobin A1c Today E11.42 - Type 2 diabetes mellitus with diabetic polyneuropathy Referrals Dermatology Referral L91.8 - Other hypertrophic disorders of the skin Counseling Referral F41.1 - Generalized anxiety disorder Medications: New sertraline 50 mg PO DAILY 30 tabs 1RF 30 days F41.1 - Generalized anxiety disorder
--- OUTSIDE RECORDS SUMMARY | 2025-01-10 17:35 | XMS_ITS | Clinical Summary ---
Author Organization [facility] Address [address] [address] Phone Care Team Providers Care Snuff Blender Name Role Phone Rene Yates MD Primary Care Provider [phone] Social History Tobacco Use Types Packs/Day Years [...] 2018 ZOSTER VACCINES (1 of 2) 2018 INFLUENZA VACCINE (#1) 2024 COVID-19 VACCINE ( - 2023-2 5 season) 2024 HEPATITIS A VACCINES Aged Out No long [...] Devices Not on file Insurance [place] [place] [address] [place] [address] [place] [address] [place] [address] ACO Care Teams Snuff Blender Relationship Specialty Start Date End Date Rene Yates MD [address] [place] [address] [place] [id number] PCP - General Internal Medicine 09/01/24 Additional Source Comments The information contained in this document represents components of the legal health record. It is not the complete legal health record.[facility]
== END 2025-01-10 16:00 | disposition home or self-care (01) ==
LOC: HO.HMCH 15:05
PROVIDERS: PCP Physician Assistant; Visit Provider Physician Assistant
DX: E11.42 Type 2 diabetes mellitus with diabetic polyneuropathy (principal); L91.8 Other hypertrophic disorders of the skin; I25.118 Atherosclerotic heart disease of native coronary artery with other forms of angina pectoris; I10 Essential (primary) hypertension; G47.33 Obstructive sleep apnea (adult) (pediatric); E78.5 Hyperlipidemia, unspecified; G56.02 Carpal tunnel syndrome, left upper limb; F41.1 Generalized anxiety disorder

== ENCOUNTER → 2025-01-10 15:04 | Outpatient (BNVA) | payer OTHER, SELFPAY | PROVIDERS: PCP Physician Assistant; Visit Provider Physician Assistant | DX: E11.42 Type 2 diabetes mellitus with diabetic polyneuropathy (principal); L91.8 Other hypertrophic disorders of the skin; I25.118 Atherosclerotic heart disease of native coronary artery with other forms of angina pectoris; I10 Essential (primary) hypertension; G47.33 Obstructive sleep apnea (adult) (pediatric); E78.5 Hyperlipidemia, unspecified; G56.02 Carpal tunnel syndrome, left upper limb; F41.1 Generalized anxiety disorder; Z79.85 Long-term (current) use of injectable non-insulin antidiabetic drugs; Z79.899 Other long term (current) drug therapy | CPT/HCPCS: 83036; 99212 ==